=== PATIENT | male | born 1955 | race Caucasian/White ===

== ENCOUNTER 2024-07-30 14:47 | Inpatient (IN) | payer MEDICARE, SELFPAY ==
[2024-07-30] VITALS (31 sets, daily range): BP systolic 91–153; BP diastolic 58–120; BMI 38.3
[2024-07-30 12:38] LABS: % Basophils 0.2 % (0-2); % Eosinophils 0.4 % (0-6); % Immature Granulocytes 0.6 % (0-0.5); % Lymphocytes 10.9 % (20.5-51.1); % Neutrophils 81.9 % (42.2-75.2); Absolute Eosinophils 0.1 10^3/uL (0-0.7); Absolute Immature Granulocytes 0.1 10^3/uL (0-0.05); Absolute Lymphocytes 1.8 10^3/uL (1.2-3.4); Absolute Neutrophils 13.5 10^3/uL (1.4-6.5); Hematocrit 39.6 % (39.0-52.0); Hemoglobin 13.9 g/dL (13.0-18.0); Mean Corp Hgb Conc. 35.1 g/dL (33.0-37.0); Mean Corpuscular Hgb 33.8 pg (27.0-31.0); Mean Corpuscular Volume 96.4 fL (80.0-94.0); Mean Platelet Volume 11.4 fL (7.4-10.4); Nucleated Red Blood Cells % 0 % (-); Platelet Count 207 10^3/uL (130-400); Red Blood Cell Count 4.11 10^6/uL (4.70-6.10); Red Cell Dist. Width 14.5 % (11.5-14.5); White Blood Cell Count 16.5 10^3/uL (4.8-10.8)
--- NOTE | 2024-07-30 12:50 | EDRN ---
Per Dr. Clements request pt placed on crash cart pad and ECG monitoring.
[2024-07-30 12:57] LABS: ALT (SGPT) 14 U/L (0-50); AST (SGOT) 21 U/L (17-59); Albumin 3.3 g/dl (3.5-5.0); Alkaline Phosphatase 98 U/L (38-126); Blood Urea Nitrogen 9 mg/dl (9-20); Calcium 8.7 mg/dl (8.4-10.2); Carbon Dioxide 19 mmol/L (22-30); Chloride 106 mmol/L (98-107); Estimated Creatinine Clearance 107 ml/min; Glucose 157 mg/dl (70-99); Lipase 40 U/L (23-300); Potassium 3.9 mmol/L (3.5-5.1); Sodium 140 mmol/L (135-145); Total Bilirubin 2.1 mg/dl (0.2-1.3); Total Protein 6.8 g/dl (6.3-8.2); eGFR > 60.00
[2024-07-30] MEDS: NSS 500 IV (12:57)
--- NOTE | 2024-07-30 12:58 | EDRN ---
spoke with pharmacy, they will send down atropine as it is not able to be withdrawn from pyxis as ordered.
[2024-07-30 13:00] LABS: Alcohol None Detected
[2024-07-30] MEDS: ATROPINE 0.1 MG/ML SYRINGE 0.5 MG IV (13:06)
[2024-07-30 13:23] LABS: Magnesium 2.2 mg/dl (1.6-2.3)
--- NOTE | 2024-07-30 13:41 | ED.GENMED ---
History of Present Illness
General
Chief Complaint: Seizure
Source: patient, spouse and ambulance crew
Exam Limitations: none
Time Seen by Provider: 07/30/24 12:37
Nursing documentation reviewed up to this point in time: agreed with
History of Present Illness
History of Present Illness:
Patient with history of chronic alcoholism, who has not seen any physicians for over 3 years, presents to ED from home after witnessed seizure-like activity by his , while lying in bed, lasting approximately 15 to 20 minutes. However, spouse
does report that patient has had 1 week history of 'not feeling well' along with dizziness and 1 vomiting episode yesterday. Per patient, patient does feel dizziness with positional changes and he is wondering whether or not he may be vertigo
episodes. Patient has no recollection of events that happened this morning. Patient denies headache. Denies tongue biting. Denies urinary or bowel incontinence. Denies previous history of similar symptoms. Patient does drink alcohol daily,
including last night, namely beer. Patient currently does not take any prescribed medications. In brought to the hospital, secondary to nausea, patient was given droperidol, as well as Zofran, as well as IV fluids. Patient was noted to be
bradycardic in route, as well as upon arrival in ED.
Past History
Past History
ED Past Medical History: HTN
Social History
Tobacco: Non-smoker
Alcohol: Daily
Personal:
Review of Systems
Review of Systems
Allergies reviewed?: Yes
All Other Systems: ROS reviewed and negative except as documented in HPI and ROS
Constitutional: Reports no symptoms
EENT: Reports no symptoms
Respiratory: Reports no symptoms
Cardiac: Reports no symptoms
ABD/GI: Reports nausea; Denies abdominal pain
Musculoskeletal: Reports no symptoms
Skin: Reports no symptoms
Neurological: Reports dizzy and other (Seizure-like activity)
Phy Exam
Physical Exam
Physical Exam:
Physical Exam
General: no apparent distress, not acutely ill. afebrile. overweight
Head: nc/at. eomi
Neck: supple. no meningeal signs.
Heart: bradycardic, no murmur. equal radial pulses.
Lungs: no acute respiratory distress. clear bilaterally
Abdomen: normal bowel sounds. not tender.
Neuro: alert and oriented. no focal neurological deficits
Skin: venous stasis, chronic.
Psychiatric: well kept. interactive and cooperative
Extremities: LE b/l edema. no calf tenderness.
Course
Orders/Labs/Results
Orders:
Orders
07/30/24
Electrocardiogram (*1) Stat
Reason for Study: Chest Pain
Comment: DONE NO ORDER ENTERED
07/30/24 12:21
EKG [Electrocardiogram (*1)] Urgent
Reason for Study: Fatigue / Weakness
07/30/24 12:22
EKG- Treatment ONCE
07/30/24 12:26
Alcohol Urgent
CMP [Comprehensive Metabolic Panel] Urgent
Complete Blood Count/With Diff Urgent
Lipase Urgent
Magnesium Urgent
TSH Reflex To Free T4 Urgent
Comment: ADD ON
07/30/24 12:39
Add On- LAB Urgent
Tests Added?: magnesium, TSH to reflex free T4
07/30/24 12:50
CT Head W/o Iv Contrast Urgent
Comment:
Reason For Exam: new onset seizure
0.9% Sodium Chloride 500 ml [Nss] 500 ml IV BOLUS
07/30/24 12:56
Atropine Sulfate [Atropine 0.1 mg/ml Syringe] 0.5 mg IV NOW STA
07/30/24 13:24
COVID-19 Antigen Urgent
Source: Nasal Swab
07/30/24 13:50
Echo 2D MMode Color/Doppler Urgent
Reason for Study: heart block
Comment: LJ MODIFIED
07/30/24 13:58
Admit/Transfer Patient As Directed
Co-Sign Provider:
Level of Care: Inpatient admission
Assign to:: ICU
Physician / Group: rodger
Diagnosis: complete heart block
Reason for Hospitalization: complete heart block
Expected length of stay greater than two midnights?: Yes
ELOS- Estimated Length of Stay in days: 2
I certify the patient meets the requirements for IP care: Yes
Code Status As Directed
Resuscitation Status: Full Code
PRN Pain Medication Management As Directed
May give lesser potent ordered pain med per pt: Yes
preference::
Protocol:: Medication orders for pain may be administered in a
manner that supports deferring to patient preference
when the pt is:
- Requesting an ordered lesser potent pain medication.
Least to most potent pain medications are defined
as: acetaminophen < NSAID < tramadol < opioids
(morphine, oxycodone, hydromorphone).
- Requesting a lesser dose of the same medication IF
ORDERED.
- Requesting a less intrusive route of administration
if both routes are prescribed by the provider (PO <
IV).
07/30/24 14:10
CR Chest Portable - 1 View Urgent
Comment:
Reason For Exam: SOB
Reason Study Needs to be Portable: Unable to Transport
07/30/24 14:12
CARDIOLOGY CONSULT Routine
Consulting Provider: Eddi Kyle
Was physician already notified: Yes
07/30/24 14:22
CARDIOLOGY CONSULT Urgent
Consulting Provider: Eddi Kyle
Was physician already notified: Yes
Reason for consult: complete heart block
07/30/24 Dinner
Regular
At Your Request: Full Participation
07/30/24 15:48
0.9% Sodium Chloride 1000 ml [Nss] 1,000 ml IV 100 mls/hr
0.9% Sodium Chloride [Nss (Preservative Free)] See Protocol IV PRN PRN
FOLic ACID [Folvite] 1 mg 0.9% Sodium Chloride 50 ml [Nss] 50 ml IV DAILYPRN
Lorazepam [Ativan] 1 mg IV Q1HPRN PRN
Lorazepam [Ativan] 1 mg PO Q2HPRN PRN
Lorazepam [Ativan] 2 mg IV Q1HPRN PRN
07/30/24 15:48
Activity As Directed
Activity Level: As Tolerated
MSAS SCORE As Directed
MSAS Score 0-4: Repeat MSAS every 2 hours until 0-4 for three consecutive assessments, then every 4 hours x 48
hours.
MSAS Score 5-7: For MILD withdrawl symptoms. Repeat MSAS and RASS every 2 hours
MSAS Score 8-11: For MODERATE withdrawal symptoms. Repeat MSAS and RASS every 1 hour. Consider ICU or IMU
level of care.
MSAS Score > 11: For SEVERE withdrawal symptoms. Repeat MSAS and RASS every 1 hour. Notify provider, consider
ICU level of care.
MSAS Additional Instructions: If no improvement or no decrease in score from severe to moderate within 12
hours, consult psychiatry
MSAS Notify Provider: Notify provider if patient requires more than 10 mg of Lorazepam in eight hour period.
Pneumatic Compression Sleeves As Directed
Type: Knee high
Vital Signs As Directed
Frequency: Per unit guidelines
DX Deep Vein Thrombosis Video Routine
07/30/24 16:00
Thiamine Injection 200 mg IV Q8
07/30/24 19:18
Urinalysis Reflex To Culture Urgent
Date Specimen was Collected: 07/30/24
Time Specimen was Collected: 19:16
07/31/24 03:35
Complete Blood Count/With Diff IN AM
Comprehensive Metabolic Panel IN AM
07/31/24 08:00
FOLic ACID [Folvite] 1 mg PO DAILY
08/02/24 20:00
Thiamine HCl [Vitamin B1] 100 mg PO BID
Abnormal Lab Results
07/30/24
12:26
WBC 16.5 H 10^3/uL
(4.8-10.8)
RBC 4.11 L 10^6/uL
(4.70-6.10)
MCV 96.4 H fL
(80.0-94.0)
MCH 33.8 H pg
(27.0-31.0)
MPV 11.4 H fL
(7.4-10.4)
Abs Immat Gran (auto) 0.1 H 10^3/uL
(0-0.05)
Absolute Neuts (auto) 13.5 H 10^3/uL
(1.4-6.5)
Absolute Monos (auto) 1.0 H 10^3/uL
(0.1-0.6)
Immature Gran % 0.6 H %
(0-0.5)
Neutrophils % 81.9 H %
(42.2-75.2)
Lymphocytes % 10.9 L %
(20.5-51.1)
Carbon Dioxide 19 L mmol/L
(22-30)
Glucose 157 H mg/dl
(70-99)
Total Bilirubin 2.1 H mg/dl
(0.2-1.3)
Albumin 3.3 L g/dl
(3.5-5.0)
07/30/24 12:26
07/30/24 12:26
Vital Signs
Initial and Last Documented VS:
Initial Vital Signs
Temp Pulse Resp BP Pulse Ox
97.3 F 45 12 119/64 94
07/30/24 12:16 07/30/24 12:16 07/30/24 12:16 07/30/24 12:16 07/30/24 12:16
Last Documented Vital Signs
Temp Pulse Resp BP Pulse Ox
98 F 41 15 145/54 97
07/31/24 07:31 07/31/24 09:00 07/31/24 09:00 07/31/24 09:00 07/31/24 09:00
MDM/Problems Addressed
MDM/Problems Addressed:
Atropine 0.5 mg iv given without change in heart rate.
History, exam, and EKG concerning for complete heart block.
Zoll pads placed on the patient immediately. Patient remains alert and awake, with stable blood pressure.
Leukocytosis noted - no evidence of focal infection. COVID negative. Seizure, may be secondary to alcohol withdrawal vs convulsion from complete heart block/syncope.
Discussed with on-call cardiology, Dr. Kyle, who will come and evaluate the patient.
Critical care statement: A total of 60 minutes of critical care time was provided for this patient. This includes management of unstable vital signs, evaluation of the patient at bedside, reviewing the patient's pertinent medical records, discussion
with consultants, review of old EKGs and review of pertinent medical records. This time with separate from time utilized to perform the aforementioned documented procedures
*Critical Care Note
Total Time (30-74mins, 75-104mins- exclusive of procedures): 60 min
ED Attending Note
-
Portions of this chart may have been created with voice recognition software.� Occasional wrong word or��sound alike� substitutions may have occurred due to the inherent limitations of voice recognition software.
Discharge Plan
Departure
Patient Disposition: Admit
Date of Disposition: 07/30/24
Time of Disposition: 14:03
Admit to: IMU
Presentation/result/management discussed w/ accepting MD/DO: Hospitalist
Discharge Problem:
Complete heart block, Syncope, Alcoholism
Interventions
Interventions:
*Risk Screen - Suicide Last Done: 07/30/24 15:26
*General Assessment Last Done: 07/30/24 12:16
*Neglect/Abuse Screening Last Done: 07/30/24 12:16
ED- Fall Risk Assessment Last Done: 07/30/24 12:16
*ED COVID-19 Vaccine History Last Done: 07/30/24 16:21
*Nursing Disposition Last Done: 07/30/24 15:25
ED- Cardiac Assessment Last Done: 07/30/24 12:16
ED- Neurological Assessment Last Done: 07/30/24 12:16
ED- Pulmonary Assessment Last Done: 07/30/24 12:30
Discharge Date and Time
Discharge Date/Time: 07/30/24 15:48
[2024-07-30 13:51] LABS: COVID-19 Antigen Negative (Negative)
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
--- NOTE | 2024-07-30 14:31 | CON.CAR ---
Addendum entered and electronically signed by Eddi Kyle DO 07/30/24 21:32:
I saw and examined the patient.
The [employer] Adviser's note was reviewed and I agree with the note.
Comment:
Plan:
Complete heart block in setting of hx of LBBB and unresponsive episode with possible seizure activity
Tentative PPM Jul 31 2024 pending further eval and hemodynamic response
Echo with EF 40%, eventual ischemic eval
Monitor QTc
Leukocytosis, check BC, pt afebrile
Significant alcohol use, monitor for withdrawal
updated
Discussed with nursing.
Original Note:
Consultation
Consultation Request
Date/Time Consultation Requested: 07/30/24
Date/Time Consultation Performed: 07/30/24
Requesting Provider: Dr. Keen
Performing Provider: Dr. Kyle
Reason for Consultation: Complete heart block
Medical History
-
History of Present Illness:
Patient came to [facility] today after losing consciousness at home and cardiology is consulted for complete heart block. Patient lives at home with his . Patient saw cardiology in 2010 for preoperative evaluation for possible anal cancer and he had
resection at [facility] and it ended up being benign tissue. Patient never followed up with cardiology again and last saw his PCP in 2017. Patient reports he has been homebound since about 2019. Patient's reports that patient has had visibly increased
ALCALA for the last month. Patient told his that he passed out yesterday, but awoke on his own and went to bed and took a nap. Details of yesterday's syncope are not clear and patient has severe ETOH use disorder. Patient then had an episode today
where he was unresponsive and flailing his arms so his called 911. When EMS arrived the patient was able to ambulate downstairs and in the ambulance he was found to be in complete heart block and was given droperidol 1.25 mg IV x1 plus Zofran 4
mg IV x1. In [facility] patient was given Zofran atropine 0.5 mg IV x1. Patient noted to have leukocytosis with left shift, but no fever. He has malodorous LEs, but no obvious wounds.
PMH:
h/o cLBBB
Severe ETOH use disorder
Marijuana smoker
HTN
Past Medical History
Past Medical History: Other (in HPI)
Past Surgical History: Orthopedic and Other (benign anal mass resection at [facility] 2010)
Social History
Tobacco: Non-Smoker
Alcohol: Other (Drinks 10 beers a day, denies binge drinking, no recent attempts to decrease ETOH intake)
Drug: Marijuana (once a week)
Personal:
Living: With Family
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
Family History
Family History: Cancer
Allergies / Home Medications
Allergy/AdvReac Type Severity Reaction Status Date / Time
No Known Allergies Allergy Verified 07/30/24 12:15
�Medication �Instructions �Recorded �Confirmed �Type
loperamide 2 mg tablet 2 mg PO Q4HPRN PRN diarrhea 07/30/24 07/30/24 History
Review of Systems
-
History Source: Patient and Family ( sitting bedside helping with HPI)
All other systems: Negative unless noted
Physical Exam
Vital Signs
Temp Pulse Resp BP Pulse Ox
97.3 F 52 23 136/73 99
07/30/24 12:16 07/30/24 14:00 07/30/24 14:00 07/30/24 14:00 07/30/24 14:00
GEN: NAD. AAOx3
HEENT: EOMI, MMM
LUNGS: CTA B/L, no wheezes/rales
CV: CHB on tele. Reg and slow, no murmur
ABD: soft, BS+, NT, ND
EXT: +B/L LE lymphedema. B/L LEs with malodor upon lifting sheets, thickened skin without obvious wounds or drainage. +2 B/L LE edema
NEURO: Gross non-focal
SKIN: Warm, dry and pink. No rash
Lab Results
07/30/24 12:26
07/30/24 12:26
Impression / Plan
-
PCP: None
Cardiology: Dr. Bartlett, last seen 2010
Impression:
Loss of consciousness 07/30/24
Seizure activity
Complete heart block
h/o cLBBB
Syncope
Severe ETOH use disorder
Marijuana smoker
Leukocytosis
Abnormal CXR
Hyperglycemia without h/o DM
Echo 12/20/10: EF 50 to 55% without clear wall motion abnormality, mild MR, normal RV size and function, dilated aortic root measuring 4.1 cm
Echo 07/30/24: Report pending
Plan:
-Patient came to [facility] today after losing consciousness at home and cardiology is consulted for complete heart block. Patient lives at home with his . Patient saw cardiology in 2010 for preoperative evaluation for possible anal cancer and he had
resection at [facility] and it ended up being benign tissue. Patient never followed up with cardiology again and last saw his PCP in 2016. Patient reports he has been homebound since about 2019. Patient's reports that patient has had visibly increased
ALCALA for the last month. Patient told his that he passed out yesterday, but awoke on his own and went to bed and took a nap. Details of yesterday's syncope are not clear and patient has severe ETOH use disorder. Patient then had an episode today
where he was unresponsive and flailing his arms so his called 911. When EMS arrived the patient was able to ambulate downstairs and in the ambulance he was found to be in complete heart block and was given droperidol 1.25 mg IV x1 plus Zofran 4
mg IV x1. In [facility] patient was given Zofran atropine 0.5 mg IV x1. Patient noted to have leukocytosis with left shift, but no fever. He has malodorous LEs, but no obvious wounds.
-Complete heart block on tele of unclear chronicity. Talked with patient and and there are no obvious reversible causes. Currently with stable and narrow escape complexes and pads in place. Talked with patient and family about PPM once
leukocytosis is sorted out and outlined the possibility of TVP if needed, but that patient currently stable. Reviewed short-term activity limitations of PPM.
-Will make NPO and patient is tentatively added for a PPM 07/31/24.
-Check echo
-Follow ECG, repeat ordered by me for now.
-Follow QT on ECG, patient was given droperidol and Zofran in the ambulance in the setting of CHB. Potassium 3.9 and magnesium 2.2, watch for ventricular arrhythmias.
-Blood cultures x2 ordered by me. Patient is afebrile.
-Chronic LE lymphedema with malodor, but no obvious wounds.
-Patient and concerned about EOTH withdrawal. Explained MSAS protocol which has been ordered. Patient is not interested in changing ETOH use however.
-Patient with h/o HTN, but currently not taking any meds largely because he has not seen his PCP since 2017. Follow BP. Previously he took minoxidil 2.5 mg BID and Benicar/HCTZ 40/25 mg daily.
-Check HgbA1c
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
--- NOTE | 2024-07-30 15:02 | EDRN ---
attempted to call report to RETAIL INVENTORY CONTROL CLERK Willard. Will call back when available
[2024-07-30 15:03] LABS: TSH Reflex To Free T4 3.47 uIU/ml (0.47-4.68)
--- NOTE | 2024-07-30 16:00 | PTCARENOTE ---
Received pt from the ED with Zoll/pacer pads on, telemetry, oxygen 3 liters nasal cannula intact sitting upright on the stretcher. He appears unkept, and pale. Cool mottled extremities with doppler DP pulses, palpable radial pulses. He is mentating
and cooperative with care. He was informed of the plan of care and importance of notifying RN if he experiences and symptoms of withdrawal such as irritability, tremors, sweating and restlessness. He verbalized his understanding. Right AC
prehospital site intact. Lungs CTA posteriorly, orthopneic. Mild ALCALA with turning for assessment and removing old linen. His face was purple when he turned back. HOB elevated. Obese round abdomen. Old stool present around his anus. MASD noted,
between his scrotum and upper inner thighs he has MASD. Left FA with 1.6cm linear cut that is scabbed and CAR HIKER. Scattered bruises on his extremities. Bladder scanned for 49ml's upon arrival for outstanding urine. He is aware that we need a sputum
culture and urine sample. Right lower extremity with +3 edema, skin thick and wrinkled. Left L/E +1-2 edema. He reported that he cannot walk 15' without having to sit down. All of his fingers do not straighten out. He said it was Dupuytren's
Contracture, but it was not diagnosed by a physician, he said his sister was diagnosed with it. Safe environment maintained. Will continue to monitor. was informed of the plan of care.
[2024-07-30] MEDS: NSS 1000 IV (17:13)
[2024-07-30] MEDS: THIAMINE INJECTION 200 MG IV ×2 (18:03→23:12)
[2024-07-30 19:06] LABS: APTT 30.1 Sec (23.4-35.0); INR 1.38
[2024-07-30 19:30] LABS: Urine Albumin 2+ (Neg - Trace); Urine Bilirubin 1+ (Negative); Urine Character Clear (Clear); Urine Color Amber; Urine Glucose Negative (Negative); Urine Ketone 1+ (Negative); Urine Leukocyte Trace (Negative); Urine Nitrite Negative (Negative); Urine Occult Blood Negative (Negative); Urine Urobilinogen 2+ (Neg - 1+)
[2024-07-30 20:02] LABS: Hepatitis C Antibody Negative (Negative)
[2024-07-30 20:02] LABS: Urine Red Blood Cell 0-2 /HPF (0-2)
[2024-07-30] MEDS: DESENEX/MITRAZOL/ZEASORB 1 APPLIC TOPICAL (23:12)
[2024-07-31] VITALS (34 sets, daily range): BP systolic 94–180; BP diastolic 54–120; BMI 37.6
--- NOTE | 2024-07-31 00:37 | PTCARENOTE ---
systems reviewed, pt begins NPO diet, sinus watson with pacer pads on, pt upright in bed with NC 3L, MSAS per worklist, pt denies any pain, NS running @ 80ml, Desenex ordered for MAB in groin areas, makes needs known, call muse within reach,
otherwise refer to documentation.
[2024-07-31] MEDS: NSS 1000 IV (03:44)
[2024-07-31 03:59] LABS: % Basophils 0.2 % (0-2); % Eosinophils 0.2 % (0-6); % Immature Granulocytes 0.6 % (0-0.5); % Lymphocytes 17.5 % (20.5-51.1); % Monocytes 7.2 % (1.7-9.3); % Neutrophils 74.3 % (42.2-75.2); Absolute Immature Granulocytes 0.1 10^3/uL (0-0.05); Absolute Lymphocytes 1.9 10^3/uL (1.2-3.4); Absolute Monocytes 0.8 10^3/uL (0.1-0.6); Hematocrit 36.2 % (39.0-52.0); Hemoglobin 12.7 g/dL (13.0-18.0); Mean Corp Hgb Conc. 35.1 g/dL (33.0-37.0); Mean Corpuscular Hgb 33.6 pg (27.0-31.0); Mean Corpuscular Volume 95.8 fL (80.0-94.0); Mean Platelet Volume 11.6 fL (7.4-10.4); Nucleated Red Blood Cells % 0 % (-); Platelet Count 185 10^3/uL (130-400); Red Blood Cell Count 3.78 10^6/uL (4.70-6.10); Red Cell Dist. Width 14.4 % (11.5-14.5); White Blood Cell Count 10.8 10^3/uL (4.8-10.8)
[2024-07-31 04:17] LABS: ALT (SGPT) 12 U/L (0-50); AST (SGOT) 18 U/L (17-59); Albumin 2.9 g/dl (3.5-5.0); Alkaline Phosphatase 81 U/L (38-126); Blood Urea Nitrogen 10 mg/dl (9-20); Calcium 8.5 mg/dl (8.4-10.2); Carbon Dioxide 19 mmol/L (22-30); Chloride 110 mmol/L (98-107); Estimated Creatinine Clearance 121 ml/min; Glucose 100 mg/dl (70-99); Potassium 4.2 mmol/L (3.5-5.1); Sodium 138 mmol/L (135-145); Total Bilirubin 1.7 mg/dl (0.2-1.3); Total Protein 6.3 g/dl (6.3-8.2); eGFR > 60.00
[2024-07-31] MEDS: FOLVITE 1 MG PO (07:26)
[2024-07-31] MEDS: THIAMINE INJECTION 200 MG IV ×2 (07:26→16:33)
[2024-07-31] MEDS: DESENEX/MITRAZOL/ZEASORB 1 APPLIC TOPICAL ×2 (07:27→19:59)
--- NOTE | 2024-07-31 07:33 | PTCARENOTE ---
Received patient from senior contract specialist. Patient is AAOx4, pleasant, cooperative. He is on 3L nasal cannula, 97%. Patient is sinus watson on monitor, in 40s. Lower extremity edema, discoloration, hardening of the skin. Dr. Crook in during
assessment. referred patient to lymphedema clinic. Patient is NPO, urinal at bedside, NSS infusing through left forearm. Patient plan for pacer today. Awaiting time from cardiology. Orders reviewed.
--- NOTE | 2024-07-31 08:27 | W.PN.HOSP.TC ---
Today's Communication/Plan
-
Await pacemaker
Assessment / Plan
Assessment / Plan
Gen-AAOx3, NAD, obese
HEENT-NC, AT, anicteric, clear oral mm
Neck-supple
CV-reg, no M, +S1/S2
Lungs-clear B/L
Abd-soft, NT, ND
Ext-bilateral lower extremity lymphedema, right greater than left.
Musculoskeletal-no cyanosis, clubbing
Skin-warm and dry
Neuro-grossly non-focal
Psych-calm, cooperative
Complete heart block -presentation with syncope, seizure. Await permanent pacemaker today. Cardiology input noted. NPO. Sinus bradycardia noted. TSH 3.47.
New onset seizures -differential diagnosis includes complete heart block versus alcohol related seizure versus other causes. Denies history of seizures. CT head without acute disease. No indication for antiepileptics currently. If seizures recur
will consult neurology.
Transient leukocytosis -doubt infection. Suspect leukemoid reaction due to presentation with syncope, seizure, complete heart block. Looks nontoxic.
Bilateral pleural effusions -chest x-ray shows small to moderate right effusion, small left effusion. Patchy parenchymal opacity in the left lower lung most likely atelectasis. Right lower lung atelectasis. Denies significant pulmonary symptoms.
Chronic lower extremity lymphedema -has not been addressed as an outpatient. Does not have a physician. Recommend outpatient follow-up with lymphedema clinic in [place].
Severe alcohol use disorder -reportedly last drink was July 29. Monitor for alcohol withdrawal syndrome. Continue thiamine, folic acid. Denies history of alcohol withdrawal in the past. Patient interested in quitting.
Left bundle branch block
Aortic dilation
Essential hypertension -not on medications at home. Blood pressure stable here. Monitor for now.
Obesity due to excess calories
Full code
Anticipated Discharge: > 48 hours
Subjective/Interval History
-
Date of Service: July 31, 2024
Patient seen and examined. No complaints.
Objective Data
-
Labs:
Laboratory Results
07/31/24
03:35
WBC 10.8
Hgb 12.7 L
Hct 36.2 L
Plt Count 185
Sodium 138
Potassium 4.2
Chloride 110 H
Carbon Dioxide 19 L
BUN 10
Creatinine 0.8
Glucose 100 H
Calcium 8.5
Total Bilirubin 1.7 H
AST 18
ALT 12
Alkaline Phosphatase 81
Vital Signs:
Vital Signs
Temp Pulse Resp BP Pulse Ox
98 F 43 15 141/71 98
07/31/24 07:31 07/31/24 07:30 07/31/24 07:30 07/31/24 07:00 07/31/24 07:41
I&O
07/30/24 07/31/24 08/01/24
06:59 06:59 06:59
Intake Total 1860 / 1960 100 / 100
Output Total 220 / 220
Balance 1640 / 1740 100 / 100
Review of Systems
-
History Source: Patient
All other systems: Reviewed and negative
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
[2024-07-31 08:51] LABS: Troponin I 0.322 ng/ml
--- NOTE | 2024-07-31 10:00 | PTCARENOTE ---
Asked Dr. Bartlett if they wanted patient zoll on pacer mode at particular rate. Patient has been consistently in 40s. and has been asymptomatic. no further orders at this time. Awaiting laboratory animal caretaker time/plan.
[2024-07-31] MEDS: VIBRAMYCIN 260 MG IV (10:50)
[2024-07-31] MEDS: STERILE WATER FOR INJECTION 20 ML IV (10:50)
[2024-07-31] MEDS: ROCEPHIN 2000 MG IV (10:50)
[2024-07-31] MEDS: LOW STRENGTH ASPIRIN 324 MG PO (11:03)
--- NOTE | 2024-07-31 11:11 | W.PN.UPDATE ---
Update Note
Progress Note Update
Briefly, patient is a pleasant 68-year-old male with a past medical history significant for alcohol use disorder, hypertension who. Presented on 07/30/2024 due to syncope possible seizure at home. Patient found to be in complete heart block with
stable hemodynamics. Initial evaluation demonstrated a right bundle morphology escape with evidence of complete heart block and PVCs. Echocardiogram demonstrated LVEF of 40% with regional wall motion abnormality (base to mid inferolateral, basal
to mid inferoseptal, basal inferior munguia are hypokinetic). Patient additionally had an elevated troponin of 0.3. No prior ischemic evaluation or testing documented. With this in mind, patient undergo ischemic evaluation. If patient were to have
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 Due to patient's symptomatic complete heart block and possible syncope, if no evidence of obstructive coronary disease as etiology or
van driver for patient's presentation, patient to undergo implantation of dual-chamber pacemaker. With regards to pacemaker, we discussed pacemaker indications and device implant in detail. For implant there is an approximate 1:1000 risk of
OR/stroke/ and a 1% risk of pneumothorax/tamponade/infection/bleeding. We also discussed post procedure implant restrictions including positions to avoid with implant arm for first six weeks after implant as well as driving restrictions. I took
time to answer all questions. I spent time discussing this with patient, patient's , and patient's son. Consent signed.
--- NOTE | 2024-07-31 11:26 | PTCARENOTE ---
Report given to offset label rewinder RN. patient taken down to mechanical shop laborer, possible pacer placement after. Dr. Bartlett and Dr. Castelan both in to explain procedure/risks and signed consent obtained. Plan of care reviewed with patient and . Abx given as
charted in JAN.
--- NOTE | 2024-07-31 11:56 | CM ---
CM following re: discharge planning.
Reviewed pt's chart, met with pt. Pt's spouse and pt's son at bedside. Pt gave me his permission to interview with family present.
Pt is a 68 year old male, admitted with primary dx of syncope, seizure. Per Rounds meeting, pacemaker placement today.
Pt reports he lives with spouse 2SH, 2 steps to enter, has supportive son. 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 No DME, VN or SNF history.
Pt admitted to significant h/o alcohol abuse. Pt reports he drinks 8 to 10 beers 16 ounce per day which he last drank last night and he does smoke marijuana daily, not medical marijuana. Pt stated he feels he needs to stop drinking, emotional
support offered and provided. Pt expressed his agreement to meet with [facility] team. A referral to [facility] made, met with ADITYA Waller and he will meet with the pt tomorrow.
PCP: Destiny Parrish
Pharmacy: [facility]
D/C plan: home with [facility] to follow. Family to transport at discharge.
CM will follow with discharge plan updates as hospitalization progresses
--- NOTE | 2024-07-31 12:57 | ITS.CL.CATH ---
Senior Engineer - Catheterization
Cardiac Catheterization
Procedure Report:
LEFT HEART CATHETERIZATION
Date of Procedure: July 31, 2024
Referring: Dr. Julio Chahal
PROCEDURES:
1. Left heart catheterization with coronary angiography
INDICATION: This is a 68-year-old gentleman who consumes 10 or more alcoholic beverages daily and presented to [facility] following an episode of unresponsiveness. He was found to be in complete heart block and admitted to the ICU. His
troponin was mildly elevated at 0.322 ng/ml. He is now referred for coronary angiography.
ACCESS: Right radial artery with placement of a 6 Burmese arterial sheath and right common femoral vein, 6 Burmese sheath
HEMODYNAMICS : (mmHg)
AO (s/d) : 134/68
LV (s/d) : 146/29
LVEDP : 40
CORONARY FINDINGS
DOMINANCE: Right
LEFT MAIN: Normal
LEFT ANTERIOR DESCENDING: The LAD arises normally from the left main and runs in the anterior interventricular groove. The LAD has minor irregularities over its course but no focal obstructive stenosis
CIRCUMFLEX: The circumflex is a medium to large caliber nondominant vessel supplying a single large obtuse marginal branch with only minor irregularities
RIGHT CORONARY ARTERY: The right coronary artery is a medium caliber dominant vessel is widely patent over its course
VENTRICULOGRAPHY: Not done due to an elevated LVEDP
RADIATION SUMMARY: Fluoro Time (min): 3.4, Dose (mGy): 590.8, DAP (Gy.cm2) : 42.8
Closure Device: TR band
CONCLUSIONS
1. Nonobstructive coronary disease
2. Nonischemic cardiomyopathy with elevated LVEDP
RECOMMENDATIONS
1. Planned permanent pacemaker later today
Copy to: Dr. Julio Chahal
--- NOTE | 2024-07-31 13:40 | PTCARENOTE ---
Will complete MSAS upon patient's return. patient still in cath/EP lab.
--- NOTE | 2024-07-31 13:54 | W.PN.CARDCBS ---
Addendum entered and electronically signed by Julio Chahal MD 07/31/24 14:57:
I saw and examined the patient.
The PETROLEUM SUPPLY SPECIALIST or PA's note was reviewed and I agree with the note.
Comment: General: Well developed, well nourished in NAD.
Neck: Supple, no JVD, HJR, carotids +2 B/L, no bruits bilaterally.
Heart: Non displaced PMI, RRR, no murmurs, No S3, S4, no rubs.
Lungs: Scattered rhonchi
Abdomen: Normal bowel sounds, soft, non-tender, non-distended.
Extremities: No clubbing, cyanosis or edema bilaterally.
Neuro: Grossly nonfocal, awake, alert and oriented x3.
45 minutes of discussion with patient, family, EP, interventional cardiology. Plan was for cardiac catheterization later today to exclude CAD as the cause of heart block. Catheterization was unremarkable. Patient undergo permanent pacemaker later
today. Will need to continue to monitor for withdrawal. Presumably the seizure on admission was due to complete heart block with possible pauses although cannot exclude alcohol withdrawal seizure. Will treat cardiomyopathy with Coreg and eventual
ERNIE/ARB after pacer has been implanted. He needs to stop drinking as this is likely the cause of his cardiomyopathy
Original Note:
Today's Communication / Plan
-
Cath with nonobstructive CAD
Remains in complete heart block. Plan for pacemaker implant today
monitor for withdrawal
Impression / Plan
-
PCP: None
Cardiology: Dr. Bartlett, last seen 2010
Impression:
Loss of consciousness 07/30/24
Seizure activity
Complete heart block
Elevated troponin
Cardiomyopathy, unknown type, EF 40%
h/o cLBBB
Syncope
Severe ETOH use disorder
Marijuana smoker
Leukocytosis
Abnormal CXR
Hyperglycemia without h/o DM
Echo 12/20/10: EF 50 to 55% without clear wall motion abnormality, mild MR, normal RV size and function, dilated aortic root measuring 4.1 cm
Echo 07/30/24: EF 40%, base to mid inferolateral, basal to mid inferoseptal and basal inferior munguia hypokinetic, mild concentric LVH, mild MR, mild TR, PAP 45 to 50 mmHg
Plan:
-he presented with unresponsive episode and there was concern for seizure activity.
-afebrile but with leukocytosis and left shift. blood culture pending. Chronic LE lymphedema with malodor, but no obvious wounds.
-noted to have CHB by EKG. remains in CHB overnight with HR in 30s
-echo with EF 40% and WMA which are new compared to prior echo
-trop 0.32, trend trop to peak
-s/p cardiac catheterization with nonobstructive CAD
-plan for PPM today
-reports significant daily ETOH use. advised cessation. monitor for withdrawal
-Patient with h/o HTN, but currently not taking any meds largely because he has not seen his PCP since 2017. Follow BP. Previously he took minoxidil 2.5 mg BID and Benicar/HCTZ 40/25 mg daily.
-Check HgbA1c
PREADMIT DATA:
-Patient came to [facility] today after losing consciousness at home and cardiology is consulted for complete heart block. Patient lives at home with his . Patient saw cardiology in 2010 for preoperative evaluation for possible anal cancer and he had
resection at [facility] and it ended up being benign tissue. Patient never followed up with cardiology again and last saw his PCP in 2017. Patient reports he has been homebound since about 2019. Patient's reports that patient has had visibly increased
ALCALA for the last month. Patient told his that he passed out yesterday, but awoke on his own and went to bed and took a nap. Details of yesterday's syncope are not clear and patient has severe ETOH use disorder. Patient then had an episode today
where he was unresponsive and flailing his arms so his called 911. When EMS arrived the patient was able to ambulate downstairs and in the ambulance he was found to be in complete heart block and was given droperidol 1.25 mg IV x1 plus Zofran 4
mg IV x1. In D[facility] patient was given Zofran atropine 0.5 mg IV x1. Patient noted to have leukocytosis with left shift, but no fever. He has malodorous LEs, but no obvious wounds.
Progress Note - Sales Operations Coordinator
Subjective
Date of Service: July 31, 2024
Remains in complete heart block
Objective
Labs:
07/31/24 03:35
07/31/24 03:35
Labs
Hgb 12.7 g/dL (13.0-18.0) L 07/31/24 03:35
Hct 36.2 % (39.0-52.0) L 07/31/24 03:35
Plt Count 185 10^3/uL (130-400) 07/31/24 03:35
PT 17.0 Sec (11.4-14.6) H 07/30/24 18:34
INR 1.38 07/30/24 18:34
APTT 30.1 Sec (23.4-35.0) 07/30/24 18:34
Sodium 138 mmol/L (135-145) 07/31/24 03:35
Potassium 4.2 mmol/L (3.5-5.1) 07/31/24 03:35
BUN 10 mg/dl (9-20) 07/31/24 03:35
Creatinine 0.8 mg/dL (0.7-1.3) 07/31/24 03:35
Glucose 100 mg/dl (70-99) H 07/31/24 03:35
Troponins
07/31/24
08:12
Troponin I 0.322 H*
Vital Signs and I&O:
Vital Signs
Temp Pulse Resp BP Pulse Ox
98 F 41 15 145/54 97
07/31/24 07:31 07/31/24 09:00 07/31/24 09:00 07/31/24 09:00 07/31/24 09:00
Vital Signs
Temp Pulse Resp BP Pulse Ox
98 F 41 15 145/54 97
07/31/24 07:31 07/31/24 09:00 07/31/24 09:00 07/31/24 09:00 07/31/24 09:00
Intake & Output
07/29/24 07/30/24 07/31/24 08/01/24
07:59 07:59 07:59 07:59
Intake Total 1960 / 2060 400 / 400
Output Total 220 / 220
Balance 1740 / 1840 400 / 400
--- NOTE | 2024-07-31 15:58 | PTCARENOTE ---
Received patient back to [id number], [place] on simple mask at 6L, 98%. Has use of accesory muscles. Patient is now V paced in 60s. handoff completed with BICYCLE II ASSEMBLER and prosthetic lab technician RNs at bedside, Right groin dressing clean dry intact. right wrist TR band
intact. Have started removing air at 1530. Orders to remove 3cc q30min until empty. ECG obtained per order. Right DP pulse by dopper.
[2024-07-31] MEDS: NSS IV (16:02)
[2024-07-31] MEDS: LASIX 40 MG IV (16:33)
[2024-07-31 16:35] LABS: Troponin I 0.732 ng/ml
[2024-07-31 16:43] LABS: Procalcitonin < 0.05 ng/ml (0.0-0.25)
--- NOTE | 2024-07-31 17:07 | ITS.CL.PACE ---
Exterminator Termite - Pacemaker Implant
Pacemaker Implant
Procedure Report:
Primary Dubbing Machine Operator: Liam Bartlett MD
Procedure Date: 07/31/2024
Name of procedure:
1. Placement of a dual-chamber pacemaker with left bundle area pacing lead for conduction system pacing
2. Subclavian venography
History:
1. Patient is a 68-year-old male with a past medical history significant for alcohol use disorder, hyperglycemia without diabetes, who presented with complete heart block following seizure activity/syncope at home. Patient noted on
echocardiography LVEF of 40% with wall motion abnormality. Patient underwent left heart catheterization which demonstrated nonobstructive coronary artery disease. Due to symptomatic complete heart block, patient undergo implantation of
dual-chamber pacemaker.
2. Please refer to H&P for complete history.
Indication:
Symptomatic bradycardia
Complete heart block
Methods:
After informed consent was obtained, the patient was brought to the EP laboratory in a postabsorptive, nonsedated state. Peripheral IV access was established. Prophylactic antibiotics were administered prior to incision. Continuous ECG, blood
pressure, and pulse oximetry were initiated. Cardioversion patch electrodes were placed on the patient's chest and back. A grounding patch was applied to the skin. Sedation was administered by anesthesia services.
In order to define the extrathoracic portion of the subclavian vein and exclude significant venous obstruction or anomalous anatomy, subclavian venography was performed prior to the procedure. Using the patient's left peripheral IV, contrast was
injected and images were recorded. The left subclavian vein and SVC were found to be widely patent.
The left chest was prepared and draped in a sterile fashion. A time-out was performed. Local anesthesia was injected in the subcutaneous tissue in the infraclavicular area. An incision was made medial to the deltopectoral groove. The subcutaneous
tissue was dissected the level of the prepectoral fascia. A subcutaneous pocket was created. Under fluoroscopic guidance and with the assistance of the images from the venogram, 2 separate venipunctures were made using micropuncture and modified
Seldinger technique. These were performed in the extrathoracic portion of the subclavian vein. Guidewires were passed and two peel-away sheaths were placed, and used to advance leads into the circulation.
Fluoroscopy was used to determine likely anatomic site for left bundle branch pacing. The Medtronic C315 sheath was used to deliver the Medtronic 3830 Selectsecure pacing lead with the helix exposed just exposed from the sheath tip during continuous
monitoring when pacemapping the septum during gentle clockwise rotation to obtain a paced QRS morphology of a W pattern in lead V1. Once the suspected optimal site was identified, lead deployment was performed with several rapid rotations as paced
QRS morphology was intermittently monitored until a paced QRS complex in lead V1 demonstrated development of an R wave (qR or rSR). The unipolar pacing impedance drop by greater than 400 ohms suggesting perforation into the left ventricular cavity
and the lead was carefully withdrawn and repositioned. Unipolar pacing impedance dropped by approximately 100-200 ohms suggesting it had reached the left ventricular subendocardial. Stable VEgm injury current is present throughout lead position and
at end of case. Final unipolar pacing impedance is 912 Ohms. Unipolar pacing threshold is stable at 0.75 V @ 0.4 ms. The patient had pre-existing right bundle branch block morphology at baseline. Final conduction system paced QRS complex duration is
134 ms, LVAT is 76 ms, and peak V5 -> peak V1 timing is 58 ms. The C315 sheath was slit under fluoroscopy ensuring lead position and stability.
Next, the right atrial lead was positioned in the right atrial appendage. Adequate sensing and pacing parameters were found, and no diaphragmatic stimulation was seen with high-output pacing. Both sheaths were split, and the leads were secured to
the fascia with Ethibond ties.
The pocket was flushed with antibiotic solution and hemostasis was assured. The generator was connected to the leads and placed inside the pocket. The device was sutured to the fascia. Antibiotic envelope was used. Floseal was applied. The wound
was closed with 3 running layers of absorbable suture, and steri-strips were applied. Dressing applied over steri-strips in standard fashion.
Following the procedure, the patient was taken to the recovery area in stable condition. A chest x-ray to be obtained post procedure as routine.
Lead parameters and device programming:
- RA Lead (Medtronic, Model 5076, # [id number]): Sensing 0.8 mV, Pacing threshold 1.25 V at 0.4 ms, Imp 532 ohm
- RV Lead (Medtronic, Model 3830, # [id number]): Sensing 7.3 mV, Pacing threshold 0.5 V at 0.4 ms, Imp 475 ohm
- Device: Medtronic, Model W1DR01 pacemaker (# [id number]), programmed DDD, mode switch on, lower rate 60, upper tracking rate 130
Conclusions:
1. Successful placement of a dual-chamber pacemaker with conduction system pacing (LBBAP)
2. Subclavian venography
Recommendations:
1. Return to patient room
2. Chest x-ray.
3. IV antibiotics while the patient is admitted.
4. OK to resume home medications as indicated
5. Pressure dressing to be removed in AM, aquacell to remain until wound check
6. Follow-up will be arranged in the office in 7-10 days post-discharge
Lit Mckinney DO
Clinical Cardiac Assembler [employer]yl[employer]
cc: Liam Bartlett MD
--- NOTE | 2024-07-31 17:25 | W.PN.UPDATE ---
Update Note
Progress Note Update
Post pacemaker check
Patient is comfortable, denies shortness of breath, nausea. Left anterior chest discomfort from pacemaker site, well-dressed.
at bedside
Patient is committed to stopping drinking and starting to take care of himself
Follow-up with appropriate physicians was reinforced
Alcohol cessation was reinforced
Will hold Lovenox tonight for DVT prophylaxis, start 08/01
Reviewed with cardiology
[2024-07-31] MEDS: TYLENOL 650 MG PO (18:26)
[2024-07-31] MEDS: VIBRAMYCIN 100 MG PO (19:59)
[2024-07-31] MEDS: ATIVAN 1 MG PO (19:59)
[2024-07-31] MEDS: COREG 3.125 MG PO (19:59)
[2024-07-31] MEDS: ANCEF 5 IV (20:02)
[2024-07-31 21:02] LABS: Troponin I 0.579 ng/ml
--- NOTE | 2024-07-31 22:02 | PTCARENOTE ---
Assumed care of pt at 1900. Pt A/O x4, pleasant and cooperative with care. S/P pacemaker placement today, left chest dressing C/D/I, left arm in immobilizer currently, neurovascular checks ongoing to RLE and RUE (s/p TR band removal), see flowsheet
for details. Pt on 4LNC with SpO2 95-100%. Has been SR with BBB, rate in 60s-70s. See nursing shift assessment flowsheet for full physical assessment details. Pt concerned about going through alcohol withdrawal and reports a headache, pt also with
tremors, MSAS done just before 1999, scored a 5, medicated with Ativan per MSAS protocol (1mg po), see EMAR. Pt now asleep, snoring, arousable to tactile stimuli or loudly calling his name, will briefly awaken (<10 seconds) and then fall right back
to sleep. Unable to answer questions appropriately or carry on a conversation. ICU SURG NURSE Jarrett Irwin in room, ABG ordered/drawn/pending at this time in case pt needs CPAP HS.
[2024-07-31 22:04] LABS: HCO3 23.1 mmol/L (21-28); O2 Saturation % 99.5 % (94-98); PCO2 40 mmHg (35-48); PO2 126 mmHg (83-108); pH 7.37 (7.35-7.45)
[2024-08-01] VITALS (24 sets, daily range): BP systolic 103–163; BP diastolic 63–102; PULSE 60; O2SAT 97–98; BMI 37.3
[2024-08-01] MEDS: THIAMINE INJECTION 200 MG IV ×4 (01:18→23:15)
--- NOTE | 2024-08-01 01:28 | PTCARENOTE ---
Midnight assessment unchanged. Neurovascular assessment unchanged. HR in 60s, SpO2 95-100% on 2LNC. At around 0100 went into pt's room to do CHG cloth bath/change linens. Pt woke up for this, was conversive with staff but was confused. Attempting to
get OOB 'to watch the football game', when asked if he knew where he was pt insisted he did, but when asked to name the place he said 'I'm on my neighbor's lawn'. Pt becoming somewhat argumentative. Pt redirected/reoriented, pt did cooperate and lay
down in bed but still has confused speech but stated 'you guys are great'. Pt now resting with eyes closed. Bed alarm activated.
[2024-08-01] MEDS: ANCEF 5 IV (04:56)
[2024-08-01 05:34] LABS: Hematocrit 36.7 % (39.0-52.0); Hemoglobin 12.8 g/dL (13.0-18.0); Mean Corp Hgb Conc. 34.9 g/dL (33.0-37.0); Mean Corpuscular Hgb 34.5 pg (27.0-31.0); Mean Corpuscular Volume 98.9 fL (80.0-94.0); Mean Platelet Volume 11.4 fL (7.4-10.4); Platelet Count 137 10^3/uL (130-400); Red Blood Cell Count 3.71 10^6/uL (4.70-6.10); Red Cell Dist. Width 14.5 % (11.5-14.5); White Blood Cell Count 11.8 10^3/uL (4.8-10.8)
--- NOTE | 2024-08-01 05:51 | PTCARENOTE ---
Pt more awake and appropriate when doing lab work, asking appropriate questions. 100% AV paced with rate of 60 on monitor.
[2024-08-01 05:52] LABS: Blood Urea Nitrogen 10 mg/dl (9-20); Calcium 8.3 mg/dl (8.4-10.2); Carbon Dioxide 20 mmol/L (22-30); Chloride 110 mmol/L (98-107); Estimated Creatinine Clearance 119 ml/min; Glucose 88 mg/dl (70-99); Magnesium 1.9 mg/dl (1.6-2.3); Potassium 3.9 mmol/L (3.5-5.1); Sodium 142 mmol/L (135-145); eGFR > 60.00
[2024-08-01 06:03] LABS: Troponin I 0.265 ng/ml
--- NOTE | 2024-08-01 07:41 | W.PN.HOSP.TC ---
Today's Communication/Plan
-
BNP
Hemoglobin A1c
Stop antibiotics
PT/OT
Transfer to telemetry if okay with cardiology
Assessment / Plan
Assessment / Plan
Gen-AAOx3, NAD, obese
HEENT-NC, AT, anicteric, clear oral mm
Neck-supple
CV-reg, no M, +S1/S2
Lungs-clear B/L
Abd-soft, NT, ND
Ext-bilateral lower extremity lymphedema, right greater than left.
Musculoskeletal-no cyanosis, clubbing
Skin-warm and dry
Neuro-grossly non-focal
Psych-calm, cooperative
Acute hypoxic respiratory insufficiency -currently requiring 2 L of nasal cannula oxygen. Did require 4 L last night. Chest x-ray 07/31 with what appears to be asymmetric pulmonary edema pattern, mostly on the right side. Moderate right pleural
effusion and small to moderate left pleural effusion possibly increased compared to previous x-ray from 07/30. Differential diagnosis includes pulmonary edema versus less likely community-acquired pneumonia and aspiration pneumonia. Patient did have
vomiting prior to admission. Wean oxygen as able.
Normal procalcitonin noted. Check BNP. Hold further antibiotics and observe closely.
Acute heart failure with reduced EF exacerbation/nonischemic cardiomyopathy -new diagnosis. Presumed alcohol induced cardiomyopathy given heavy alcohol abuse history. Echocardiogram shows LVEF 40% with hypokinesis noted. Cardiac catheterization
with nonobstructive coronary disease. Continue IV Lasix per cardiology. Check BNP.
Complete heart block -presentation with syncope, seizure. TSH 3.47. Dual-chamber permanent pacemaker placed 07/31.
New onset seizures -differential diagnosis includes complete heart block versus alcohol related seizure versus other causes. Denies history of seizures. CT head without acute disease. No indication for antiepileptics currently. If seizures recur
will consult neurology.
Transient leukocytosis -doubt infection. Suspect leukemoid reaction due to presentation with syncope, seizure, complete heart block. Looks nontoxic. Afebrile.
Bilateral pleural effusions -chest x-ray shows small to moderate right effusion, small left effusion. Patchy parenchymal opacity in the left lower lung most likely atelectasis. Right lower lung atelectasis. Denies significant pulmonary symptoms.
Etiology of pleural effusions presumed to be due to heart failure. Albumin noted to be 2.9.
Troponin elevation -suspect acute nonischemic myocardial injury related to multiple factors including complete heart block, CHF, etc. Troponin trending down.
Chronic lower extremity lymphedema -has not been addressed as an outpatient. Does not have a physician. Recommend outpatient follow-up with lymphedema clinic in [place].
Severe alcohol use disorder -reportedly last drink was July 29. Monitor for alcohol withdrawal syndrome. Continue thiamine, folic acid. Denies history of alcohol withdrawal in the past. Patient interested in quitting.
Left bundle branch block
Aortic dilation
Essential hypertension -not on medications at home. Blood pressure stable here. Monitor for now.
Obesity due to excess calories
Full code
PT/OT
Anticipated Discharge: > 48 hours
Subjective/Interval History
-
Date of Service: August 01, 2024
Patient seen and examined. Sleeping when I walked in. Arouses but no complaints.
Objective Data
-
Labs:
Laboratory Results
07/31/24 08/01/24
21:57 05:08
WBC 11.8 H
Hgb 12.8 L
Hct 36.7 L
Plt Count 137 D
HCO3 23.1
Sodium 142
Potassium 3.9
Chloride 110 H
Carbon Dioxide 20 L
BUN 10
Creatinine 0.8
Glucose 88
Calcium 8.3 L
Vital Signs:
Vital Signs
Temp Pulse Resp BP Pulse Ox
97.7 F 60 18 135/93 98
08/01/24 04:03 08/01/24 06:00 08/01/24 06:00 08/01/24 06:00 08/01/24 06:00
I&O
07/31/24 08/01/24 08/02/24
06:59 06:59 06:59
Intake Total 1860 / 1960 500 / 500
Output Total 220 / 220 3900 / 3900
Balance 1640 / 1740 -3400 / -3400
Review of Systems
-
History Source: Patient
All other systems: Reviewed and negative
--- NOTE | 2024-08-01 08:06 | W.PN.ANS.POP ---
Anesthesia Post Operative
- Anesthesia Post Op Note
Vital Signs Stable-See Nursing Note: Yes
Airway Patent: Yes
Adequate Pain Control: Yes
Change in Mental Status: No
Current Postoperative Nausea & Vomiting: No
Anesthesia Complications: No
General Anesthetic Recall: No
Unplanned Admission: No
Post Op Hydration Adequate: Yes
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
[2024-08-01] MEDS: COREG 3.125 MG PO ×2 (08:46→19:26)
[2024-08-01] MEDS: LASIX 40 MG IV ×2 (08:46→16:04)
[2024-08-01] MEDS: DESENEX/MITRAZOL/ZEASORB 1 APPLIC TOPICAL (08:46)
[2024-08-01] MEDS: FOLVITE 1 MG PO (08:46)
[2024-08-01 08:48] LABS: Glycohemoglobin (HgbA1c) 4.8 % (4.0-5.6)
--- NOTE | 2024-08-01 09:36 | W.PN.CARDCBS ---
Addendum entered and electronically signed by Julio Chahal MD 08/01/24 09:44:
Case management consult to assess cost of Jardiance
Original Note:
Today's Communication / Plan
-
Continue IV Lasix
Add lisinopril
Continue to watch for DTs
Impression / Plan
-
PCP: None
Cardiology: Dr. Bartlett, last seen 2010
Impression:
Loss of consciousness 07/30/24
Seizure activity
Complete heart block status post permanent pacemaker 07/31/2024
Nonischemic myocardial injury
Cardiomyopathy, nonischemic, EF 40%
h/o cLBBB
Syncope
Severe ETOH use disorder
Marijuana smoker
Leukocytosis
Abnormal CXR
Hyperglycemia without h/o DM
Echo 12/20/10: EF 50 to 55% without clear wall motion abnormality, mild MR, normal RV size and function, dilated aortic root measuring 4.1 cm
Echo 07/30/24: EF 40%, base to mid inferolateral, basal to mid inferoseptal and basal inferior munguia hypokinetic, mild concentric LVH, mild MR, mild TR, PAP 45 to 50 mmHg
Catheterization 07/31/2024: Nonobstructive CAD, LVEDP 40
Plan:
Catheterization 07/31/2024 with nonocclusive disease
Cardiomyopathy felt to be due to alcohol use
Will continue carvedilol and add lisinopril
Consider eventual Entresto and/or Aldactone depending on blood pressure and renal function
LVEDP on 07/31/2024 was significant elevated consistent with CHF and will continue IV Lasix
He is 100% paced at present
Continue to follow for DT's
Discussed with nursing
PREADMIT DATA:
-Patient came to [facility] today after losing consciousness at home and cardiology is consulted for complete heart block. Patient lives at home with his . Patient saw cardiology in 2010 for preoperative evaluation for possible anal cancer and he had
resection at [facility] and it ended up being benign tissue. Patient never followed up with cardiology again and last saw his PCP in 2017. Patient reports he has been homebound since about 2019. Patient's reports that patient has had visibly increased
ALCALA for the last month. Patient told his that he passed out yesterday, but awoke on his own and went to bed and took a nap. Details of yesterday's syncope are not clear and patient has severe ETOH use disorder. Patient then had an episode today
where he was unresponsive and flailing his arms so his called 911. When EMS arrived the patient was able to ambulate downstairs and in the ambulance he was found to be in complete heart block and was given droperidol 1.25 mg IV x1 plus Zofran 4
mg IV x1. In [facility] patient was given Zofran atropine 0.5 mg IV x1. Patient noted to have leukocytosis with left shift, but no fever. He has malodorous LEs, but no obvious wounds.
Progress Note - Biological Science Technician
Subjective
Date of Service: August 01, 2024
Patient sedated at present after getting Ativan
Objective
Labs:
08/01/24 05:08
08/01/24 05:08
Labs
Hgb 12.8 g/dL (13.0-18.0) L 08/01/24 05:08
Hct 36.7 % (39.0-52.0) L 08/01/24 05:08
Plt Count 137 10^3/uL (130-400) D 08/01/24 05:08
PT 17.0 Sec (11.4-14.6) H 07/30/24 18:34
INR 1.38 07/30/24 18:34
APTT 30.1 Sec (23.4-35.0) 07/30/24 18:34
Sodium 142 mmol/L (135-145) 08/01/24 05:08
Potassium 3.9 mmol/L (3.5-5.1) 09/07/24 05:08
BUN 10 mg/dl (9-20) 08/01/24 05:08
Creatinine 0.8 mg/dL (0.7-1.3) 08/01/24 05:08
Glucose 88 mg/dl (70-99) 08/01/24 05:08
Troponins
07/31/24 07/31/24 07/31/24
08:12 16:03 20:24
Troponin I 0.322 H* 0.732 H* D 0.579 H*
08/01/24
05:08
Troponin I 0.265 H*
Vital Signs and I&O:
Vital Signs
Temp Pulse Resp BP Pulse Ox
97.7 F 60 17 136/84 96
08/01/24 04:03 08/01/24 08:00 08/01/24 08:00 08/01/24 08:00 08/01/24 08:00
Vital Signs
Temp Pulse Resp BP Pulse Ox
97.7 F 60 17 136/84 96
08/01/24 04:03 08/01/24 08:00 08/01/24 08:00 08/01/24 08:00 08/01/24 08:00
Intake & Output
07/30/24 07/31/24 08/01/24 08/02/24
06:59 06:59 06:59 06:59
Intake Total 1860 / 1960 500 / 500
Output Total 220 / 220 3900 / 3900
Balance 1640 / 1740 -3400 / -3400
Physical Exam
Physical Exam
General: Sedate
Neck: Supple, no JVD, HJR, carotids +2 B/L, no bruits bilaterally.
Heart: Non displaced PMI, RRR, no murmurs, No S3, S4, no rubs.
Lungs: Poor effort
Abdomen: Normal bowel sounds, soft, non-tender, non-distended.
Extremities: No clubbing, cyanosis or edema bilaterally.
Neuro: Sedate
[2024-08-01 09:42] LABS: NT-proBNP 6060 pg/ml
--- NOTE | 2024-08-01 10:30 | PTCARENOTE ---
Left arm immobilizer removed, pt OOB to recliner chair with PT/OT. Breakfast ordered.
[2024-08-01] MEDS: ZESTRIL 5 MG PO (10:38)
--- NOTE | 2024-08-01 11:06 | CHAP ---
Magnus was sleeping soundly, with , Marine, present in room. She was processing the events of last night, when she received phone calls from staff. She was grateful to be able to share that, and to pray together. Emotional and spiritual
support provided.
--- NOTE | 2024-08-01 12:30 | PTCARENOTE ---
Pt remains OOB in recliner chair with at bedside, no changes in assessment.
--- NOTE | 2024-08-01 15:36 | TRANSFER ---
Pt transferred to [id number] via wheelchair, accompanying pt.
[2024-08-01] MEDS: LOVENOX 40 MG SC (19:08)
[2024-08-01] MEDS: DESENEX/MITRAZOL/ZEASORB TOPICAL (19:26)
[2024-08-02] VITALS (11 sets, daily range): BP systolic 127–154; BP diastolic 63–105; PULSE 60; O2SAT 99; BMI 35.5
--- NOTE | 2024-08-02 03:03 | PTCARENOTE ---
Assumed care of patient at change of shift. Pt AAOx3, MSAS zero, and denies any pain. Tele monitor shows Vpaced and occasionally AVpaced. HR in the 60's at rest. Left anterior dressing C/D/I. Pt aware of activity restrictions, and verbalized
understanding. Right radial site MASOOD. Patient requires RW and minimal assist when ambulating from the chair to bed. Pt reports feeling generalized weakness. Denies any dizziness. Spouse at bedside. POC ongoing, call muse within reach.
[2024-08-02 05:10] LABS: Hematocrit 37.2 % (39.0-52.0); Hemoglobin 12.8 g/dL (13.0-18.0); Mean Corp Hgb Conc. 34.4 g/dL (33.0-37.0); Mean Corpuscular Hgb 33.3 pg (27.0-31.0); Mean Corpuscular Volume 96.9 fL (80.0-94.0); Platelet Count 150 10^3/uL (130-400); Red Blood Cell Count 3.84 10^6/uL (4.70-6.10); Red Cell Dist. Width 14.6 % (11.5-14.5); White Blood Cell Count 9.7 10^3/uL (4.8-10.8)
[2024-08-02 05:57] LABS: Albumin 2.9 g/dl (3.5-5.0); Blood Urea Nitrogen 12 mg/dl (9-20); Calcium 8.6 mg/dl (8.4-10.2); Carbon Dioxide 28 mmol/L (22-30); Chloride 103 mmol/L (98-107); Estimated Creatinine Clearance > 125 ml/min; Glucose 91 mg/dl (70-99); Magnesium 1.9 mg/dl (1.6-2.3); Potassium 3.3 mmol/L (3.5-5.1); Sodium 141 mmol/L (135-145); eGFR > 60.00
[2024-08-02] MEDS: LASIX 40 MG IV ×2 (08:19→16:35)
[2024-08-02] MEDS: ZESTRIL 5 MG PO (08:19)
[2024-08-02] MEDS: COREG 3.125 MG PO ×2 (08:20→20:15)
[2024-08-02] MEDS: FOLVITE 1 MG PO (08:20)
[2024-08-02] MEDS: THIAMINE INJECTION 200 MG IV (08:55)
[2024-08-02] MEDS: KCL 40 MEQ PO (09:11)
--- NOTE | 2024-08-02 09:14 | W.PN.HOSP.TC ---
Today's Communication/Plan
-
Oral KCl
Continue diuresis
PT/OT
Assessment / Plan
Assessment / Plan
Gen-AAOx3, NAD, obese
HEENT-NC, AT, anicteric, clear oral mm
Neck-supple
CV-reg, no M, +S1/S2
Lungs-clear B/L
Abd-soft, NT, ND
Ext-bilateral lower extremity lymphedema, right greater than left.
Musculoskeletal-no cyanosis, clubbing
Skin-warm and dry
Neuro-grossly non-focal
Psych-calm, cooperative
Acute hypoxic respiratory insufficiency -currently requiring 2 L of nasal cannula oxygen. Wean oxygen down as able. Etiology of respiratory insufficiency most likely due to pulmonary edema due to acute heart failure. Doubt pneumonia clinically.
Acute heart failure with reduced EF exacerbation/nonischemic cardiomyopathy -new diagnosis. Presumed alcohol induced cardiomyopathy given heavy alcohol abuse history. Echocardiogram shows LVEF 40% with hypokinesis noted. Cardiac catheterization
with nonobstructive coronary disease. Continue IV Lasix per cardiology. BNP 6060.
Lower extremity edema improving, I's and O's are negative.
I spoke with cardiology, Dr. Chahal, plan to continue diuretics.
Hypokalemia -magnesium normal. Replete orally.
Complete heart block -presentation with syncope, seizure. TSH 3.47. Dual-chamber permanent pacemaker placed 07/31.
New onset seizures -differential diagnosis includes complete heart block versus alcohol related seizure versus other causes. Denies history of seizures. CT head without acute disease. No indication for antiepileptics currently. If seizures recur
will consult neurology.
Transient leukocytosis -doubt infection. Suspect leukemoid reaction due to presentation with syncope, seizure, complete heart block. Looks nontoxic. Afebrile.
Bilateral pleural effusions -chest x-ray shows small to moderate right effusion, small left effusion. Patchy parenchymal opacity in the left lower lung most likely atelectasis. Right lower lung atelectasis. Denies significant pulmonary symptoms.
Etiology of pleural effusions presumed to be due to heart failure. Albumin noted to be 2.9.
Troponin elevation -suspect acute nonischemic myocardial injury related to multiple factors including complete heart block, CHF, etc. Troponin trending down.
Chronic lower extremity lymphedema -has not been addressed as an outpatient. Does not have a physician. Recommend outpatient follow-up with lymphedema clinic in [place].
Severe alcohol use disorder -reportedly last drink was July 29. Monitor for alcohol withdrawal syndrome. Continue thiamine, folic acid. Denies history of alcohol withdrawal in the past. Patient interested in quitting. Has not required any
lorazepam over the past 48 hours.
Left bundle branch block
Aortic dilation
Essential hypertension -not on medications at home. Blood pressure stable here. Monitor for now.
Obesity due to excess calories
Full code
PT/OT
updated at the bedside.
Anticipated Discharge: 24 - 48 hours
Subjective/Interval History
-
Date of Service: August 02, 2024
Patient seen and examined. No complaints.
Objective Data
-
Labs:
Laboratory Results
08/02/24
04:44
WBC 9.7
Hgb 12.8 L
Hct 37.2 L
Plt Count 150
Sodium 141
Potassium 3.3 L
Chloride 103
Carbon Dioxide 28
BUN 12
Creatinine 0.7
Glucose 91
Calcium 8.6
Vital Signs:
Vital Signs
Temp Pulse Resp BP Pulse Ox
97.8 F 63 20 148/97 95
08/02/24 07:57 08/02/24 07:57 08/02/24 07:57 08/02/24 07:57 08/02/24 07:57
I&O
08/01/24 08/02/24 08/03/24
06:59 06:59 06:59
Intake Total 500 / 500 720 / 720
Output Total 3900 / 3900 4275 / 4275
Balance -3400 / -3400 -3555 / -3555
Review of Systems
-
History Source: Patient
All other systems: Reviewed and negative
--- NOTE | 2024-08-02 09:35 | W.PN.CARDCBS ---
Today's Communication / Plan
-
Continue IV Lasix
Add Aldactone
Consider change to oral Lasix in next 24 hours if able to wean off of oxygen
Impression / Plan
-
PCP: None
Cardiology: Dr. Bartlett, last seen 2010
Impression:
Loss of consciousness 07/30/24
Seizure activity
Complete heart block status post permanent pacemaker 07/31/2024
Nonischemic myocardial injury
Cardiomyopathy, nonischemic, EF 40%
h/o cLBBB
Syncope
Severe ETOH use disorder
Marijuana smoker
Leukocytosis
Abnormal CXR
Hyperglycemia without h/o DM
Echo 12/20/10: EF 50 to 55% without clear wall motion abnormality, mild MR, normal RV size and function, dilated aortic root measuring 4.1 cm
Echo 07/30/24: EF 40%, base to mid inferolateral, basal to mid inferoseptal and basal inferior munguia hypokinetic, mild concentric LVH, mild MR, mild TR, PAP 45 to 50 mmHg
Catheterization 07/31/2024: Nonobstructive CAD, LVEDP 40
Plan:
He continues to do very well.
Weight today is 261 pounds on standing scale which is 21 pounds less than admission but prior weights were on bed scale
Will continue IV Lasix given markedly elevated EDP on 07/31
Continue to try and wean oxygen
Continue Coreg, Farxiga and lisinopril and will add Aldactone
He is urged to stop drinking alcohol as the likely cause of his cardiomyopathy
Continue to watch for DTs
Discussed with nursing and at bedside as well as primary service
PREADMIT DATA:
-Patient came to [facility] today after losing consciousness at home and cardiology is consulted for complete heart block. Patient lives at home with his . Patient saw cardiology in 2010 for preoperative evaluation for possible anal cancer and he had
resection at [facility] and it ended up being benign tissue. Patient never followed up with cardiology again and last saw his PCP in 2016. Patient reports he has been homebound since about 2019. Patient's reports that patient has had visibly increased
ALCALA for the last month. Patient told his that he passed out yesterday, but awoke on his own and went to bed and took a nap. Details of yesterday's syncope are not clear and patient has severe ETOH use disorder. Patient then had an episode today
where he was unresponsive and flailing his arms so his called 911. When EMS arrived the patient was able to ambulate downstairs and in the ambulance he was found to be in complete heart block and was given droperidol 1.25 mg IV x1 plus Zofran 4
mg IV x1. In [facility] patient was given Zofran atropine 0.5 mg IV x1. Patient noted to have leukocytosis with left shift, but no fever. He has malodorous LEs, but no obvious wounds.
Progress Note - Web Software Engineer
Subjective
Date of Service: August 02, 2024
No complaints
Objective
Labs:
08/02/24 04:44
08/02/24 04:44
Labs
Hgb 12.8 g/dL (13.0-18.0) L 08/02/24 04:44
Hct 37.2 % (39.0-52.0) L 08/02/24 04:44
Plt Count 150 10^3/uL (130-400) 08/02/24 04:44
PT 17.0 Sec (11.4-14.6) H 07/30/24 18:34
INR 1.38 07/30/24 18:34
APTT 30.1 Sec (23.4-35.0) 07/30/24 18:34
Sodium 141 mmol/L (135-145) 08/02/24 04:44
Potassium 3.3 mmol/L (3.5-5.1) L 08/02/24 04:44
BUN 12 mg/dl (9-20) 08/02/24 04:44
Creatinine 0.7 mg/dL (0.7-1.3) 08/02/24 04:44
Glucose 91 mg/dl (70-99) 08/02/24 04:44
Troponins
07/31/24 07/31/24 07/31/24
08:12 16:03 20:24
Troponin I 0.322 H* 0.732 H* D 0.579 H*
08/01/24
05:08
Troponin I 0.265 H*
Vital Signs and I&O:
Vital Signs
Temp Pulse Resp BP Pulse Ox
97.8 F 63 20 148/97 95
08/02/24 07:57 08/02/24 07:57 08/02/24 07:57 08/02/24 07:57 08/02/24 07:57
Vital Signs
Temp Pulse Resp BP Pulse Ox
97.8 F 63 20 148/97 95
08/02/24 07:57 08/02/24 07:57 08/02/24 07:57 08/02/24 07:57 08/02/24 07:57
Intake & Output
07/31/24 08/01/24 08/02/24 08/03/24
06:59 06:59 06:59 06:59
Intake Total 1860 / 1960 500 / 500 720 / 720
Output Total 220 / 220 3900 / 3900 4275 / 4275
Balance 1640 / 1740 -3400 / -3400 -3555 / -3555
Physical Exam
Physical Exam
General: Well developed, well nourished in NAD.
Neck: Supple, no JVD, HJR, carotids +2 B/L, no bruits bilaterally.
Heart: Non displaced PMI, RRR, no murmurs, No S3, S4, no rubs.
Lungs: Scattered rhonchi
Left pacer dressings noted
Extremities: No clubbing, cyanosis or edema bilaterally.
Neuro: Grossly nonfocal, awake, alert and oriented x3.
[2024-08-02] MEDS: MIRALAX 17 GRAMS PO (11:15)
[2024-08-02] MEDS: ALDACTONE 12.5 MG PO (11:15)
--- NOTE | 2024-08-02 15:58 | W.PN.UPDATE ---
Update Note
Progress Note Update
Called by nurses for intermittent non-capture.
Pacer interrogated. RV threshold about 3.5 V which was programmed output. Output increase to 8 V.
CXR and EKG ordered.
Dr. Chahal and Dr. Mckinney updated.
Pt made NPO after MN for likely lead revision tomorrow.
30 min spent caring for patient outside of time performing pacer interrogation/reprogramming.
Lead is acutely dislodged by CXR. It is currently capturing. Will have pacing pads placed.
MD Deep
--- NOTE | 2024-08-02 16:23 | CHAP ---
Visited Magnus at 11:55. He was awake and said he's grateful for the good care he is receiving. Emotional and spiritual support provided.
[2024-08-02] MEDS: DESENEX/MITRAZOL/ZEASORB 1 APPLIC TOPICAL ×2 (16:34→20:15)
--- NOTE | 2024-08-02 16:54 | PTCARENOTE ---
08/02/24 9905 Pt's equipment monitor phototypesetting was alarming HR 30-40's, Pt with a DDD pacemaker in place. Dr. Adame on unit, he reviewed the strips. Dr Chahal was notified via tiger text. Dr Adame used the [employer] device to evaluate the pacemaker (quick
look). An EKG and Portable CXR was done. In reviewing films it seems the Ventricle lead has dislodged. Cardiology/EPS all aware. Pt asymptomatic. Pt resting comfortably in bed, VSS. Pt on 1L NC @99%. Pacer pads at bedside. Pt NPO after midnight for
a lead revision in AM.
[2024-08-02] MEDS: LOVENOX SC (17:46)
[2024-08-02] MEDS: VITAMIN B1 100 MG PO (20:15)
[2024-08-03] VITALS (11 sets, daily range): BP systolic 108–146; BP diastolic 62–102; BMI 34.8
--- NOTE | 2024-08-03 04:58 | PTCARENOTE ---
Pt VSS, Vpaced with occasional AV paced on monitor. Denies pain or discomfort. NPO after midnight. Pt resting comfortable in the bed. safety measures in place
[2024-08-03 05:27] LABS: Albumin 2.8 g/dl (3.5-5.0); Blood Urea Nitrogen 11 mg/dl (9-20); Calcium 8.5 mg/dl (8.4-10.2); Carbon Dioxide 29 mmol/L (22-30); Chloride 101 mmol/L (98-107); Estimated Creatinine Clearance > 125 ml/min; Glucose 109 mg/dl (70-99); Phosphorus 2.9 mg/dl (2.5-4.5); Potassium 3.2 mmol/L (3.5-5.1); Sodium 140 mmol/L (135-145); eGFR > 60.00
[2024-08-03] MEDS: KCL 40 MEQ PO ×2 (06:24→20:57)
[2024-08-03] MEDS: KCL 20 MEQ PO (08:17)
[2024-08-03] MEDS: ZESTRIL 5 MG PO (08:19)
[2024-08-03] MEDS: COREG 3.125 MG PO ×2 (08:19→19:25)
[2024-08-03] MEDS: DESENEX/MITRAZOL/ZEASORB 1 APPLIC TOPICAL ×2 (08:20→19:26)
[2024-08-03] MEDS: LASIX 40 MG IV ×2 (08:20→16:56)
[2024-08-03] MEDS: ALDACTONE 12.5 MG PO (08:20)
--- NOTE | 2024-08-03 08:49 | W.PN.HOSP.TC ---
Today's Communication/Plan
-
Continue IV Lasix
Lead revision took place today
Assessment / Plan
Assessment / Plan
Gen-AAOx3, NAD, obese
HEENT-NC, AT, anicteric, clear oral mm
Neck-supple
CV-reg, no M, +S1/S2
Lungs-clear B/L
Abd-soft, NT, ND
Ext-bilateral lower extremity lymphedema, right greater than left.
Musculoskeletal-no cyanosis, clubbing
Skin-warm and dry
Neuro-grossly non-focal
Psych-calm, cooperative
68-year-old male presented with syncope/seizure, felt to be due to complete heart block. Cardiac cath with nonobstructive disease. Pacemaker placed. Also with alcohol use disorder. Has not seen a physician in many years.
Acute hypoxic respiratory insufficiency -currently requiring 2 L of nasal cannula oxygen. Wean oxygen down as able. Etiology of respiratory insufficiency most likely due to pulmonary edema due to acute heart failure. Doubt pneumonia clinically.
Acute heart failure with reduced EF exacerbation/nonischemic cardiomyopathy -new diagnosis. Presumed alcohol induced cardiomyopathy given heavy alcohol abuse history. Echocardiogram shows LVEF 40% with hypokinesis noted. Cardiac catheterization
with nonobstructive coronary disease. Continue IV Lasix per cardiology. BNP 6060.
Lower extremity edema improving, I's and O's are negative.
Hypokalemia -magnesium normal. Replete orally.
Complete heart block -presentation with syncope, seizure. TSH 3.47. Dual-chamber permanent pacemaker placed 07/31/24, followed by extraction of failed/dislodged right ventricular pacing lead and implantation of new RV pacing lead utilizing Left
Bundle Branch conduction system capture for pacing performed on 08/03/24
New onset seizures -differential diagnosis includes complete heart block versus alcohol related seizure versus other causes. Denies history of seizures. CT head without acute disease. No indication for antiepileptics currently. If seizures recur
will consult neurology.
Transient leukocytosis -doubt infection. Suspect leukemoid reaction due to presentation with syncope, seizure, complete heart block. Looks nontoxic. Afebrile.
Bilateral pleural effusions -chest x-ray shows small to moderate right effusion, small left effusion. Patchy parenchymal opacity in the left lower lung most likely atelectasis. Right lower lung atelectasis. Denies significant pulmonary symptoms.
Etiology of pleural effusions presumed to be due to heart failure. Albumin noted to be 2.9.
Troponin elevation -suspect acute nonischemic myocardial injury related to multiple factors including complete heart block, CHF, etc. Troponin trending down.
Chronic lower extremity lymphedema -has not been addressed as an outpatient. Does not have a physician. Recommend outpatient follow-up with lymphedema clinic in [place].
Severe alcohol use disorder -reportedly last drink was July 29. Monitor for alcohol withdrawal syndrome. Continue thiamine, folic acid. Denies history of alcohol withdrawal in the past. Patient interested in quitting. Has not required any
lorazepam over the past 48 hours.
Left bundle branch block
Aortic dilation
Essential hypertension -not on medications at home. Blood pressure stable here. Monitor for now.
Obesity due to excess calories
Full code
PT/OT
updated at the bedside.
Anticipated Discharge: 24 - 48 hours
Subjective/Interval History
-
Date of Service: August 03, 2024
Patient was seen and examined. He denied any chest pain or any other complaints.
Objective Data
-
Labs:
Laboratory Results
08/03/24
04:15
Sodium 140
Potassium 3.2 L
Chloride 101
Carbon Dioxide 29
BUN 11
Creatinine 0.6 L
Glucose 109 H
Calcium 8.5
Vital Signs:
Vital Signs
Temp Pulse Resp BP Pulse Ox
98.1 F 61 20 140/71 95
08/03/24 07:02 08/03/24 07:04 08/03/24 07:02 08/03/24 07:04 08/03/24 07:04
I&O
08/02/24 08/03/24 08/04/24
06:59 06:59 06:59
Intake Total 720 / 720 200 / 200
Output Total 4275 / 4275 3950 / 3950
Balance -3555 / -3555 -3750 / -3750
--- NOTE | 2024-08-03 09:59 | W.PN.CARDCBS ---
Today's Communication / Plan
-
He remains on oxygen.
Check right heart cath at time of lead revision later today
Continue IV Lasix for now
Impression / Plan
-
PCP: None
Cardiology: Dr. Bartlett, last seen 2010
Impression:
Loss of consciousness 07/30/24
Seizure activity
Complete heart block status post permanent pacemaker 07/31/2024
Loss of ventricular capture with lead dislodgment 08/02/2024
Nonischemic myocardial injury
Cardiomyopathy, nonischemic, EF 40%
h/o cLBBB
Syncope
Severe ETOH use disorder
Marijuana smoker
Hyperglycemia without h/o DM
Echo 12/20/10: EF 50 to 55% without clear wall motion abnormality, mild MR, normal RV size and function, dilated aortic root measuring 4.1 cm
Echo 07/30/24: EF 40%, base to mid inferolateral, basal to mid inferoseptal and basal inferior munguia hypokinetic, mild concentric LVH, mild MR, mild TR, PAP 45 to 50 mmHg
Catheterization 07/31/2024: Nonobstructive CAD, LVEDP 40
Plan:
Noted to have lead dislodgment on 08/02/2024
Now capturing on much higher threshold
For lead revision later today
He continues to diurese and weight is down 5 pounds in the past 24 hours and possibly as much as 21 pounds since admission.
He remains on oxygen.
Will check right heart catheterization at the time of pacemaker revision later today
Will continue IV Lasix given markedly elevated EDP on 07/31
Continue to try and wean oxygen
Continue Coreg, Farxiga, lisinopril and Aldactone
He is urged to stop drinking alcohol as the likely cause of his cardiomyopathy
Continue to watch for DTs
Discussed with nursing and at bedside as well as primary service
PREADMIT DATA:
-[facility] today after losing consciousness at home and cardiology is consulted for complete heart block. Patient lives at home with his . Patient saw cardiology in 2010 for preoperative evaluation for possible anal cancer and he had
resection at [facility] and it ended up being benign tissue. Patient never followed up with cardiology again and last saw his PCP in 2016. Patient reports he has been homebound since about 2019. Patient's reports that patient has had visibly increased
ALCALA for the last month. Patient told his that he passed out yesterday, but awoke on his own and went to bed and took a nap. Details of yesterday's syncope are not clear and patient has severe ETOH use disorder. Patient then had an episode today
where he was unresponsive and flailing his arms so his called 911. When EMS arrived the patient was able to ambulate downstairs and in the ambulance he was found to be in complete heart block and was given droperidol 1.25 mg IV x1 plus Zofran 4
mg IV x1. In [facility] patient was given Zofran atropine 0.5 mg IV x1. Patient noted to have leukocytosis with left shift, but no fever. He has malodorous LEs, but no obvious wounds.
Progress Note - Returned Case Inspector
Subjective
Date of Service: August 03, 2024
No complaints
Objective
Labs:
08/02/24 04:44
08/03/24 04:15
Labs
Hgb 12.8 g/dL (13.0-18.0) L 08/02/24 04:44
Hct 37.2 % (39.0-52.0) L 08/02/24 04:44
Plt Count 150 10^3/uL (130-400) 08/02/24 04:44
PT 17.0 Sec (11.4-14.6) H 07/30/24 18:34
INR 1.38 07/30/24 18:34
APTT 30.1 Sec (23.4-35.0) 07/30/24 18:34
Sodium 140 mmol/L (135-145) 08/03/24 04:15
Potassium 3.2 mmol/L (3.5-5.1) L 08/03/24 04:15
BUN 11 mg/dl (9-20) 08/03/24 04:15
Creatinine 0.6 mg/dL (0.7-1.3) L 08/03/24 04:15
Glucose 109 mg/dl (70-99) H 08/03/24 04:15
Troponins
07/31/24 07/31/24 08/01/24
16:03 20:24 05:08
Troponin I 0.732 H* D 0.579 H* 0.265 H*
Vital Signs and I&O:
Vital Signs
Temp Pulse Resp BP Pulse Ox
98.1 F 61 20 140/71 96
08/03/24 07:02 08/03/24 07:04 08/03/24 07:02 08/03/24 07:04 08/03/24 09:29
Vital Signs
Temp Pulse Resp BP Pulse Ox
98.1 F 61 20 140/71 96
08/03/24 07:02 08/03/24 07:04 08/03/24 07:02 08/03/24 07:04 08/03/24 09:29
Intake & Output
08/01/24 08/02/24 08/03/24 08/04/24
06:59 06:59 06:59 06:59
Intake Total 500 / 500 720 / 720 200 / 200
Output Total 3900 / 3900 4275 / 4275 3950 / 3950
Balance -3400 / -3400 -3555 / -3555 -3750 / -3750
Physical Exam
Physical Exam
General: Well developed, well nourished in NAD.
Neck: Supple, no JVD, HJR, carotids +2 B/L, no bruits bilaterally.
Heart: Non displaced PMI, RRR, no murmurs, No S3, S4, no rubs.
Lungs: Scattered rhonchi
Extremities: No clubbing, cyanosis or edema bilaterally.
Neuro: Grossly nonfocal, awake, alert and oriented x3.
[2024-08-03] MEDS: VITAMIN B1 PO (11:00)
--- NOTE | 2024-08-03 13:25 | PTCARENOTE ---
Assumed care of the patient at 1100, patient resting in bed, at the bedside. Patient NPO for pacemaker lead revision. Complete bed bath given to the patient, aquacel in place left upper chest with scant old drainage. CHG wipes done, report
given to the EP lab. Patient taken for procedure.
--- NOTE | 2024-08-03 14:22 | ITS.CL.PACE ---
Electrical Logger - Pacemaker Implant
Pacemaker Implant
Procedure Report:
PACEMAKER IMPLANT REPORT
Primary vegetable farm manager: Dr Eddi Kyle
Date of Procedure: 08/03/24
Procedure:
Extraction of dislodged/failed right ventricular pacing lead
Implantation of new right ventricular pacing lead utilizing the left bundle branch for conduction system pacing
Indication/Diagnosis:
Non-reversible symptomatic bradycardia due to third degree atrioventricular block
HISTORY:
Patient is a 68-year-old male with a past medical history significant for alcohol use disorder, hyperglycemia without diabetes, who presented with complete heart block following seizure activity/syncope at home. Patient noted on echocardiography
LVEF of 40% with wall motion abnormality. Patient underwent left heart catheterization which demonstrated nonobstructive coronary artery disease. Due to symptomatic complete heart block, patient undergo implantation of dual-chamber pacemaker on
07/31/24 with use of Medtronic 3830 ventricular pacing lead for left bundle branch conduction system pacing. The right ventricular pacing lead has since dislodged and he presents today for evaluation for repositioning or replacement of the dislodged
RV pacing lead.
After informed consent was obtained, 'time out' was called and confirmed, the patient was prepped and draped in a sterile fashion. Lidocaine with epi was used for local anesthesia. An incision was made along the left chest and a pre-pectoral
pocket was formed. The generator and leads were carefully dissected from the pocket. Today he has no escape rhythm in the dislodged ventricular lead is capturing RV even though it is dislodged from its original implantation site. New central
venous access was obtained via subclavian venipuncture. Using a Seldinger technique and peel-away sheath, the new pacing lead was placed under fluoroscopic guidance.
Fluoroscopy was used to determine likely anatomic site for left bundle branch pacing. The Uepaatronic C315 sheath was used to deliver the Medtronic 3830 Selectsecure pacing lead with the helix exposed just exposed from the sheath tip during continuous
monitoring when pacemapping the septum during gentle clockwise rotation to obtain a paced QRS morphology of a W pattern in lead V1. Once the suspected optimal site was identified, lead deployment was performed with several rapid rotations as paced
QRS morphology was intermittently monitored until a paced QRS complex in lead V1 demonstrated development of an R wave (qR).
Unipolar pacing impedance dropped by approximately 100 ohms suggesting it had reached the left ventricular subendocardial.
Stable VEgm injury current is present throughout lead positioning and at end of case. suggesting there was no perforation through the septum into the LV cavity.
Final unipolar pacing impedance is 1000 Ohms
Unipolar pacing threshold is stable at 1.5 V @ 0.4 ms.
Once this lead was secured using the suture sleeves, the dislodged/failed RV pacing lead was from the device header and in its place was positioned in the new RV pacing lead which was connected to the generator using the device wrench.
Next the suture sleeve for the failed lead was severed using a scalpel. With gentle tension, the lead was removed from its attachment to the myocardium and removed from the vasculature. Pressure was applied to its entry site for hemostasis.
The pocket was liberally irrigated with antibiotic solution. The leads were connected to the generator header and the leads and generator were placed within the pocket. Antibiotic pouch was used. Fluoroscopy confirmed stable lead position. The
pocket was closed in the typical fashion.
Fluoroscopy was used to guide lead placement.
EXTRACTED:
Medtronic 3830 serial # [id number]
IMPLANT:
Medtronic 3830 serial # [id number], Interventricular septum at LBB
RETAINED:
Medtronic [id number], SN: [id number], Left Pectoral
RA: Medtronic 5076-45, SN: [id number], RAA
DEVICE TESTING:
Sensing: RA 1 mV, RV 8 mV
Capture: RA 1.25 V@0.4ms, RV 1.25 V@0.4ms
Ohms: RA 540 , RV 912 (bipolar)
FINAL PROGRAMMING
Yoseph Pacing: DDDR 60-130 ppm
COMPLICATIONS:
None
CONCLUSIONS:
Extraction of failed/dislodged right ventricular pacing lead
Implantation of new RV pacing lead utilizing Left Bundle Branch conduction system capture for pacing.
RECOMMENDATIONS:
1. Post-op care (tele, CXR, IV abx)
2. In-Office wound check in 5-7 days
Copy to:
Dr Eddi Kyle
Dr Waldemar Mckinney
--- NOTE | 2024-08-03 15:52 | PTCARENOTE ---
Received patient from EP lab after pacemaker V lead revision. Patient is very sleepy but arouses to name, pulse ox on RA 90%, placed on 2L NC with pulse ox of 94%. Pressure dressing in place left upper chest which is dry and intact. Sling LUE in
place. Monitoring post op VS as ordered, at the bedside, call muse in reach.
[2024-08-03] MEDS: FOLVITE 1 MG PO (16:56)
[2024-08-03] MEDS: FLUSH (NSS) 3 FLUSH IV (16:57)
[2024-08-03] MEDS: MIRALAX PO (16:58)
--- NOTE | 2024-08-03 17:27 | CM ---
priced jardiance and entresto with pts perscript plan- both are $47/month
[2024-08-03] MEDS: ANCEF 5 IV (19:25)
[2024-08-03] MEDS: VITAMIN B1 100 MG PO (19:25)
[2024-08-03 20:24] LABS: Blood Urea Nitrogen 12 mg/dl (9-20); Calcium 8.7 mg/dl (8.4-10.2); Carbon Dioxide 33 mmol/L (22-30); Chloride 97 mmol/L (98-107); Estimated Creatinine Clearance > 125 ml/min; Glucose 110 mg/dl (70-99); Potassium 3.3 mmol/L (3.5-5.1); Sodium 141 mmol/L (135-145); eGFR > 60.00
--- NOTE | 2024-08-03 23:18 | PTCARENOTE ---
Pt 88% on RA while he's asleep. Placed on 2L and PlOx improved to 93-94%
[2024-08-04] VITALS (10 sets, daily range): BP systolic 129–153; BP diastolic 64–84; PULSE 65–67; O2SAT 94; BMI 34.2
[2024-08-04] MEDS: ANCEF 5 IV (04:01)
[2024-08-04 04:44] LABS: Hematocrit 34.6 % (39.0-52.0); Hemoglobin 12.1 g/dL (13.0-18.0); Mean Corpuscular Volume 94.3 fL (80.0-94.0); Mean Platelet Volume 11.5 fL (7.4-10.4); Platelet Count 154 10^3/uL (130-400); Red Blood Cell Count 3.67 10^6/uL (4.70-6.10); Red Cell Dist. Width 14.5 % (11.5-14.5); White Blood Cell Count 9.2 10^3/uL (4.8-10.8)
[2024-08-04 04:48] LABS: Albumin 2.9 g/dl (3.5-5.0); Blood Urea Nitrogen 14 mg/dl (9-20); Calcium 8.5 mg/dl (8.4-10.2); Carbon Dioxide 34 mmol/L (22-30); Chloride 101 mmol/L (98-107); Estimated Creatinine Clearance > 125 ml/min; Glucose 103 mg/dl (70-99); Phosphorus 2.9 mg/dl (2.5-4.5); Potassium 3.8 mmol/L (3.5-5.1); Sodium 140 mmol/L (135-145); eGFR > 60.00
[2024-08-04] MEDS: ALDACTONE 12.5 MG PO (08:41)
[2024-08-04] MEDS: COREG 3.125 MG PO (08:42)
[2024-08-04] MEDS: LASIX 40 MG IV ×2 (08:43→15:41)
[2024-08-04] MEDS: VITAMIN B1 100 MG PO ×2 (08:43→19:42)
[2024-08-04] MEDS: FOLVITE 1 MG PO (08:43)
[2024-08-04] MEDS: ZESTRIL 5 MG PO (08:43)
[2024-08-04] MEDS: KCL 20 MEQ PO (08:43)
--- NOTE | 2024-08-04 08:58 | W.PN.CARDCBS ---
Addendum entered and electronically signed by Julio Chahal MD 08/04/24 10:08:
I saw and examined the patient.
The COMMUNITY HEALTH NAVIGATOR or PA's note was reviewed and I agree with the note.
Comment: General: Well developed, well nourished in NAD.
Neck: Supple, no JVD, HJR, carotids +2 B/L, no bruits bilaterally.
Heart: Non displaced PMI, RRR, no murmurs, No S3, S4, no rubs.
Lungs: Scattered rhonchi at the bases
Extremities: No clubbing, cyanosis or edema bilaterally.
Neuro: Grossly nonfocal, awake, alert and oriented x3.
He continues to do well. Will continue IV Lasix and try to wean oxygen today. Will increase activity. Will add Farxiga. Discussed with patient and at bedside.
Original Note:
Today's Communication / Plan
-
continue IV lasix
add farxiga. increase coreg
wean supp O2
ambulate
continue LUE restrictions
Impression / Plan
-
PCP: None
Cardiology: Dr. Bartlett, last seen 2010
Impression:
Loss of consciousness 07/30/24
Seizure activity
Complete heart block status post permanent pacemaker 07/31/2024
Loss of ventricular capture with lead dislodgment 08/02/2024 s/p RV lead revision 08/03/24
Nonischemic myocardial injury
Cardiomyopathy, nonischemic, EF 40%
h/o cLBBB
Syncope
Severe ETOH use disorder
Marijuana smoker
Hyperglycemia without h/o DM
Echo 12/20/10: EF 50 to 55% without clear wall motion abnormality, mild MR, normal RV size and function, dilated aortic root measuring 4.1 cm
Echo 07/30/24: EF 40%, base to mid inferolateral, basal to mid inferoseptal and basal inferior munguia hypokinetic, mild concentric LVH, mild MR, mild TR, PAP 45 to 50 mmHg
Catheterization 07/31/2024: Nonobstructive CAD, LVEDP 40
Plan:
-He presented with unresponsive episode with concern for seizure activity. Noted to have complete heart block by EKG
-Echocardiogram with EF 40% and wall motion abnormalities with peak troponin of 0.7
-Underwent cardiac catheterization 08/18 with nonobstructive CAD and elevated LVEDP
-Underwent pacemaker placement 07/31/2024. Then noted to have lead dislodgment on 08/02/2024. status post RV lead revision 08/03/2024
-av paced rhythm on review of EKG this AM
-Reviewed activity restrictions. Continue sling for now. Leave pressure dressing until this afternoon
-Continues to diurese. With negative 3L I&O overnight. Continue IV Lasix. Creatinine remains stable
-Wean supplemental oxygen
-CHF education
-Continue guideline directed medical therapy for NICM with Coreg, lisinopril, Aldactone. add farxiga and increase coreg dose to 6.25mg BID
-ETOH cessation
-ambulate as able
-d/w nursing
PREADMIT DATA:
-Patient came to [facility] today after losing consciousness at home and cardiology is consulted for complete heart block. Patient lives at home with his . Patient saw cardiology in 2010 for preoperative evaluation for possible anal cancer and he had
resection at [facility] and it ended up being benign tissue. Patient never followed up with cardiology again and last saw his PCP in 2016. Patient reports he has been homebound since about 2019. Patient's reports that patient has had visibly increased
ALCALA for the last month. Patient told his that he passed out yesterday, but awoke on his own and went to bed and took a nap. Details of yesterday's syncope are not clear and patient has severe ETOH use disorder. Patient then had an episode today
where he was unresponsive and flailing his arms so his called 911. When EMS arrived the patient was able to ambulate downstairs and in the ambulance he was found to be in complete heart block and was given droperidol 1.25 mg IV x1 plus Zofran 4
mg IV x1. In [facility] patient was given Zofran atropine 0.5 mg IV x1. Patient noted to have leukocytosis with left shift, but no fever. He has malodorous LEs, but no obvious wounds.
Progress Note - Cartoon Designer
Subjective
Date of Service: August 04, 2024
patient reports diuresing well, with some terrence-incisional pain.
Objective
Labs:
08/04/24 04:14
08/04/24 04:14
Labs
Hgb 12.1 g/dL (13.0-18.0) L 08/04/24 04:14
Hct 34.6 % (39.0-52.0) L 08/04/24 04:14
Plt Count 154 10^3/uL (130-400) 08/04/24 04:14
PT 17.0 Sec (11.4-14.6) H 07/30/24 18:34
INR 1.38 07/30/24 18:34
APTT 30.1 Sec (23.4-35.0) 07/30/24 18:34
Sodium 140 mmol/L (135-145) 08/04/24 04:14
Potassium 3.8 mmol/L (3.5-5.1) 08/04/24 04:14
BUN 14 mg/dl (9-20) 08/04/24 04:14
Creatinine 0.7 mg/dL (0.7-1.3) 08/04/24 04:14
Glucose 103 mg/dl (70-99) H 08/04/24 04:14
Vital Signs and I&O:
Vital Signs
Temp Pulse Resp BP Pulse Ox
99 F 65 18 158/78 99
08/04/24 08:31 08/04/24 08:41 08/04/24 08:31 08/04/24 08:41 08/04/24 08:31
Vital Signs
Temp Pulse Resp BP Pulse Ox
99 F 65 18 158/78 99
08/04/24 08:31 08/04/24 08:41 08/04/24 08:31 08/04/24 08:41 08/04/24 08:31
Intake & Output
08/02/24 08/03/24 08/04/24 08/05/24
07:59 07:59 07:59 07:59
Intake Total 720 / 720 200 / 200 360 / 360
Output Total 4275 / 4275 3950 / 3950 3450 / 3450
Balance -3555 / -3555 -3750 / -3750 -3090 / -3090
Physical Exam
Physical Exam
GEN: No distress, awake, alert, oriented x3. on supp O2
HEENT: supple, anicteric, mmm, eomi
LUNGS: Crackles B/L bases, no wheezes
CV: Reg, S1/S2, no murmur
ABD: soft, BS+, NT/ND
EXT: No cyanosis, clubbing. 1+ edema of B/L LE
NEURO: Gross non-focal
SKIN: Warm, pink, dry. No rash. pressure dressing in place L chest.
[2024-08-04] MEDS: MIRALAX PO (09:04)
--- NOTE | 2024-08-04 09:11 | PTCARENOTE ---
Received patient at shift change. AV paced on the monitor, HR in the 60s. L chest dressing CDI, some ecchymosis on surrounding skin. L sling in place. 97% on room air. No complaints from pt at this time. Call muse within reach.
--- NOTE | 2024-08-04 09:20 | PTCARENOTE ---
Received patient at shift change. AV paced on the monitor, HR in the 60s. L chest dressing CDI, some ecchymosis on surrounding skin. L sling in place. 97% on 2L nasal cannula. No complaints from pt at this time. Call muse within reach.
[2024-08-04] MEDS: FARXIGA 10 MG PO (09:41)
[2024-08-04] MEDS: DESENEX/MITRAZOL/ZEASORB 1 APPLIC TOPICAL ×2 (09:41→19:44)
--- NOTE | 2024-08-04 15:15 | CM ---
spoke to pt and , they are aware that they need to make an appt with the PCP (so they can sign the VN Order) first in order for [facility] Visiting nurse to see him. they said they would follow up.
--- NOTE | 2024-08-04 18:02 | PTCARENOTE ---
Patient complaining of his back itching. Red raised pimple like rash noted throughout his back, no other areas seen. Patient sitting oob in the chair, diaphoretic, patient washed and linens changed, back massage given with some relief. Tt to
[place] (cross coverage) and ointment ordered as per JAN.
--- NOTE | 2024-08-04 18:25 | W.PN.HOSP.TC ---
Today's Communication/Plan
-
Continue IV Lasix
Assessment / Plan
Assessment / Plan
Gen-AAOx3, NAD, obese
HEENT-NC, AT, anicteric, clear oral mm
Neck-supple
CV-reg, no M, +S1/S2
Lungs-clear B/L
Abd-soft, NT, ND
Ext-bilateral lower extremity lymphedema, right greater than left.
Musculoskeletal-no cyanosis, clubbing
Skin-warm and dry
Neuro-grossly non-focal
Psych-calm, cooperative
68-year-old male presented with syncope/seizure, felt to be due to complete heart block. Cardiac cath with nonobstructive disease. Pacemaker placed. Also with alcohol use disorder. Has not seen a physician in many years.
Acute hypoxic respiratory insufficiency -now on room air. but previously required 2 L of nasal cannula oxygen. Wean oxygen down as able. Etiology of respiratory insufficiency most likely due to pulmonary edema due to acute heart failure. Doubt
pneumonia clinically.
Nocturnal Hypoxia -- will consider pulmonary consultation
Acute heart failure with reduced EF exacerbation/nonischemic cardiomyopathy -new diagnosis. Presumed alcohol induced cardiomyopathy given heavy alcohol abuse history. Echocardiogram shows LVEF 40% with hypokinesis noted. Cardiac catheterization
with nonobstructive coronary disease. Continue IV Lasix per cardiology. BNP 6060.
Lower extremity edema improving, I's and O's are negative.
Hypokalemia -magnesium normal. Replete orally.
Complete heart block -presentation with syncope, seizure. TSH 3.47. Dual-chamber permanent pacemaker placed 07/31/24, followed by extraction of failed/dislodged right ventricular pacing lead and implantation of new RV pacing lead utilizing Left
Bundle Branch conduction system capture for pacing performed on 08/03/24
New onset seizures -differential diagnosis includes complete heart block versus alcohol related seizure versus other causes. Denies history of seizures. CT head without acute disease. No indication for antiepileptics currently. Will consider
neurology consult.
Transient leukocytosis -doubt infection. Suspect leukemoid reaction due to presentation with syncope, seizure, complete heart block. Looks nontoxic. Afebrile.
Bilateral pleural effusions -chest x-ray shows small to moderate right effusion, small left effusion. Patchy parenchymal opacity in the left lower lung most likely atelectasis. Right lower lung atelectasis. Denies significant pulmonary symptoms.
Etiology of pleural effusions presumed to be due to heart failure. Albumin noted to be 2.9.
Troponin elevation -suspect acute nonischemic myocardial injury related to multiple factors including complete heart block, CHF, etc. Troponin trending down.
Chronic lower extremity lymphedema -has not been addressed as an outpatient. Does not have a physician. Recommend outpatient follow-up with lymphedema clinic in [place].
Severe alcohol use disorder -reportedly last drink was July 29. Monitor for alcohol withdrawal syndrome. Continue thiamine, folic acid. Denies history of alcohol withdrawal in the past. Patient interested in quitting. Has not required any
lorazepam over the past 48 hours.
Left bundle branch block
Aortic dilation
Essential hypertension -not on medications at home. Blood pressure stable here. Monitor for now.
Obesity due to excess calories
Full code
PT/OT
updated at the bedside.
Anticipated Discharge: 24 - 48 hours
Subjective/Interval History
-
Date of Service: August 04, 2024
Patient was seen and examined. He reported no new symptoms or complaints.
Objective Data
-
Vital Signs:
Vital Signs
Temp Pulse Resp BP Pulse Ox
98.2 F 60 16 138/71 96
08/04/24 15:24 08/04/24 16:00 08/04/24 15:24 08/04/24 15:41 08/04/24 15:24
I&O
08/03/24 08/04/24 08/05/24
06:59 06:59 06:59
Intake Total 200 / 200 360 / 360
Output Total 3950 / 3950 3450 / 3450 1999
Balance -3750 / -3750 -3090 / -3090 -1999 /
--- NOTE | 2024-08-04 19:24 | PTCARENOTE ---
Pt. received at change of shift. Pt. seen and assessed in room with at bedside. Pt. AOx3, VS WNL. No complaints at this time. Continuing to monitor the patient.
[2024-08-04] MEDS: COREG 6.25 MG PO (19:42)
[2024-08-04] MEDS: TRIAMCINOLONE 0.1% OINTMENT 1 APPLIC TOPICAL (22:18)
[2024-08-05 04:13] VITALS: BP 160/82
[2024-08-05 04:21] VITALS: BMI 34.1
[2024-08-05 04:55] LABS: Blood Urea Nitrogen 15 mg/dl (9-20); Calcium 8.4 mg/dl (8.4-10.2); Carbon Dioxide 32 mmol/L (22-30); Chloride 100 mmol/L (98-107); Estimated Creatinine Clearance > 125 ml/min; Glucose 107 mg/dl (70-99); Magnesium 1.7 mg/dl (1.6-2.3); Potassium 3.5 mmol/L (3.5-5.1); Sodium 139 mmol/L (135-145); eGFR > 60.00
[2024-08-05 07:53] VITALS: BP 156/82
[2024-08-05] MEDS: COREG 6.25 MG PO ×2 (08:46→20:00)
[2024-08-05] MEDS: FOLVITE 1 MG PO (08:47)
[2024-08-05] MEDS: ALDACTONE 12.5 MG PO (08:47)
[2024-08-05] MEDS: FARXIGA 10 MG PO (08:47)
[2024-08-05] MEDS: LASIX 40 MG IV ×2 (08:48→15:39)
[2024-08-05] MEDS: FLUSH (NSS) 2 FLUSH IV (08:48)
[2024-08-05] MEDS: DESENEX/MITRAZOL/ZEASORB 1 APPLIC TOPICAL ×2 (08:48→20:01)
[2024-08-05] MEDS: KCL 20 MEQ PO (08:48)
[2024-08-05] MEDS: MIRALAX 17 GRAMS PO (08:49)
[2024-08-05] MEDS: TRIAMCINOLONE 0.1% OINTMENT 1 APPLIC TOPICAL ×3 (08:49→22:49)
[2024-08-05] MEDS: VITAMIN B1 100 MG PO ×2 (08:50→20:01)
[2024-08-05] MEDS: ZESTRIL 5 MG PO ×2 (08:50→11:07)
--- NOTE | 2024-08-05 09:20 | PTCARENOTE ---
Received patient this morning resting in bed, dressing left upper chest is dry and intact, offers no complaints. at the bedside, call muse in reach.
--- NOTE | 2024-08-05 09:28 | CON.NEURO4 ---
Addendum entered and electronically signed by Judith Saenz DO 08/05/24 17:10:
Studies reviewed.
I have personally examined the patient. I agree with the CITY COUNCILMAN's Note.
My addenda:
68 year-old male with an episode of LOC with shaking. Immediately back to his baseline mental status.
Exam is unremarkable.
Agree that this was likely convulsive syncope in the setting of complete heart block/bradycardia.
Does have a history of multiple episodes of head trauma with LOC as well as chronic ETOH use (with recent reduction of use by ~4 beers per day) which are seizure risk factors.
Agree that no further testing is needed at this time.
If he has another event despite pacer placement, would check an EEG and MRI brain w/wo contrast.
Neurology will sign off. Please call with further questions.
Original Note:
Consultation - Neurology 4
-
CONSULTING PHYSICIAN: Judith Saenz DO
REFERRING PHYSICIAN: Hospitalists/Dr. Kate
DICTATED BY: ARPIT Daly
DATE/TIME OF REQUEST: 08/05/24
DATE/TIME OF CONSULTATION: 08/05/24
Reason for Consultation: Seizure
History of Present Illness:
This is a 68-year-old right-handed male who has presented to the hospital on 07/30/24 with report of loss of consciousness and body shaking. Patient was noted to be bradycardiac en route to the ER and then found to be in complete heart block and
underwent cardiac cath which was unremarkable, and pacemaker insertion on 07/31/24. Patient and his at bedside report that for the past several months he has felt short of breath. He reports chronic daily alcohol of 10 beers/day and 2-3 weeks
prior to arrival he decreased this to 6 beers/day. The evening prior to arrival here (07/29/24), he reports that he went to reach for a light switch in his kitchen when he suddenly felt dizzy, then lost consciousness and fell to the ground. He reports
waking up moments later back at his baseline but feeling nauseous, and he went upstairs and did vomit once. He proceeded to go to sleep for the night. In the morning (07/30/24) his reports that he was awake in bed but complained of a headache and
fatigue. He fell back asleep and then shortly after while working in another room, she started to hear strange sounds. She found him in bed making guttural noises, mouth open, eyes open but with a blank midline stare, face turning red, and his upper
extremities were shaking. There was no tongue biting, or bowel/bladder incontinence. She called 911 and reports he continued to be in this state for about 15-20 minutes before coming out of it. It does not appear that EMS gave him any Ativan, he
spontaneously came out of this state. He was able to ambulate down a spiral staircase in his house and into the ambulance. He reports loss of consciousness and not remembering this event, however he can remember waking up with EMS in his house and
he was back to his baseline within seconds. Since arrival at the hospital they deny any further seizure-like events. He denies any personal or family history of seizure. He does endorse 5-6 events of head trauma associated with loss of
consciousness/concussion in the past. He also reports having dizziness and syncope years ago associated with taking several blood pressure medications.
Past Medical History: HTN, HLD, chronic daily ETOH, syncope
Surgical History: Pacemaker, cardiac cath, rectal resection for benign mass
Family History: Reviewed and noncontributory.
Social History: Reports drinking 10 beers per day, 2-3 weeks ago he cut down to 6 beers/day. Occasional marijuana. Denies tobacco.
Allergies: No known allergies.
Home Medications: See below.
Review of Symptoms:
Patient denies any fever, headache, chest pain, shortness of breath, GI or symptoms.
�Per the HPI.�All systems are reviewed negative except above.
Physical Exam:
The patient is afebrile, abdomen is nondistended, breathing is unlabored, skin is warm and dry, +3 pedal edema.
Neurologic Examination:
The patient is awake, alert and oriented x 3. He is able to follow commands and answer questions appropriately. There is no aphasia or dysarthria. On cranial nerve assessment, pupils are 3 mm bilateral, round and reactive to light and
accommodation. Visual hua are full. Extraocular movements are intact. Facial sensations are intact and bilaterally symmetrical, there is no facial asymmetry. Hearing is intact bilaterally to normal conversation volume. Tongue palate and uvula are
midline, there is no tongue laceration. Sternocleidomastoid strengths are full bilaterally. Motor strengths are 5/5 bilateral upper and lower extremities on medical research Max scale. There is no drift or involuntary movement noted. Deep tendon
reflexes are 1+ bilateral upper and lower extremities and Babinski is absent bilaterally. There was no extinction noted on double simultaneous stimulation. Coordination is intact by finger to nose bilaterally.
Lab Results: See below.
Neuro Imaging:
1. CT Head 07/30/24: No evidence of acute intracranial abnormality. Paranasal sinus disease as described.
Differentials for the patient's presentation include:
1. Episodes of loss of consciousness and body shaking likely convulsive syncope in the setting of complete heart block/bradycardia.
2. Very low concern for seizure given immediate return to baseline cognition/ability to walk down spiral staircase to ambulance, and lack of tongue bite or incontinence.
3. Does have risk factors for seizure including head trauma with loss of consciousness and chronic daily alcohol usage, but there no drastic reduction in alcohol prior to these events.
Patient has the following risk factors for their symptoms: Chronic daily alcohol use, history of multiple concussions with loss of consciousness.
Recommendations:
-Do not see a role for further neurological imaging at this point.
-Do not see a role for antiseizure medication at this point.
-[facility] protocol. Alcohol cessation counseling.
-DVT prophylaxis.
-Neurology will sign-off, please contact our service with any questions/concerns.
Discussed patient care with: Dr. Saenz, the patient, patient's
Vital Signs and Labs
-
Vital Signs and Labs:
Vital Signs
Temp Pulse Resp BP Pulse Ox
98.1 F 64 16 156/82 90
08/05/24 04:21 08/05/24 08:00 08/05/24 07:50 08/05/24 07:53 08/05/24 07:50
Lab Results
08/04/24 04:14
08/05/24 04:17
PT 17.0 Sec (11.4-14.6) H 07/30/24 18:34
INR 1.38 07/30/24 18:34
APTT 30.1 Sec (23.4-35.0) 07/30/24 18:34
Sodium 139 mmol/L (135-145) 08/05/24 04:17
Potassium 3.5 mmol/L (3.5-5.1) 08/05/24 04:17
BUN 15 mg/dl (9-20) 08/05/24 04:17
Glucose 107 mg/dl (70-99) H 08/05/24 04:17
Calcium 8.4 mg/dl (8.4-10.2) 08/05/24 04:17
Phosphorus 2.9 mg/dl (2.5-4.5) 08/04/24 04:14
Kup-J-Nrnlskwqhrt Pept 6060 pg/ml 08/01/24 05:08
Medications
-
Active Medications
Generic Name Dose Route Start Last Admin
Trade Name Freq PRN Reason Stop Dose Admin
Acetaminophen 650 mg 07/31/24 12:22 07/31/24 18:26
Acetaminophen 325 Mg Tablet PO 08/28/24 12:21 650 mg
Q4HPRN PRN Administration
mild pain
Carvedilol 6.25 mg 08/04/24 09:17 08/05/24 08:46
Carvedilol 3.125 Mg Tablet PO 08/28/24 19:59 6.25 mg
BID SARKIS Administration
Dapagliflozin 10 mg 08/04/24 09:15 08/05/24 08:47
Dapagliflozin (Farxiga) 10 Mg Tablet PO 09/01/24 09:14 10 mg
DAILY SARKIS Administration
Enoxaparin Sodium 40 mg 08/01/24 18:00 08/02/24 17:46
Enoxaparin Sodium 40 Mg/0.4 Ml Syringe SC 08/29/24 17:59 Not Given
QPM SARKIS
Folic Acid 1 mg 07/31/24 08:00 08/05/24 08:47
Folic Acid 1 Mg Tablet PO 08/28/24 07:59 1 mg
DAILY SARKIS Administration
Furosemide 40 mg 07/31/24 16:00 08/05/24 08:48
Furosemide 40 Mg (10 Mg/Ml) 4 Ml Vial IV 08/06/24 01:00 40 mg
BID AT 0800,1600 SARKIS Administration
Furosemide 40 mg 08/06/24 08:00
Furosemide 40 Mg Tablet PO 09/03/24 07:59
BID AT 0800,1600 SARKIS
Folic Acid 1 mg/ Sodium 50.2 mls @ 200.8 mls/hr 07/30/24 15:48
Chloride IV 08/27/24 15:47
DAILYPRN PRN
if NPO
Lisinopril 10 mg 08/06/24 08:00
Lisinopril 10 Mg Tablet PO 09/03/24 07:59
DAILY SARKIS
Lorazepam 1 mg 07/30/24 15:48 07/31/24 19:59
Lorazepam 1 Mg Tablet PO 08/27/24 15:47 1 mg
Q2HPRN PRN Administration
MSAS 5-7
Lorazepam 1 mg 07/30/24 15:48
Lorazepam 2 Mg/Ml Vial IV 08/27/24 15:47
Q1HPRN PRN
MSAS 8-11
Lorazepam 2 mg 07/30/24 15:48
Lorazepam 2 Mg/Ml Vial IV 08/27/24 15:47
Q1HPRN PRN
MSAS > 11
Miconazole Nitrate 0 applic 07/30/24 23:00 08/05/24 08:48
Miconazole Powder Bottle TOPICAL 08/27/24 22:59 1 applic
BID SARKIS Administration
Polyethylene Glycol 17 grams 08/02/24 11:00 08/05/24 08:49
Polyethylene Glycol Powder 17 Grams Packet PO 08/30/24 10:59 17 grams
DAILY SARKIS Administration
Potassium Chloride 20 meq 08/03/24 08:00 08/05/24 08:48
Potassium Chloride 20 Meq Extended Release Tablet PO 08/31/24 07:59 20 meq
DAILY SARKIS Administration
Sodium Chloride 0 ml 07/30/24 15:48
Sodium Chloride 0.9% (Preservative Free) 10 Ml Vial IV 08/27/24 15:47
PRN PRN
To dilute IV Ativan
Protocol
Sodium Chloride 0 flush 07/30/24 16:00 08/05/24 08:48
Sodium Chloride 0.9% (Flush) Syringe IV 08/27/24 15:59 2 flush
PER PROTOCOL SARKIS Administration
Spironolactone 12.5 mg 08/02/24 10:00 08/05/24 08:47
Spironolactone 12.5 Mg Dose (1/2 Of 25 Mg Tablet) PO 08/30/24 09:59 12.5 mg
DAILY SARKIS Administration
Thiamine HCl 100 mg 08/02/24 20:00 08/05/24 08:50
Thiamine 100 Mg Tablet PO 08/30/24 19:59 100 mg
BID SARKIS Administration
Triamcinolone Acetonide 0 applic 08/04/24 22:00 08/05/24 08:49
Triamcinolone Acetonide 0.1% (Ointment) 15 Gram Tube TOPICAL 09/01/24 21:59 1 applic
TID SARKIS Administration
Home Medications
�Medication �Instructions �Recorded
loperamide 2 mg tablet 2 mg PO Q4HPRN PRN diarrhea 07/30/24
--- NOTE | 2024-08-05 10:26 | W.PN.CARDCBS ---
Addendum entered and electronically signed by Anton Corrales MD 08/05/24 12:51:
I saw and examined the patient.
The Interdisciplinary Professor's note was reviewed and I agree with the note.
Comment:
GEN: No distress, awake, Ox3
HEENT: supple, anicteric, mmm
LUNGS: CTA, no wheezes/rales
CV: Irreg, S1/S2, 11/30 syst LSB, no gallop
ABD: soft, BS+, NT/ND
EXT: No edema
NEURO: Gross non-focal
SKIN: No rash
Plan:
Cont diuresis with IV Lasix. Will switch to po in AM
Replete K/Mg
Cont Coreg, aldactone. Increase Lisinopril to 10mg daily
Repeat ECG, follow QTc.
possible D/C in AM
Original Note:
Today's Communication / Plan
-
continue IV lasix today. transition to 40mg po BID in AM
replete K/mag
BMP/mag in 1 week upon DC
increase lisinopril. continue GDMT of NICM/CHF
EKG today, follow QTc
ambulate patient today
likely for DC in AM
Impression / Plan
-
PCP: None
Cardiology: Dr. Bartlett, last seen 2010
Impression:
Loss of consciousness 07/30/24
Seizure activity
Complete heart block status post permanent pacemaker 07/31/2024
Loss of ventricular capture with lead dislodgment 08/02/2024 s/p RV lead revision 08/03/24
Nonischemic myocardial injury
Cardiomyopathy, nonischemic, EF 40%
h/o cLBBB
Syncope
Severe ETOH use disorder
Marijuana smoker
Hyperglycemia without h/o DM
Echo 12/20/10: EF 50 to 55% without clear wall motion abnormality, mild MR, normal RV size and function, dilated aortic root measuring 4.1 cm
Echo 07/30/24: EF 40%, base to mid inferolateral, basal to mid inferoseptal and basal inferior munguia hypokinetic, mild concentric LVH, mild MR, mild TR, PAP 45 to 50 mmHg
Catheterization 07/31/2024: Nonobstructive CAD, LVEDP 40
Plan:
-He presented with unresponsive episode with concern for seizure activity. Noted to have complete heart block by EKG
-Echocardiogram with EF 40% and wall motion abnormalities with peak troponin of 0.7
-Underwent cardiac catheterization 07/31/24 with nonobstructive CAD and elevated LVEDP
-Underwent pacemaker placement 07/31/2024. Then noted to have lead dislodgment on 08/02/2024. status post RV lead revision 08/03/2024
-av paced rhythm on review of EKG 08/04 with prolonged QTc. will repeat EKG today. avoid QT prolonging meds
-replete K and mag
-PPM site with mild terrence-incisional ecchymoses
-Continues to diurese. Continue IV Lasix today with plan to transition to 40mg po BID in AM. Creatinine remains stable
-Wean supplemental oxygen
-CHF education
-Continue guideline directed medical therapy for NICM with Coreg, lisinopril, Aldactone, farxiga. increase lisinopril dose today for ongoing HTN.
-ETOH cessation
-ambulate patient today
-will need BMP/mag in 1 week upon DC
-OP cardiac follow up arranged
-for possible DC in AM
-d/w nursing
PREADMIT DATA:
-Patient came to [facility] today after losing consciousness at home and cardiology is consulted for complete heart block. Patient lives at home with his . Patient saw cardiology in 2010 for preoperative evaluation for possible anal cancer and he had
resection at [facility] and it ended up being benign tissue. Patient never followed up with cardiology again and last saw his PCP in 2016. Patient reports he has been homebound since about 2019. Patient's reports that patient has had visibly increased
ALCALA for the last month. Patient told his that he passed out yesterday, but awoke on his own and went to bed and took a nap. Details of yesterday's syncope are not clear and patient has severe ETOH use disorder. Patient then had an episode today
where he was unresponsive and flailing his arms so his called 911. When EMS arrived the patient was able to ambulate downstairs and in the ambulance he was found to be in complete heart block and was given droperidol 1.25 mg IV x1 plus Zofran 4
mg IV x1. In [facility] patient was given Zofran atropine 0.5 mg IV x1. Patient noted to have leukocytosis with left shift, but no fever. He has malodorous LEs, but no obvious wounds.
Progress Note - Health Outcomes Liaison
Subjective
Date of Service: August 05, 2024
feeling well. continues to report good response to IV lasix
Objective
Labs:
08/04/24 04:14
08/05/24 04:17
Labs
Hgb 12.1 g/dL (13.0-18.0) L 08/04/24 04:14
Hct 34.6 % (39.0-52.0) L 08/04/24 04:14
Plt Count 154 10^3/uL (130-400) 08/04/24 04:14
PT 17.0 Sec (11.4-14.6) H 07/30/24 18:34
INR 1.38 07/30/24 18:34
APTT 30.1 Sec (23.4-35.0) 07/30/24 18:34
Sodium 139 mmol/L (135-145) 08/05/24 04:17
Potassium 3.5 mmol/L (3.5-5.1) 08/05/24 04:17
BUN 15 mg/dl (9-20) 08/05/24 04:17
Creatinine 0.7 mg/dL (0.7-1.3) 08/05/24 04:17
Glucose 107 mg/dl (70-99) H 08/05/24 04:17
Vital Signs and I&O:
Vital Signs
Temp Pulse Resp BP Pulse Ox
98.1 F 64 16 156/82 90
08/05/24 04:21 08/05/24 08:00 08/05/24 07:50 08/05/24 07:53 08/05/24 07:50
Vital Signs
Temp Pulse Resp BP Pulse Ox
98.1 F 64 16 156/82 90
08/05/24 04:21 08/05/24 08:00 08/05/24 07:50 08/05/24 07:53 08/05/24 07:50
Intake & Output
08/03/24 08/04/24 08/05/24 08/06/24
07:59 07:59 07:59 07:59
Intake Total 200 / 200 360 / 360 240 / 240
Output Total 3950 / 3950 3450 / 3450 2150 / 2150
Balance -3750 / -3750 -3090 / -3090 -2150 / -2150 240 / 240
Physical Exam
Physical Exam
GEN: No distress, awake, alert, oriented x3.
HEENT: supple, anicteric, mmm, eomi
LUNGS: CTA B/L, no wheezes
CV: Reg, S1/S2, no murmur
ABD: soft, BS+, NT/ND
EXT: No cyanosis, clubbing. 1+ edema of RLE, trace of LLE. pneumatic compression devices in place
NEURO: Gross non-focal
SKIN: Warm, pink, dry. No rash. lipoma of mid back. L chest dressing c/d/i, mild terrence-incisional ecchymoses
[2024-08-05 11:00] VITALS: BP 126/70
[2024-08-05] MEDS: MAGNESIUM OXIDE 500 MG PO (11:08)
[2024-08-05] MEDS: KCL 40 MEQ PO (11:08)
[2024-08-05] MEDS: TYLENOL 650 MG PO ×2 (12:50→17:07)
--- NOTE | 2024-08-05 14:02 | CM ---
CM following for DC planning needs.
Met w/ patient at bedside. Spouse also present.
Reviewed DC plan for home once medically stable.
Pt. would like VN, however, patient does not have current PCP. Spouse knows to contact PCP for appt. as soon as possible and then will contact [facility] to schedule services. Discussed this w/ patient.
Will cont. to follow.
[2024-08-05 15:38] VITALS: BP 140/69
--- NOTE | 2024-08-05 16:25 | W.PN.HOSP.TC ---
Today's Communication/Plan
-
Continue IV Lasix
Assessment / Plan
Assessment / Plan
Gen-AAOx3, NAD, obese
HEENT-NC, AT, anicteric, clear oral mm
Neck-supple
CV-reg, no M, +S1/S2
Lungs-clear B/L
Abd-soft, NT, ND
Ext-bilateral lower extremity lymphedema, right greater than left.
Musculoskeletal-no cyanosis, clubbing
Skin-warm and dry
Neuro-grossly non-focal
Psych-calm, cooperative
68-year-old male presented with syncope/seizure, felt to be due to complete heart block. Cardiac cath with nonobstructive disease. Pacemaker placed. Also with alcohol use disorder. Has not seen a physician in many years.
Acute hypoxic respiratory insufficiency -now on room air. but previously required 2 L of nasal cannula oxygen. Wean oxygen down as able. Etiology of respiratory insufficiency most likely due to pulmonary edema due to acute heart failure. Doubt
pneumonia clinically.
Nocturnal Hypoxia 08/04/24 to 08/05/24 -- consulted pulmonary
Acute heart failure with reduced EF exacerbation/nonischemic cardiomyopathy -new diagnosis. Presumed alcohol induced cardiomyopathy given heavy alcohol abuse history. Echocardiogram shows LVEF 40% with hypokinesis noted. Cardiac catheterization
with nonobstructive coronary disease. Continue IV Lasix per cardiology. BNP 6060.
Lower extremity edema improving, I's and O's are negative.
Hypokalemia -magnesium normal. Replete orally.
Complete heart block -presentation with syncope, seizure. TSH 3.47. Dual-chamber permanent pacemaker placed 07/31/24, followed by extraction of failed/dislodged right ventricular pacing lead and implantation of new RV pacing lead utilizing Left
Bundle Branch conduction system capture for pacing performed on 08/03/24
New onset seizures -differential diagnosis includes complete heart block versus alcohol related seizure versus other causes. Denies history of seizures. CT head without acute disease. No indication for antiepileptics currently. Neurology
consulted, no further workup or treatment needed.
Transient leukocytosis -doubt infection. Suspect leukemoid reaction due to presentation with syncope, seizure, complete heart block. Looks nontoxic. Afebrile.
Bilateral pleural effusions -chest x-ray shows small to moderate right effusion, small left effusion. Patchy parenchymal opacity in the left lower lung most likely atelectasis. Right lower lung atelectasis. Denies significant pulmonary symptoms.
Etiology of pleural effusions presumed to be due to heart failure. Albumin noted to be 2.9.
Troponin elevation -suspect acute nonischemic myocardial injury related to multiple factors including complete heart block, CHF, etc. Troponin trending down.
Chronic lower extremity lymphedema -has not been addressed as an outpatient. Does not have a physician. Recommend outpatient follow-up with lymphedema clinic in [place].
Severe alcohol use disorder -reportedly last drink was July 29. Monitor for alcohol withdrawal syndrome. Continue thiamine, folic acid. Denies history of alcohol withdrawal in the past. Patient interested in quitting. Has not required any
lorazepam over the past 48 hours.
Left bundle branch block
Aortic dilation
Essential hypertension -not on medications at home. Blood pressure stable here. Monitor for now.
Obesity due to excess calories
Full code
PT/OT
Anticipated Discharge: Within 24 hours
Subjective/Interval History
-
Date of Service: August 05, 2024
Patient was seen and examined. He denied any new symptoms or complaints.
Objective Data
-
Labs:
Laboratory Results
08/05/24
04:17
Sodium 139
Potassium 3.5
Chloride 100
Carbon Dioxide 32 H
BUN 15
Creatinine 0.7
Glucose 107 H
Calcium 8.4
Vital Signs:
Vital Signs
Temp Pulse Resp BP Pulse Ox
98.3 F 60 16 140/69 96
08/05/24 15:38 08/05/24 16:00 08/05/24 15:38 08/05/24 15:39 08/05/24 15:38
I&O
08/04/24 08/05/24 08/06/24
06:59 06:59 06:59
Intake Total 360 / 360 480 / 480
Output Total 3450 / 3450 2150 / 2150 2400 / 2400
Balance -3090 / -3090 -2150 / -2150 -1920 / -1920
[2024-08-05 19:59] VITALS: BP 150/88
[2024-08-05 22:47] VITALS: BP 121/65
[2024-08-06] VITALS (11 sets, daily range): BP systolic 104–150; BP diastolic 70–108; O2SAT 94–97; BMI 33.3
--- NOTE | 2024-08-06 02:42 | PTCARENOTE ---
Pt. has no complaints pain/discomfort this shift, VSS, OOB to chair & BR, gait steady with RW. AV paced on the monitor, left chest wall Aquacel intact. Condom catheter # 30 draining shelly urine. Pt. complaining of constipation not relieved by
Miralax, requesting another oral option. [facility] notified, awaiting orders.
[2024-08-06] MEDS: SENOKOT-S 1 TABLET PO (04:58)
[2024-08-06 05:31] LABS: Blood Urea Nitrogen 18 mg/dl (9-20); Calcium 8.7 mg/dl (8.4-10.2); Carbon Dioxide 30 mmol/L (22-30); Chloride 99 mmol/L (98-107); Estimated Creatinine Clearance > 125 ml/min; Glucose 112 mg/dl (70-99); Magnesium 1.8 mg/dl (1.6-2.3); Potassium 3.7 mmol/L (3.5-5.1); Sodium 138 mmol/L (135-145); eGFR > 60.00
--- NOTE | 2024-08-06 08:36 | W.PN.CARDCBS ---
Addendum entered and electronically signed by Eddi Kyle DO 08/06/24 11:59:
I saw and examined the patient.
The [facility] Adviser's note was reviewed and I agree with the note.
Comment:
Plan:
Compensated from cardiac standpoint
Transition to PO lasix
Increased Aldactone for better bp control and with hypokalemia
Reviewed cath and PPM procedures.
PT/OT eval to help with disposition as per primary service.
Outpt follow up arranged .
Discussed with primary service.
Please recall if needed.
Original Note:
Today's Communication / Plan
-
ambulate. PT/OT evals
increase spironolactone. replete mag
transition to po lasix 40mg BID
DC planning
Impression / Plan
-
PCP: None
Cardiology: Dr. Bartlett, last seen 2010
Impression:
Loss of consciousness 07/30/24
Seizure activity
Complete heart block status post permanent pacemaker 07/31/2024
Loss of ventricular capture with lead dislodgment 08/02/2024 s/p RV lead revision 08/03/24
Nonischemic myocardial injury
Cardiomyopathy, nonischemic, EF 40%
h/o cLBBB
Syncope
Severe ETOH use disorder
Marijuana smoker
Hyperglycemia without h/o DM
Echo 12/20/10: EF 50 to 55% without clear wall motion abnormality, mild MR, normal RV size and function, dilated aortic root measuring 4.1 cm
Echo 07/30/24: EF 40%, base to mid inferolateral, basal to mid inferoseptal and basal inferior munguia hypokinetic, mild concentric LVH, mild MR, mild TR, PAP 45 to 50 mmHg
Catheterization 07/31/2024: Nonobstructive CAD, LVEDP 40
Plan:
-He presented with unresponsive episode with concern for seizure activity. Noted to have complete heart block by EKG. Echocardiogram with EF 40% and wall motion abnormalities with peak troponin of 0.7. Underwent cardiac catheterization 07/31/24 with
nonobstructive CAD and elevated LVEDP. Underwent pacemaker placement 07/31/2024. Then noted to have lead dislodgment on 08/02/2024. status post RV lead revision 08/03/2024
-He remains AV paced on review of telemetry overnight. QTc improving from yesterday status post K and mag repletion. will replete again today
-continues to diurese well with grossly negative I&O overnight. transition to po lasix 40mg BID for PM dose. Cr stable
-home O2 eval
-ambulate today. PT/OT evals. patient has L arm restriction and reports having a lot of steps at home. discussed SNF as option upon DC pending evaluation
-CHF education provided today.
-Continue guideline directed medical therapy for NICM with Coreg, lisinopril, Aldactone, farxiga. increase aldactone today for hypokalemia and ongoing hypertension.
-ETOH cessation
-will need BMP/mag in 1 week upon DC
-OP cardiac follow up arranged
-for possible DC later today vs in AM
-d/w nursing
PREADMIT DATA:
-Patient came to [facility] today after losing consciousness at home and cardiology is consulted for complete heart block. Patient lives at home with his . Patient saw cardiology in 2010 for preoperative evaluation for possible anal cancer and he had
resection at [facility] and it ended up being benign tissue. Patient never followed up with cardiology again and last saw his PCP in 2017. Patient reports he has been homebound since about 2019. Patient's reports that patient has had visibly increased
ALCALA for the last month. Patient told his that he passed out yesterday, but awoke on his own and went to bed and took a nap. Details of yesterday's syncope are not clear and patient has severe ETOH use disorder. Patient then had an episode today
where he was unresponsive and flailing his arms so his called 911. When EMS arrived the patient was able to ambulate downstairs and in the ambulance he was found to be in complete heart block and was given droperidol 1.25 mg IV x1 plus Zofran 4
mg IV x1. In [facility] patient was given Zofran atropine 0.5 mg IV x1. Patient noted to have leukocytosis with left shift, but no fever. He has malodorous LEs, but no obvious wounds.
Progress Note - Superintendent Maintenance
Subjective
Date of Service: August 06, 2024
feeling well. no complaints. reports concerned about LUE restriction at home.
Objective
Labs:
08/04/24 04:14
08/06/24 04:54
Labs
Hgb 12.1 g/dL (13.0-18.0) L 08/04/24 04:14
Hct 34.6 % (39.0-52.0) L 08/04/24 04:14
Plt Count 154 10^3/uL (130-400) 08/04/24 04:14
PT 17.0 Sec (11.4-14.6) H 07/30/24 18:34
INR 1.38 07/30/24 18:34
APTT 30.1 Sec (23.4-35.0) 07/30/24 18:34
Sodium 138 mmol/L (135-145) 08/06/24 04:54
Potassium 3.7 mmol/L (3.5-5.1) 08/06/24 04:54
BUN 18 mg/dl (9-20) 08/06/24 04:54
Creatinine 0.7 mg/dL (0.7-1.3) 08/06/24 04:54
Glucose 112 mg/dl (70-99) H 08/06/24 04:54
Vital Signs and I&O:
Vital Signs
Temp Pulse Resp BP Pulse Ox
98.5 F 62 18 150/73 94
08/06/24 07:00 08/06/24 05:00 08/06/24 07:00 08/06/24 04:47 08/06/24 07:00
Vital Signs
Temp Pulse Resp BP Pulse Ox
98.5 F 62 18 150/73 94
08/06/24 07:00 08/06/24 05:00 08/06/24 07:00 08/06/24 04:47 08/06/24 07:00
Intake & Output
08/04/24 08/05/24 08/06/24 08/07/24
07:59 07:59 07:59 07:59
Intake Total 360 / 360 720 / 720
Output Total 3450 / 3450 2150 / 2150 4400 / 4400
Balance -3090 / -3090 -2150 / -2150 -3680 / -3680
Physical Exam
Physical Exam
GEN: No distress, awake, alert, oriented x3.
HEENT: supple, anicteric, mmm, eomi
LUNGS: CTA B/L, no wheezes
CV: Reg, S1/S2, no murmur
ABD: soft, BS+, NT/ND
EXT: No cyanosis, clubbing. 1+ edema of RLE, trace of LLE.
NEURO: Gross non-focal
SKIN: Warm, pink, dry. No rash. L chest dressing c/d/i
[2024-08-06] MEDS: VITAMIN B1 100 MG PO ×2 (08:59→20:38)
[2024-08-06] MEDS: MIRALAX 17 GRAMS PO (08:59)
[2024-08-06] MEDS: FARXIGA 10 MG PO (08:59)
[2024-08-06] MEDS: KCL 20 MEQ PO (08:59)
[2024-08-06] MEDS: FOLVITE 1 MG PO (09:00)
[2024-08-06] MEDS: COREG 6.25 MG PO ×2 (09:03→20:38)
[2024-08-06] MEDS: ZESTRIL 10 MG PO (09:03)
[2024-08-06] MEDS: LASIX 40 MG IV (09:04)
[2024-08-06] MEDS: TRIAMCINOLONE 0.1% OINTMENT 1 APPLIC TOPICAL ×3 (09:04→20:39)
[2024-08-06] MEDS: ALDACTONE 25 MG PO (09:23)
[2024-08-06] MEDS: MAGNESIUM OXIDE 500 MG PO (09:23)
[2024-08-06] MEDS: DESENEX/MITRAZOL/ZEASORB 1 APPLIC TOPICAL ×2 (09:24→20:38)
[2024-08-06] MEDS: ALDACTONE PO (09:35)
--- NOTE | 2024-08-06 10:10 | PTCARENOTE ---
Pt denies current or history of MRSA.
--- NOTE | 2024-08-06 11:00 | W.PN.HOSP.TC ---
Today's Communication/Plan
-
Discharge today after oxygen assessment
Assessment / Plan
Assessment / Plan
Physical Exam
Gen-AAOx3, NAD, obese
HEENT-NC, AT, anicteric, clear oral mm
Neck-supple
CV-reg, no M, +S1/S2
Lungs-clear B/L
Abd-soft, NT, ND
Ext-bilateral lower extremity lymphedema, right greater than left.
Musculoskeletal-no cyanosis, clubbing
Skin-warm and dry
Neuro-grossly non-focal
Psych-calm, cooperative
Assessment/Plan
68-year-old male presented with syncope/seizure, felt to be due to complete heart block. Cardiac cath with nonobstructive disease. Pacemaker placed. Also with alcohol use disorder. Has not seen a physician in many years.
Complete heart block status post permanent pacemaker 07/31/2024
Loss of ventricular capture with lead dislodgment 08/02/2024 s/p RV lead revision 08/03/24
Acute hypoxic respiratory insufficiency -now on room air. but previously required 2 L of nasal cannula oxygen. Wean oxygen down as able. Etiology of respiratory insufficiency most likely due to pulmonary edema due to acute heart failure. Doubt
pneumonia clinically. Check home oxygen assessment prior to discharge.
Nocturnal Hypoxia 08/04/24 to 08/05/24 -- RESOLVED
Acute heart failure with reduced EF exacerbation/nonischemic cardiomyopathy/nonischemic myocardial injury/cardiomyopathy, nonischemic, EF 40% - new diagnosis. Presumed alcohol induced cardiomyopathy given heavy alcohol abuse history.
Echocardiogram shows LVEF 40% with hypokinesis noted. Cardiac catheterization with nonobstructive coronary disease. Completed IV Lasix, now on PO Lasix 40 mg BID per cardiology. BNP 6060.
Lower extremity edema improving, I's and O's are negative. will need BMP/mag in 1 week upon DC
Nonobstructive coronary artery disease
Hypokalemia - magnesium normal. Replete orally. Aldactone increased for better bp control and with hypokalemia.
Complete heart block -presentation with syncope, seizure. TSH 3.47. Dual-chamber permanent pacemaker placed 07/31/24, followed by extraction of failed/dislodged right ventricular pacing lead and implantation of new RV pacing lead utilizing Left
Bundle Branch conduction system capture for pacing performed on 08/03/24
New onset seizures -differential diagnosis includes complete heart block versus alcohol related seizure versus other causes. Denies history of seizures. CT head without acute disease. No indication for antiepileptics currently. Neurology
consulted, no further workup or treatment needed.
Transient leukocytosis -doubt infection. Suspect leukemoid reaction due to presentation with syncope, seizure, complete heart block. Looks nontoxic. Afebrile.
Bilateral pleural effusions -chest x-ray shows small to moderate right effusion, small left effusion. Patchy parenchymal opacity in the left lower lung most likely atelectasis. Right lower lung atelectasis. Denies significant pulmonary symptoms.
Etiology of pleural effusions presumed to be due to heart failure. Albumin noted to be 2.9.
Troponin elevation -suspect acute nonischemic myocardial injury related to multiple factors including complete heart block, CHF, etc. Troponin trending down.
Chronic lower extremity lymphedema -has not been addressed as an outpatient. Does not have a physician. Recommend outpatient follow-up with lymphedema clinic in [place].
Severe alcohol use disorder -reportedly last drink was July 29. Monitor for alcohol withdrawal syndrome. Continue thiamine, folic acid. Denies history of alcohol withdrawal in the past. Patient interested in quitting. Has not required any
lorazepam over the past 48 hours. Alcohol cessation.
Left bundle branch block
Aortic dilation
Essential hypertension -not on medications at home. Blood pressure stable here. Monitor for now.
History of cLBBB
Marijuana smoker
Hyperglycemia without history of Diabetes Mellitus
Obesity due to excess calories
Full code
PT/OT
More than 30 minutes spent in discharge including
Final examination of the patient
Summarizing hospital stay
Instructions for continuing care to all relevant caregivers
Preparation of discharge records, prescriptions, and referral forms
Total time spent (in minutes): 43
Anticipated Discharge: Today
Subjective/Interval History
-
Date of Service: August 06, 2024
Patient was seen and examined. He reported doing fine, denied any new symptoms or complaints.
Objective Data
-
Labs:
Laboratory Results
08/06/24
04:54
Sodium 138
Potassium 3.7
Chloride 99
Carbon Dioxide 30
BUN 18
Creatinine 0.7
Glucose 112 H
Calcium 8.7
Vital Signs:
Vital Signs
Temp Pulse Resp BP Pulse Ox
98.5 F 61 18 107/72 94
08/06/24 07:00 08/06/24 10:00 08/06/24 07:00 08/06/24 09:23 08/06/24 08:50
I&O
08/05/24 08/06/24 08/07/24
06:59 06:59 06:59
Intake Total 720 / 720
Output Total 2150 / 2150 4400 / 4400
Balance -2150 / -2150 -3680 / -3680
--- NOTE | 2024-08-06 12:21 | CM ---
CM following for DC planning needs.
Met w/ patient at bedside. Pt. is hopeful for DC soon but would like to stay here today as he received 'a double dose of Lasix'.
We reviewed DC plans for home-care once PCP is established. He was uncertain if spouse successfully arranged appointment.
Pt. will need commode and RW upon DC per PT. TT to Attending to notify. PT will provide upon DC.
Plan is for home w/ DME + VN once PCP appointment is completed.
[2024-08-06] MEDS: DULCOLAX 10 MG RECTAL (14:17)
[2024-08-06] MEDS: TYLENOL 650 MG PO (16:45)
[2024-08-06] MEDS: LASIX 40 MG PO (17:34)
--- NOTE | 2024-08-06 17:51 | PTCARENOTE ---
Milk of molasses enema given for constipation. Will monitor. Plan of care ongoing.
[2024-08-07] VITALS (10 sets, daily range): BP systolic 89–130; BP diastolic 47–67; PULSE 60; O2SAT 98; BMI 32.8
--- NOTE | 2024-08-07 00:22 | PTCARENOTE ---
Pt with some relief x2 following enema. BS still hyperactive with complaints of bloating. Pt ambulating the room with stand by assistance and RW. LEAN FACILITATOR on the monitor. POC discussed- pt and verbalized understanding.
[2024-08-07 05:09] LABS: Blood Urea Nitrogen 19 mg/dl (9-20); Calcium 9.1 mg/dl (8.4-10.2); Carbon Dioxide 26 mmol/L (22-30); Chloride 99 mmol/L (98-107); Estimated Creatinine Clearance 110 ml/min; Glucose 103 mg/dl (70-99); Phosphorus 3.5 mg/dl (2.5-4.5); Potassium 3.7 mmol/L (3.5-5.1); Sodium 138 mmol/L (135-145); eGFR > 60.00
[2024-08-07] MEDS: ALDACTONE 25 MG PO (09:20)
[2024-08-07] MEDS: COREG 6.25 MG PO ×2 (09:21→20:12)
[2024-08-07] MEDS: FOLVITE 1 MG PO (09:21)
[2024-08-07] MEDS: LASIX 40 MG PO ×2 (09:22→15:24)
[2024-08-07] MEDS: VITAMIN B1 100 MG PO ×2 (09:22→20:13)
[2024-08-07] MEDS: KCL 20 MEQ PO (09:22)
[2024-08-07] MEDS: ZESTRIL 10 MG PO (09:22)
[2024-08-07] MEDS: MIRALAX 17 GRAMS PO (09:22)
[2024-08-07] MEDS: TRIAMCINOLONE 0.1% OINTMENT 1 APPLIC TOPICAL ×3 (09:23→20:13)
[2024-08-07] MEDS: FLUSH (NSS) 1 FLUSH IV (09:24)
--- NOTE | 2024-08-07 10:41 | PTCARENOTE ---
Received patient this morning resting in bed, at the bedside. Denies any complaints other than inability to still have a bowel movement. TT to Dr. Kate for further orders.
--- NOTE | 2024-08-07 11:00 | CM ---
CM following for DC planning needs.
Met w/ patient at bedside. He is hopeful for DC soon but still complaining of constipation.
DC plan is for home w/ [facility] once PCP visit has been completed. This has been discussed w/ patient and spouse mult. times.
Spouse informs me that she has not yet made PCP appt. but it is 'on her list'.
Will remain avail.
[2024-08-07] MEDS: FARXIGA 10 MG PO (11:30)
[2024-08-07] MEDS: DESENEX/MITRAZOL/ZEASORB 1 APPLIC TOPICAL ×2 (11:30→20:13)
[2024-08-07] MEDS: SENOKOT-S 1 TABLET PO (11:38)
--- NOTE | 2024-08-07 12:12 | CON.GI ---
Consultation
-
Date/Time Consultation Requested: 08/07/2024, 11am
Date/Time Consultation Performed: 08/07/2024, 1pm
Requesting Provider: Dr. Kate
Performing Provider: Dr. Wilkinson
Reason for Consultation: constipation
Medical History
Chief Complaint / HPI
Chief Complaint: syncope
History of Present Illness:
68-year-old male past medical history of left bundle branch block, aortic dilation, hypertension, alcohol use disorder, traumatic injury as a child status post back surgery, bowel resection, presenting with seizure-like activity and syncopal episode
found to be in complete heart block. Underwent echo, cath, pacemaker. Cleared by cardiology for discharge.
GI is being consulted for constipation. He underwent an X-ray yesterday showed mild stool burden. He had a soft liquid BM 08/06.
For bowel regimen he has gotten docusate with senna daily since 08/05, miralax 17 g daily since 08/05, one dose of molasses enema.
Normally doesn't have issues with bowels just since being in hospital.
Past Medical History
Past Medical History: HTN and Other (left bundle branch block, aortic dilation, traumatic injury as a child status post back surgery)
Past Surgical History: Other (Back surgeries, splenectomy, colon resection)
Social History
Tobacco: Non-Smoker
Alcohol: Daily (8-10)
Drug: Marijuana
Allergies / Home Medications
Allergy/AdvReac Type Severity Reaction Status Date / Time
No Known Allergies Allergy Verified 07/30/24 12:15
�Medication �Instructions �Recorded
loperamide 2 mg tablet 2 mg PO Q4HPRN PRN diarrhea 07/30/24
Review of Systems
-
All other systems: A 12 pt ROS was Negative except as stated above in HPI
Vital Signs
Temp Pulse Resp BP Pulse Ox
98.3 F 60 20 111/65 95
08/07/24 11:40 08/07/24 09:00 08/07/24 11:40 08/07/24 07:02 08/07/24 11:40
Physical Exam
Exam
General: Well Developed
HEENT: Normocephalic
Respiratory: Clear
Cardiac: S1/S2
GI: Non Tender and Non Distended
Musculoskeletal: No Clubbing
Skin: Warm
Neuro: AO x 3
Psych: Calm
Results
WBC 9.2 10^3/uL (4.8-10.8) 08/04/24 04:14
Hgb 12.1 g/dL (13.0-18.0) L 08/04/24 04:14
Hct 34.6 % (39.0-52.0) L 08/04/24 04:14
MCV 94.3 fL (80.0-94.0) H 08/04/24 04:14
Plt Count 154 10^3/uL (130-400) 08/04/24 04:14
Absolute Neuts (auto) 8.0 10^3/uL (1.4-6.5) H 07/31/24 03:35
PT 17.0 Sec (11.4-14.6) H 07/30/24 18:34
INR 1.38 07/30/24 18:34
APTT 30.1 Sec (23.4-35.0) 07/30/24 18:34
Sodium 138 mmol/L (135-145) 08/07/24 03:58
Potassium 3.7 mmol/L (3.5-5.1) 08/07/24 03:58
Chloride 99 mmol/L (98-107) 08/07/24 03:58
Carbon Dioxide 26 mmol/L (22-30) 08/07/24 03:58
BUN 19 mg/dl (9-20) 08/07/24 03:58
Creatinine 0.8 mg/dL (0.7-1.3) 08/07/24 03:58
Calcium 9.1 mg/dl (8.4-10.2) 08/07/24 03:58
Total Bilirubin 1.7 mg/dl (0.2-1.3) H 07/31/24 03:35
AST 18 U/L (17-59) 07/31/24 03:35
ALT 12 U/L (0-50) 07/31/24 03:35
Alkaline Phosphatase 81 U/L (38-126) 07/31/24 03:35
Lipase 40 U/L (23-300) 07/30/24 12:26
Hepatitis C Antibody Negative (Negative) 07/30/24 18:34
Diagnostic Image Results:
Prior GI Procedures:
EGD:
Colonoscopy:
Assessment / Plan
-
69 yo M a/w syncope/seizure like activity found to be in complete heart block, GI being consulted for constipation with last BM 48 hours ago with bowel regimen (miralax daily and senna/docusate) with X-ray yesterday with mild stool burden. Could be
med related vs hospitalization.
Mag citrate x1.
If has BM OK GI POV for discharge.
Encouraged pt to have high fiber diet.
-
-
Thank you for consultation and allowing me to participate in the patient's care. Please call the test inspection engineer GI physician during the after hours with any questions or concerns.
[2024-08-07] MEDS: CITROMA 300 ML PO (15:23)
--- NOTE | 2024-08-07 18:29 | W.PN.HOSP.TC ---
Today's Communication/Plan
-
Abdominal Pain, no bowel movement yet, consulted GI, enema yesterday, mag citrate today
Hopefully patient will have a bowel movement and will be agreeable to discharge tomorrow
Assessment / Plan
Assessment / Plan
Physical Exam
Gen-AAOx3, NAD, obese
HEENT-NC, AT, anicteric, clear oral mm
Neck-supple
CV-reg, no M, +S1/S2
Lungs-clear B/L
Abd-soft, NT, ND
Ext-bilateral lower extremity lymphedema, right greater than left.
Musculoskeletal-no cyanosis, clubbing
Skin-warm and dry
Neuro-grossly non-focal
Psych-calm, cooperative
Assessment/Plan
68-year-old male presented with syncope/seizure, felt to be due to complete heart block. Cardiac cath with nonobstructive disease. Pacemaker placed. Also with alcohol use disorder. Has not seen a physician in many years.
Complete heart block status post permanent pacemaker 07/31/2024
Loss of ventricular capture with lead dislodgment 08/02/2024 s/p RV lead revision 08/03/24
Acute hypoxic respiratory insufficiency -now on room air. but previously required 2 L of nasal cannula oxygen. Wean oxygen down as able. Etiology of respiratory insufficiency most likely due to pulmonary edema due to acute heart failure. Doubt
pneumonia clinically. Check home oxygen assessment prior to discharge.
Nocturnal Hypoxia 08/04/24 to 08/05/24 -- RESOLVED
Constipation and Abdominal Pain -- Enema on 08/06/24 did not work; consulted GI and magnesium citrate ordered
Acute heart failure with reduced EF exacerbation/nonischemic cardiomyopathy/nonischemic myocardial injury/cardiomyopathy, nonischemic, EF 40% - new diagnosis. Presumed alcohol induced cardiomyopathy given heavy alcohol abuse history.
Echocardiogram shows LVEF 40% with hypokinesis noted. Cardiac catheterization with nonobstructive coronary disease. Completed IV Lasix, now on PO Lasix 40 mg BID per cardiology. BNP 6060.
Lower extremity edema improving, I's and O's are negative. will need BMP/mag in 1 week upon DC
Nonobstructive coronary artery disease
Hypokalemia - magnesium normal. Replete orally. Aldactone increased for better bp control and with hypokalemia.
Complete heart block -presentation with syncope, seizure. TSH 3.47. Dual-chamber permanent pacemaker placed 07/31/24, followed by extraction of failed/dislodged right ventricular pacing lead and implantation of new RV pacing lead utilizing Left
Bundle Branch conduction system capture for pacing performed on 08/03/24
New onset seizures -differential diagnosis includes complete heart block versus alcohol related seizure versus other causes. Denies history of seizures. CT head without acute disease. No indication for antiepileptics currently. Neurology
consulted, no further workup or treatment needed.
Transient leukocytosis -doubt infection. Suspect leukemoid reaction due to presentation with syncope, seizure, complete heart block. Looks nontoxic. Afebrile.
Bilateral pleural effusions -chest x-ray shows small to moderate right effusion, small left effusion. Patchy parenchymal opacity in the left lower lung most likely atelectasis. Right lower lung atelectasis. Denies significant pulmonary symptoms.
Etiology of pleural effusions presumed to be due to heart failure. Albumin noted to be 2.9.
Troponin elevation -suspect acute nonischemic myocardial injury related to multiple factors including complete heart block, CHF, etc. Troponin trending down.
Chronic lower extremity lymphedema -has not been addressed as an outpatient. Does not have a physician. Recommend outpatient follow-up with lymphedema clinic in [place].
Severe alcohol use disorder -reportedly last drink was July 29. Monitor for alcohol withdrawal syndrome. Continue thiamine, folic acid. Denies history of alcohol withdrawal in the past. Patient interested in quitting. Has not required any
lorazepam over the past 48 hours. Alcohol cessation.
Left bundle branch block
Aortic dilation
Essential hypertension -not on medications at home. Blood pressure stable here. Monitor for now.
History of cLBBB
Marijuana smoker
Hyperglycemia without history of Diabetes Mellitus
Obesity due to excess calories
Full code
PT/OT
Anticipated Discharge: Within 24 hours
Subjective/Interval History
-
Date of Service: August 07, 2024
Patient was seen and examined. He reported no bowel movement yet despite enema.
Objective Data
-
Vital Signs:
Vital Signs
Temp Pulse Resp BP Pulse Ox
97.4 F 62 16 104/58 100
08/07/24 15:54 08/07/24 16:00 08/07/24 15:54 08/07/24 15:53 08/07/24 15:54
I&O
08/06/24 08/07/24 08/08/24
06:59 06:59 06:59
Intake Total 720 / 720 600 / 600 240 / 240
Output Total 4400 / 4400 800 / 800
Balance -3680 / -3680 -200 / -200 240 / 240
--- NOTE | 2024-08-07 18:38 | PTCARENOTE ---
Patient seen by GI, given mag citrate as ordered but still has not had a bowel movement, passing gas and bowel sounds present. In and out of the bathroom frequently, oob in the chair now, dinner at the bedside but not much of an appetite.
[2024-08-08] VITALS (13 sets, daily range): BP systolic 92–132; BP diastolic 50–70; PULSE 60; BMI 32.5
--- NOTE | 2024-08-08 00:32 | PTCARENOTE ---
Pt.'s BP 88/46 & 89/47 at 2250 while sitting OOB in chair. Stated he had felt dizzy earlier when ambulating but it passed. Pt. assisted back to bed (did not get dizzy when he stood) and BP rechecked with results of 114/53. Rechecked again at
0009 results 110/56 (pt. in bed sleeping). AV paced on the monitor. Attempted to have BM a couple of times at the beginning of shift, said he had one small liquid stool.
[2024-08-08 04:58] LABS: Blood Urea Nitrogen 29 mg/dl (9-20); Calcium 8.9 mg/dl (8.4-10.2); Carbon Dioxide 29 mmol/L (22-30); Chloride 100 mmol/L (98-107); Estimated Creatinine Clearance 68 ml/min; Glucose 112 mg/dl (70-99); Magnesium 2.4 mg/dl (1.6-2.3); Potassium 3.5 mmol/L (3.5-5.1); Sodium 137 mmol/L (135-145)
--- NOTE | 2024-08-08 08:24 | W.PN.GI.CBS2 ---
Today's Communication / Plan
-
gi signing off
Assessment / Plan
-
69 yo M a/w syncope/seizure like activity found to be in complete heart block, GI being consulted for constipation with last BM 48 hours ago with bowel regimen (miralax daily and senna/docusate) with X-ray yesterday with mild stool burden. Could be
med related vs hospitalization. Now having BM with mag citrate (diarrhea expected).
OK GI POV for d/c.
GI will sign off please call with ?s.
Can take miralax 1-2 times a day at home for constipation.
If ongoing constipation, patient given GI card for phone number for appt.
Subjective
Subjective
Date of Service: August 08, 2024
diarrhea after mag citrate
Objective
Data Reviewed
Laboratory Data:
Laboratory Results
08/04/24 04:14
08/08/24 04:01
Laboratory Results
PT 17.0 Sec (11.4-14.6) H 07/30/24 18:34
INR 1.38 07/30/24 18:34
APTT 30.1 Sec (23.4-35.0) 07/30/24 18:34
Phosphorus 3.5 mg/dl (2.5-4.5) 08/07/24 03:58
Magnesium 2.4 mg/dl (1.6-2.3) H 08/08/24 04:01
Total Bilirubin 1.7 mg/dl (0.2-1.3) H 07/31/24 03:35
AST 18 U/L (17-59) 07/31/24 03:35
ALT 12 U/L (0-50) 07/31/24 03:35
Alkaline Phosphatase 81 U/L (38-126) 07/31/24 03:35
Lipase 40 U/L (23-300) 07/30/24 12:26
Vital Signs and I&O:
Vital Signs
Temp Pulse Resp BP Pulse Ox
98.0 F 60 18 113/58 97
08/08/24 07:07 08/08/24 04:00 08/08/24 07:07 08/08/24 03:53 08/08/24 07:07
I&O
08/07/24 08/08/24 08/09/24
06:59 06:59 06:59
Intake Total 600 / 600 480 / 480
Output Total 800 / 800 175 / 175
Balance -200 / -200 305 / 305
Physical Exam
Physical Exam
GI: Non Distended and Non Tender
[2024-08-08] MEDS: FARXIGA 10 MG PO (08:43)
[2024-08-08] MEDS: ALDACTONE 25 MG PO (08:43)
[2024-08-08] MEDS: ZESTRIL 10 MG PO (08:44)
[2024-08-08] MEDS: KCL 20 MEQ PO ×2 (08:44→10:20)
[2024-08-08] MEDS: VITAMIN B1 100 MG PO ×2 (08:44→19:50)
[2024-08-08] MEDS: COREG 6.25 MG PO ×2 (08:46→19:49)
[2024-08-08] MEDS: FOLVITE 1 MG PO (08:47)
[2024-08-08] MEDS: TRIAMCINOLONE 0.1% OINTMENT 1 APPLIC TOPICAL ×3 (08:47→22:33)
[2024-08-08] MEDS: MIRALAX PO (08:48)
[2024-08-08] MEDS: LASIX PO (09:49)
[2024-08-08] MEDS: DESENEX/MITRAZOL/ZEASORB 1 APPLIC TOPICAL ×2 (10:21→19:50)
--- NOTE | 2024-08-08 10:40 | PTCARENOTE ---
Pt having several loose-liquid brown stools this morning. He is tolerating walking to BR with walker, denies SOB. No c/o lightheadedness.
--- NOTE | 2024-08-08 10:51 | W.PN.CARDCBS ---
Today's Communication / Plan
-
Hold Lasix
Likely resume lasix tomorrow if cr improved
Outpt follow up.
BMP one week
Impression / Plan
-
.
PCP: None
Cardiology: Dr. Bartlett, last seen 2010
Impression:
Loss of consciousness 07/30/24, possible Seizure activity
Complete heart block status post permanent pacemaker 07/31/2024
Loss of ventricular capture with lead dislodgment 08/02/2024 s/p RV lead revision 08/03/24
Nonischemic myocardial injury
Cardiomyopathy, nonischemic, EF 40%
Hx cLBBB
Syncope
Severe ETOH use disorder
Marijuana smoker
Hyperglycemia without h/o DM
Deconditioning
Echo 12/20/10: EF 50 to 55% without clear wall motion abnormality, mild MR, normal RV size and function, dilated aortic root measuring 4.1 cm
Echo 07/30/24: EF 40%, base to mid inferolateral, basal to mid inferoseptal and basal inferior munguia hypokinetic, mild concentric LVH, mild MR, mild TR, PAP 45 to 50 mmHg
Catheterization 07/31/2024: Nonobstructive CAD, LVEDP 40
Plan:
-He presented with unresponsive episode with concern for seizure activity. Noted to have complete heart block by EKG. Echocardiogram with EF 40% and wall motion abnormalities with peak troponin of 0.7. Underwent cardiac catheterization 07/31/24 with
nonobstructive CAD and elevated LVEDP. Underwent pacemaker placement 07/31/2024. Then noted to have lead dislodgment on 08/02/2024. status post RV lead revision 08/03/2024
Mild dizziness with getting up with overall stable bps
Consider Tubigrips
Hold lasix today with rising cr with now loose stools.
Check orthostatic vitals
Likely resume lasix at 40 mg daily next 24 hrs if cr improves.
Cont PT eval
Cont HF educatoin
Cont GDMT for NICM with Coreg, lisinopril, Aldactone, farxiga.
Alcohol cessation has been discussed
Please recall if needed.
Discussed with nursing
PREADMIT DATA:
-Patient [facility] today after losing consciousness at home and cardiology is consulted for complete heart block. Patient lives at home with his . Patient saw cardiology in 2010 for preoperative evaluation for possible anal cancer and he had
resection at [facility] and it ended up being benign tissue. Patient never followed up with cardiology again and last saw his PCP in 2016. Patient reports he has been homebound since about 2019. Patient's reports that patient has had visibly increased
ALCALA for the last month. Patient told his that he passed out yesterday, but awoke on his own and went to bed and took a nap. Details of yesterday's syncope are not clear and patient has severe ETOH use disorder. Patient then had an episode today
where he was unresponsive and flailing his arms so his called 911. When EMS arrived the patient was able to ambulate downstairs and in the ambulance he was found to be in complete heart block and was given droperidol 1.25 mg IV x1 plus Zofran 4
mg IV x1. In DHER patient was given Zofran atropine 0.5 mg IV x1. Patient noted to have leukocytosis with left shift, but no fever. He has malodorous LEs, but no obvious wounds.
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
Subjective
Date of Service: August 08, 2024
Pt seen and examined. Some loose stools. No chest pain or shortness of breath.
Objective
Labs:
08/04/24 04:14
08/08/24 04:01
Labs
Hgb 12.1 g/dL (13.0-18.0) L 08/04/24 04:14
Hct 34.6 % (39.0-52.0) L 08/04/24 04:14
Plt Count 154 10^3/uL (130-400) 08/04/24 04:14
PT 17.0 Sec (11.4-14.6) H 07/30/24 18:34
INR 1.38 07/30/24 18:34
APTT 30.1 Sec (23.4-35.0) 07/30/24 18:34
Sodium 137 mmol/L (135-145) 08/08/24 04:01
Potassium 3.5 mmol/L (3.5-5.1) 08/08/24 04:01
BUN 29 mg/dl (9-20) H 08/08/24 04:01
Creatinine 1.3 mg/dL (0.7-1.3) 08/08/24 04:01
Glucose 112 mg/dl (70-99) H 08/08/24 04:01
Vital Signs and I&O:
Vital Signs
Temp Pulse Resp BP Pulse Ox
98.0 F 62 18 105/56 97
08/08/24 07:07 08/08/24 09:00 08/08/24 07:07 08/08/24 07:02 08/08/24 07:07
Vital Signs
Temp Pulse Resp BP Pulse Ox
98.0 F 62 18 105/56 97
08/08/24 07:07 08/08/24 09:00 08/08/24 07:07 08/08/24 07:02 08/08/24 07:07
Intake & Output
08/06/24 08/07/24 08/08/24 08/09/24
06:59 06:59 06:59 06:59
Intake Total 720 / 720 600 / 600 480 / 480
Output Total 4400 / 4400 800 / 800 175 / 175
Balance -3680 / -3680 -200 / -200 305 / 305
Physical Exam
Physical Exam
General: No acute distress, AAOX3
Neck: Negative JVD
Heart: Regular, Negative S3 positive S1/S2, Negative S4, No murmur
Lungs: CTA b/l, negative wheezes/rales/rhonchi
Abd: Positive BS, NT/ND, neg rebound/rigidity/guarding
Ext: Negative cyanosis/clubbing. + lymphedema
Neuro: nonfocal
[2024-08-08] MEDS: KCL 40 MEQ PO (14:07)
--- NOTE | 2024-08-08 15:42 | PTCARENOTE ---
When asked how he felt this afternoon, Pt said he feels occasionally lightheaded when walking. Dr Puente aware. Pt was for possible D/C but now will wait to see how he does overnight.
--- NOTE | 2024-08-08 16:56 | W.PN.HOSP.TC ---
Today's Communication/Plan
-
Hypotension (suspected from both diarrhea from mag Citrate and diuresis) overnight 08/07/24 to 08/08/24 - Hold Lasix and can likely resume lasix tomorrow if cr improved
Diarrhea expected with mag citrate, appreciate GI
Assessment / Plan
Assessment / Plan
Physical Exam
Gen-AAOx3, NAD, obese
HEENT-NC, AT, anicteric, clear oral mm
Neck-supple
CV-reg, no M, +S1/S2
Lungs-clear B/L
Abd-soft, NT, ND
Ext-bilateral lower extremity lymphedema, right greater than left.
Musculoskeletal-no cyanosis, clubbing
Skin-warm and dry
Neuro-grossly non-focal
Psych-calm, cooperative
Assessment/Plan
68-year-old male presented with syncope/seizure, felt to be due to complete heart block. Cardiac cath with nonobstructive disease. Pacemaker placed. Also with alcohol use disorder. Has not seen a physician in many years.
Complete heart block status post permanent pacemaker 07/31/2024
Loss of ventricular capture with lead dislodgment 08/02/2024 s/p RV lead revision 08/03/24
Acute hypoxic respiratory insufficiency -now on room air. but previously required 2 L of nasal cannula oxygen. Wean oxygen down as able. Etiology of respiratory insufficiency most likely due to pulmonary edema due to acute heart failure. Doubt
pneumonia clinically. Check home oxygen assessment prior to discharge.
Hypotension overnight 08/07/24 to 08/08/24 - Hold Lasix. Likely resume lasix tomorrow if cr improved.
Nocturnal Hypoxia 08/04/24 to 08/05/24 -- RESOLVED
Constipation and Abdominal Pain -- Enema on 08/06/24 did not work; consulted GI and magnesium citrate ordered
Acute heart failure with reduced EF exacerbation/nonischemic cardiomyopathy/nonischemic myocardial injury/cardiomyopathy, nonischemic, EF 40% - new diagnosis. Presumed alcohol induced cardiomyopathy given heavy alcohol abuse history.
Echocardiogram shows LVEF 40% with hypokinesis noted. Cardiac catheterization with nonobstructive coronary disease. Completed IV Lasix, now on PO Lasix 40 mg BID per cardiology. BNP 6060.
Lower extremity edema improving, I's and O's are negative. will need BMP/mag in 1 week upon DC
Nonobstructive coronary artery disease
Hypokalemia - magnesium normal. Replete orally. Aldactone increased for better bp control and with hypokalemia.
Complete heart block -presentation with syncope, seizure. TSH 3.47. Dual-chamber permanent pacemaker placed 07/31/24, followed by extraction of failed/dislodged right ventricular pacing lead and implantation of new RV pacing lead utilizing Left
Bundle Branch conduction system capture for pacing performed on 08/03/24
New onset seizures -differential diagnosis includes complete heart block versus alcohol related seizure versus other causes. Denies history of seizures. CT head without acute disease. No indication for antiepileptics currently. Neurology
consulted, no further workup or treatment needed.
Transient leukocytosis -doubt infection. Suspect leukemoid reaction due to presentation with syncope, seizure, complete heart block. Looks nontoxic. Afebrile.
Bilateral pleural effusions -chest x-ray shows small to moderate right effusion, small left effusion. Patchy parenchymal opacity in the left lower lung most likely atelectasis. Right lower lung atelectasis. Denies significant pulmonary symptoms.
Etiology of pleural effusions presumed to be due to heart failure. Albumin noted to be 2.9.
Troponin elevation -suspect acute nonischemic myocardial injury related to multiple factors including complete heart block, CHF, etc. Troponin trending down.
Chronic lower extremity lymphedema -has not been addressed as an outpatient. Does not have a physician. Recommend outpatient follow-up with lymphedema clinic in [place].
Severe alcohol use disorder -reportedly last drink was July 29. Monitor for alcohol withdrawal syndrome. Continue thiamine, folic acid. Denies history of alcohol withdrawal in the past. Patient interested in quitting. Has not required any
lorazepam over the past 48 hours. Alcohol cessation.
Left bundle branch block
Aortic dilation
Essential hypertension -not on medications at home. Blood pressure stable here. Monitor for now.
History of cLBBB
Marijuana smoker
Hyperglycemia without history of Diabetes Mellitus
Obesity due to excess calories
Full code
PT/OT
Anticipated Discharge: Within 24 hours
Subjective/Interval History
-
Date of Service: August 08, 2024
Patient was seen and examined. He still had some loose stools/diarrhea. He also said his head didn't feel fully right yet, as per patient.
Objective Data
-
Labs:
Laboratory Results
08/08/24
04:01
Sodium 137
Potassium 3.5
Chloride 100
Carbon Dioxide 29
BUN 29 H
Creatinine 1.3
Glucose 112 H
Calcium 8.9
Vital Signs:
Vital Signs
Temp Pulse Resp BP Pulse Ox
97.4 F 60 18 105/66 96
08/08/24 12:26 08/08/24 13:00 08/08/24 12:26 08/08/24 12:20 08/08/24 12:26
I&O
08/07/24 08/08/24 08/09/24
06:59 06:59 06:59
Intake Total 600 / 600 480 / 480 400 / 400
Output Total 800 / 800 175 / 175 150 / 150
Balance -200 / -200 305 / 305 250 / 250
[2024-08-09] VITALS (7 sets, daily range): BP systolic 96–116; BP diastolic 51–81; BMI 32.7
--- NOTE | 2024-08-09 05:19 | PTCARENOTE ---
Pt. very tired tonight, barely able to stay awake at beginning of shift. Tucked into bed last night and slept solidly for a couple of hours. BP's stable ranging 106/52-132/65 through the course of the night. Voided 600 ml dark shelly urine without
difficulty. This morning states he feels much better/refreshed. Hoping for discharge today.
[2024-08-09 05:43] LABS: Blood Urea Nitrogen 29 mg/dl (9-20); Calcium 8.6 mg/dl (8.4-10.2); Carbon Dioxide 26 mmol/L (22-30); Chloride 103 mmol/L (98-107); Estimated Creatinine Clearance 80 ml/min; Glucose 114 mg/dl (70-99); Magnesium 2.3 mg/dl (1.6-2.3); Potassium 4.1 mmol/L (3.5-5.1); Sodium 139 mmol/L (135-145); eGFR > 60.00
[2024-08-09] MEDS: COREG 6.25 MG PO (08:18)
[2024-08-09] MEDS: FARXIGA 10 MG PO (08:18)
[2024-08-09] MEDS: KCL 20 MEQ PO (08:18)
[2024-08-09] MEDS: VITAMIN B1 100 MG PO (08:20)
[2024-08-09] MEDS: ALDACTONE 25 MG PO (08:20)
[2024-08-09] MEDS: FOLVITE 1 MG PO (08:21)
[2024-08-09] MEDS: ZESTRIL 10 MG PO (08:21)
[2024-08-09] MEDS: MIRALAX 17 GRAMS PO (08:22)
[2024-08-09] MEDS: FLUSH (NSS) 1 FLUSH IV (08:24)
[2024-08-09] MEDS: TRIAMCINOLONE 0.1% OINTMENT 1 APPLIC TOPICAL (08:28)
[2024-08-09] MEDS: DESENEX/MITRAZOL/ZEASORB 1 APPLIC TOPICAL (08:28)
--- NOTE | 2024-08-09 09:30 | PTCARENOTE ---
Received patient at change of shift. Patient awake, alert, and oriented. Stated 'slept great with no stomach pain' last night. BP 111/58, 60s A-V paced, 97% on room air. Discussed plan of care. Patient verbalized understanding. Call muse within
reach.
--- NOTE | 2024-08-09 11:23 | W.PN.HOSP.TC ---
Today's Communication/Plan
-
Discharge today
Assessment / Plan
Assessment / Plan
Physical Exam
Gen-AAOx3, NAD, obese
HEENT-NC, AT, anicteric, clear oral mm
Neck-supple
CV-reg, no M, +S1/S2
Lungs-clear B/L
Abd-soft, NT, ND
Ext-bilateral lower extremity lymphedema, right greater than left.
Musculoskeletal-no cyanosis, clubbing
Skin-warm and dry
Neuro-grossly non-focal
Psych-calm, cooperative
Assessment/Plan
68-year-old male presented with syncope/seizure, felt to be due to complete heart block. Cardiac cath with nonobstructive disease. Pacemaker placed. Also with alcohol use disorder. Has not seen a physician in many years.
Complete heart block status post permanent pacemaker 07/31/2024
Loss of ventricular capture with lead dislodgment 08/02/2024 s/p RV lead revision 08/03/24
Acute hypoxic respiratory insufficiency - RESOLVED - now on room air. but previously required 2 L of nasal cannula oxygen. Wean oxygen down as able. Etiology of respiratory insufficiency most likely due to pulmonary edema due to acute heart
failure. Doubt pneumonia clinically.
Hypotension overnight 08/07/24 to 08/08/24 - Hold Lasix. Likely resume lasix tomorrow if cr improved.
Nocturnal Hypoxia 08/04/24 to 08/05/24 -- RESOLVED
Constipation and Abdominal Pain -- Enema on 08/06/24 did not work; consulted GI and magnesium citrate ordered. Can take Miralax 1-2 times a day at home for constipation -- follow-up with GI outpatient.
Acute heart failure with reduced EF exacerbation/nonischemic cardiomyopathy/nonischemic myocardial injury/cardiomyopathy, nonischemic, EF 40% - new diagnosis. Presumed alcohol induced cardiomyopathy given heavy alcohol abuse history.
Echocardiogram shows LVEF 40% with hypokinesis noted. Cardiac catheterization with nonobstructive coronary disease. Completed IV Lasix, was on PO Lasix 40 mg BID per cardiology-->then lasix held on 08/08/24 due to hypotension and diarrhea-->on
discharge resume with Lasix 40 mg PO daily. Continue Coreg, lisinopril, Aldactone, farxiga. BNP 6060.
Lower extremity edema improving, I's and O's are negative. Will need BMP/mag within 1 week upon discharge.
Nonobstructive coronary artery disease
Hypokalemia - magnesium normal. Replete orally. Aldactone increased for better bp control and with hypokalemia.
Complete heart block - presentation with syncope, seizure. TSH 3.47. Dual-chamber permanent pacemaker placed 07/31/24, followed by extraction of failed/dislodged right ventricular pacing lead and implantation of new RV pacing lead utilizing Left
Bundle Branch conduction system capture for pacing performed on 08/03/24
New onset seizures -differential diagnosis includes complete heart block versus alcohol related seizure versus other causes. Denies history of seizures. CT head without acute disease. No indication for antiepileptics currently. Neurology
consulted, no further workup or treatment needed.
Transient leukocytosis -doubt infection. Suspect leukemoid reaction due to presentation with syncope, seizure, complete heart block. Looks nontoxic. Afebrile.
Bilateral pleural effusions -chest x-ray shows small to moderate right effusion, small left effusion. Patchy parenchymal opacity in the left lower lung most likely atelectasis. Right lower lung atelectasis. Denies significant pulmonary symptoms.
Etiology of pleural effusions presumed to be due to heart failure. Albumin noted to be 2.9. Pulmonary follow-up.
Troponin elevation -suspect acute nonischemic myocardial injury related to multiple factors including complete heart block, CHF, etc. Troponin trending down.
Chronic lower extremity lymphedema -has not been addressed as an outpatient. Does not have a physician. Recommend outpatient follow-up with lymphedema clinic in [place].
Severe alcohol use disorder -reportedly last drink was July 29. Monitor for alcohol withdrawal syndrome. Continue thiamine, folic acid. Denies history of alcohol withdrawal in the past. Patient interested in quitting. Has not required any
lorazepam over the past 48 hours. Alcohol cessation.
Left bundle branch block
Aortic dilation
Essential hypertension -not on medications at home. Blood pressure stable here. Monitor for now.
History of cLBBB
Marijuana smoker
Hyperglycemia without history of Diabetes Mellitus
Obesity due to excess calories
Full code
PT/OT
More than 30 minutes spent in discharge including
Final examination of the patient
Summarizing hospital stay
Instructions for continuing care to all relevant caregivers
Preparation of discharge records, prescriptions, and referral forms
Total time spent (in minutes): 40
Anticipated Discharge: Today
Subjective/Interval History
-
Date of Service: August 09, 2024
Patient was seen and examined. He had a bowel movement this morning. He denied any dizziness, chest pain or any other new complaints. He said his abdominal pain is better now.
Objective Data
-
Labs:
Laboratory Results
08/09/24
04:31
Sodium 139
Potassium 4.1
Chloride 103
Carbon Dioxide 26
BUN 29 H
Creatinine 1.1
Glucose 114 H
Calcium 8.6
Vital Signs:
Vital Signs
Temp Pulse Resp BP Pulse Ox
98.9 F 60 20 111/58 97
08/09/24 06:56 08/09/24 09:00 08/09/24 06:56 08/09/24 08:18 08/09/24 06:58
I&O
08/08/24 08/09/24 08/10/24
06:59 06:59 06:59
Intake Total 480 / 480 640 / 640
Output Total 175 / 175 750 / 750 225 / 225
Balance 305 / 305 -110 / -110 -225 / -225
[2024-08-09] MEDS: PREVNAR 20 0.5 ML IM (15:26)
--- NOTE | 2024-08-09 16:37 | PTCARENOTE ---
Patient was discharged with instructions, Pacer card, medication list, walker, and bedside commode. Instructions gone over with and patient. Follow-up apt scheduled for tomorrow. IV and tele pack removed. Belongings taken with patient. Patient
taken outside by staff member.
== END 2024-08-09 16:40 | disposition home health service (06) | DRG 242 ==
LOC: IVU 14:47
PROVIDERS: Hospitalist; Internal Medicine Cardiovascular Disease; Internal Medicine Critical Care Medicine; Internal Medicine Interventional Cardiology; Nurse Practitioner; Nurse Practitioner Adult Health; Nurse Practitioner Family; Physician Assistant; ADMITTING PHYSICIAN Hospitalist; ATTENDING PHYSICIAN Hospitalist; CONSULT PHYSICIAN Internal Medicine Critical Care Medicine; CONSULT PHYSICIAN Nuclear Medicine Nuclear Cardiology; CONSULT PHYSICIAN Psychiatry & Neurology Neurology; EMERGENCY PHYSICIAN Emergency Medicine; FAMILY PHYSICIAN Internal Medicine; OTHER PHYSICIAN Internal Medicine Gastroenterology
PROC: 4A023N7 Measurement of Cardiac Sampling and Pressure, Left Heart, Percutaneous Approach (ICD-10-PCS; 2024-07-31)
PROC: B211YZZ Fluoroscopy of Multiple Coronary Arteries using Other Contrast (ICD-10-PCS; 2024-07-31)
PROC: 0JH606Z Insertion of Pacemaker, Dual Chamber into Chest Subcutaneous Tissue and Fascia, Open Approach (ICD-10-PCS; 2024-07-31)
PROC: 02HK3JZ Insertion of Pacemaker Lead into Right Ventricle, Percutaneous Approach (ICD-10-PCS; 2024-07-31)
PROC: 02H63JZ Insertion of Pacemaker Lead into Right Atrium, Percutaneous Approach (ICD-10-PCS; 2024-07-31)
PROC: 02PA3MZ Removal of Cardiac Lead from Heart, Percutaneous Approach (ICD-10-PCS; 2024-08-03)
DX: I44.2 Atrioventricular block, complete (principal); I50.23 Acute on chronic systolic (congestive) heart failure; I42.8 Other cardiomyopathies; I5A Non-ischemic myocardial injury (non-traumatic); T82.120A Displacement of cardiac electrode, initial encounter; K52.1 Toxic gastroenteritis and colitis; J98.11 Atelectasis; I44.7 Left bundle-branch block, unspecified; I77.819 Aortic ectasia, unspecified site; I89.0 Lymphedema, not elsewhere classified; R73.9 Hyperglycemia, unspecified; R56.9 Unspecified convulsions; I25.10 Atherosclerotic heart disease of native coronary artery without angina pectoris; R06.89 Other abnormalities of breathing; R09.02 Hypoxemia; E87.6 Hypokalemia; Y83.8 Other surgical procedures as the cause of abnormal reaction of the patient, or of later complication, without mention of misadventure at the time of the procedure; D72.828 Other elevated white blood cell count; E78.5 Hyperlipidemia, unspecified; K59.00 Constipation, unspecified; I95.2 Hypotension due to drugs; T50.1X5A Adverse effect of loop [high-ceiling] diuretics, initial encounter; T47.3X5A Adverse effect of saline and osmotic laxatives, initial encounter; I11.0 Hypertensive heart disease with heart failure; F10.20 Alcohol dependence, uncomplicated; E66.09 Other obesity due to excess calories; Z68.32 Body mass index [BMI] 32.0-32.9, adult; Z91.148 Patient's other noncompliance with medication regimen for other reason; Z87.820 Personal history of traumatic brain injury; Z90.81 Acquired absence of spleen; Z11.52 Encounter for screening for COVID-19
CPT/HCPCS: 33208; 33216; 33235; 36600; 70450; 71045; 74018; 80048; 80053; 80069; 81003; 81015; 82077; 82805; 83036; 83690; 83735; 83880; 84100; 84145; 84443; 84484; 85025; 85027; 85610; 85730; 86803; 87040; 87070; 87205; 87449; 87811; 90677; 93005; 93306; 93458; 96361; 96374; 97116; 97163; 97167; 97530; 97535; 99291; C1769; C1785; C1887; C1892; C1894; C1898; G0009; Q9967

== ENCOUNTER → 2024-08-14 16:37 | Outpatient (REF) | payer MEDICARE, SELFPAY ==
[2024-08-14 18:11] LABS: Blood Urea Nitrogen 21 mg/dl (9-20); Calcium 9.3 mg/dl (8.4-10.2); Carbon Dioxide 21 mmol/L (22-30); Chloride 104 mmol/L (98-107); Glucose 95 mg/dl (70-99); Potassium 4.3 mmol/L (3.5-5.1); Sodium 141 mmol/L (135-145); eGFR > 60.00
== END ==
LOC: RAD 16:37
PROVIDERS: ATTENDING PHYSICIAN Hospitalist; REFERRING PHYSICIAN Nurse Practitioner
DX: M79.89 Other specified soft tissue disorders (principal); Z92.89 Personal history of other medical treatment; Z95.0 Presence of cardiac pacemaker
CPT/HCPCS: 36415; 71046; 80048; 93971

== ENCOUNTER 2024-09-30 07:55 | Day surgery (SDC) | payer MEDICARE, SELFPAY ==
[2024-09-30] VITALS (9 sets, daily range): BP systolic 85–121; BP diastolic 48–104; BMI 31.6
[2024-09-30 08:17] LABS: Hematocrit 30.6 % (39.0-52.0); Mean Corp Hgb Conc. 35.9 g/dL (33.0-37.0); Mean Corpuscular Hgb 31.7 pg (27.0-31.0); Mean Corpuscular Volume 88.2 fL (80.0-94.0); Mean Platelet Volume 10.4 fL (7.4-10.4); Platelet Count 192 10^3/uL (130-400); Red Blood Cell Count 3.47 10^6/uL (4.70-6.10); Red Cell Dist. Width 14.3 % (11.5-14.5); White Blood Cell Count 7.8 10^3/uL (4.8-10.8)
[2024-09-30 08:46] LABS: ALT (SGPT) 26 U/L (0-50); AST (SGOT) 22 U/L (17-59); Albumin 4.4 g/dl (3.5-5.0); Alkaline Phosphatase 59 U/L (38-126); Blood Urea Nitrogen 69 mg/dl (9-20); Calcium 9.8 mg/dl (8.4-10.2); Carbon Dioxide 15 mmol/L (22-30); Chloride 108 mmol/L (98-107); Estimated Creatinine Clearance 42 ml/min; Glucose 103 mg/dl (70-99); Potassium 5.2 mmol/L (3.5-5.1); Sodium 140 mmol/L (135-145); Total Bilirubin 1.5 mg/dl (0.2-1.3); Total Protein 8.1 g/dl (6.3-8.2); eGFR 35.24
--- NOTE | 2024-09-30 10:20 | ITS.CL.PACE ---
Load Mixer - Pacemaker Implant
Pacemaker Implant
Procedure Report:
Procedure Report:
PACEMAKER IMPLANT REPORT
Primary lead manufacturing engineering tech: Dr Eddi Kyle
Date of Procedure: 09/30/24
Procedure:
Revision of dislodged right atrial lead
Indication/Diagnosis:
Non-reversible symptomatic bradycardia due to third degree atrioventricular block
HISTORY:
Patient is a 68-year-old male with a past medical history significant for alcohol use disorder, hyperglycemia without diabetes, who presented with complete heart block following seizure activity/syncope at home. Patient noted on echocardiography
LVEF of 40% with wall motion abnormality. Patient underwent left heart catheterization which demonstrated nonobstructive coronary artery disease. Due to symptomatic complete heart block, patient undergo implantation of dual-chamber pacemaker on
07/31/24 with use of Medtronic 3830 ventricular pacing lead for left bundle branch conduction system pacing. The right ventricular pacing lead dislodged requiring revision on August 03, 2024. Since that time he has demonstrated dislodgment of his
right atrial lead and presents today for attempted repositioning and potential replacement of his right atrial pacing lead
PROCEDURE:
After informed consent was obtained, 'time out' was called and confirmed, the patient was prepped and draped in a sterile fashion. Lidocaine with epi was used for local anesthesia. An incision was made along the left chest and a pre-pectoral
pocket was formed. The generator and leads were carefully dissected from the pocket.
The right atrial lead was from the pacemaker generator. Sutures at the right atrial lead suture sleeves were severed. Active-fixation on the right atrial lead was withdrawn. A curved stylette was placed within the right atrial lead.
Several different locations were attempted until ultimately an adequate location at the right atrial appendage area was found. Active-fixation was used to adhere the lead tip to the right atrial wall. The lead was secured via it suture sleeve to
the pectoral fascia. The lead and was placed back within the pacemaker header and the pin was secured. The pocket was irrigated with antibiotic solution. An antibiotic sleeve was used and the device and leads were placed back in the pocket.
Suture was used to affix the generator to the pectoral fascia. Fluoroscopy demonstrated stable positions of both the right ventricular and right atrial leads. The pocket was closed in the typical fashion.
RETAINED:
Medtronic [id number], SN: [id number], Left Pectoral
RA: Medtronic 5076-45, SN: [id number], RAA (repositioned to a different right atrial appendage location)
Medtronic 3830 serial # [id number], Interventricular septum at LBB
DEVICE TESTING:
Sensing: RA 1 mV, RV 8 mV
Capture: RA 1 V@0.4ms, RV 1 V@0.4ms
Ohms: RA 323, RV 513 (bipolar)
FINAL PROGRAMMING
Yoseph Pacing: DDDR 60-130 ppm
COMPLICATIONS:
None
CONCLUSIONS:
Repositioning of right atrial lead.
RECOMMENDATIONS:
1. Post-op care (tele, CXR, IV abx)
2. In-Office wound check in 5-7 days
Copy to:
Dr Eddi Kyle
[2024-09-30] MEDS: TYLENOL 650 MG PO (13:26)
--- NOTE | 2024-09-30 14:53 | PTCARENOTE ---
Pt reports incissional pain 6/10, no change with Tylenol 650 PO. Angelia CABLE INSTALLATION TECHNICIAN evaluated site and took some pressure off the pressure dressing. Mild immediate relief but pt s still rating pain 6/10. Dressing noted with old dry blood. the two areas were
demarcated by CABLE INSTALLATION TECHNICIAN. No change in appearance. No redness or swelling in the surrounding areas. Dr. Denzel Awad also informed of pain.
--- NOTE | 2024-09-30 14:57 | PTCARENOTE ---
Addendum. MD is presently in a case. Will follow with up him when available.
[2024-09-30] MEDS: ANCEF 5 IV (15:00)
== END 2024-09-30 15:38 | disposition home or self-care (01) ==
LOC: CATH 07:55
PROVIDERS: ATTENDING PHYSICIAN Internal Medicine Cardiovascular Disease; FAMILY PHYSICIAN Hospitalist; OTHER PHYSICIAN Nuclear Medicine Nuclear Cardiology
DX: T82.120A Displacement of cardiac electrode, initial encounter (principal); Y83.1 Surgical operation with implant of artificial internal device as the cause of abnormal reaction of the patient, or of later complication, without mention of misadventure at the time of the procedure; R00.1 Bradycardia, unspecified; I44.2 Atrioventricular block, complete; F10.10 Alcohol abuse, uncomplicated; I25.10 Atherosclerotic heart disease of native coronary artery without angina pectoris; R73.9 Hyperglycemia, unspecified; R55 Syncope and collapse
CPT/HCPCS: 33215; 80053; 85027; 93005

== ENCOUNTER → 2024-10-10 09:35 | Outpatient (REF) | payer MEDICARE, SELFPAY | LOC: RAD 09:35 | PROVIDERS: ATTENDING PHYSICIAN Internal Medicine Cardiovascular Disease; FAMILY PHYSICIAN Hospitalist | DX: T82.110A Breakdown (mechanical) of cardiac electrode, initial encounter (principal) | CPT/HCPCS: 71045 ==

== ENCOUNTER 2024-10-19 10:24 | Day surgery (SDC) | payer MEDICARE, SELFPAY ==
--- NOTE | 2024-10-14 10:18 | HP.FOC2 ---
Focused History & Physical
Chief Complaint
HPI:
Chief Complaint: RA lead dislodgement
HPI / Indication for Planned Procedure:
69 yo WM with CHB post PPM 07/31 with RA lead dislodgement and revision 08/03, dislodgement again 09/17 with revision 09/30, at incision check appointment RA lead dislodged 10/07. He presents today for Lead revision.
Relevant Past Medical History: Coronary Artery Disease, Hypertension and Other (HLD, anal mass, diverticulosis, LBBB, lymphedema, CHB, NICMP)
Relevant Social History: ETOH (history of Alcohol use disorder)
Relevant Family History: Negative
Relevant Past Surgical History: Positive for (anal mass resection, orthopedic sx, PPM with 3 revisions)
Review of Systems
Review of Pertinent Systems: All Systems Negative
Medication
See Medication form for detailed medications: Yes
Medication List (including Herbals & OTC):
dapagliflozin propanediol 10 mg tablet 10 mg PO DAILY #30 tabs 08/09/24
folic acid 1 mg tablet 1 mg PO DAILY #14 tabs 08/09/24
miconazole nitrate 2 % topical powder (Miconazorb AF) 1 applic topical BID #85 grams 08/09/24
polyethylene glycol 3350 17 gram oral powder packet (HealthyLax) 17 g PO DAILY #30 ea 08/09/24
thiamine HCl (vitamin B1) 100 mg tablet 100 mg PO DAILY #14 tabs 08/09/24
triamcinolone acetonide 0.1 % topical ointment 1 applic topical TID #15 grams 08/09/24
carvedilol 3.125 mg tablet 3.125 mg PO BID 09/30/24
furosemide 40 mg tablet 20 mg PO DAILY 09/30/24
lisinopril 10 mg tablet 5 mg PO DAILY 09/30/24
spironolactone 25 mg tablet 12.5 mg PO DAILY 09/30/24
Medications Reviewed: Yes
Allergies and Reactions
Patient has Allergies: No
Noted Allergies and Reactions:
Allergy/AdvReac Type Severity Reaction Status Date / Time
No Known Allergies Allergy Verified 09/30/24 09:03
Pertinent Physical Exam
All Other Systems: Negative
Head/Neck: Normal
Lungs: Normal
Heart: Normal
Abdomen: Normal
Extremities: Normal
Neurological: Normal
Diagnosis / Assessment
CHB with PPM placement 07/31 with RA lead dislodgement x3 presents today for RA lead revision.
Plan / Procedure
RA lead revision today, Admit o/n post for observation and CXR, Abx.
Continue GDMT for HF
Anesthesia/Sedation to be done by Anesthesia Provider: Yes
[2024-10-19] VITALS (18 sets, daily range): BP systolic 90–136; BP diastolic 40–93
--- NOTE | 2024-10-19 12:59 | ITS.CL.PACE ---
[facility] - Pacemaker Implant
Pacemaker Implant
Procedure Report:
PACEMAKER IMPLANT REPORT
Primary zigzag appliquer: Dr Eddi Kyle
Date of Procedure: 10/19/24
Procedure:
Extraction of failed right atrial pacing lead
Implantation of new right atrial pacing lead
Indication/Diagnosis:
Non-reversible symptomatic bradycardia due to third degree atrioventricular block
HISTORY:
Patient is a 68-year-old male with a past medical history significant for alcohol use disorder, hyperglycemia without diabetes, who presented with complete heart block following seizure activity/syncope at home. Patient noted on echocardiography
LVEF of 40% with wall motion abnormality. Patient underwent left heart catheterization which demonstrated nonobstructive coronary artery disease. Due to symptomatic complete heart block, patient undergo implantation of dual-chamber pacemaker on
07/31/24 with use of Medtronic 3830 ventricular pacing lead for left bundle branch conduction system pacing. The right ventricular pacing lead dislodged requiring revision on August 03, 2024. Since that time he has demonstrated dislodgment of his
right atrial lead which was repositioned on October 03, 2024. The right atrial lead has again dislodged and he presents today for extraction of the failed right atrial lead and implantation of a new right atrial lead.
PROCEDURE:
After informed consent was obtained, 'time out' was called and confirmed, the patient was prepped and draped in a sterile fashion. Lidocaine with epi was used for local anesthesia. An incision was made along the left chest and a pre-pectoral
pocket was formed. The generator and leads were carefully dissected from the pocket.
The right atrial lead was from the pacemaker generator. Sutures at the right atrial lead suture sleeves were severed. Active-fixation on the right atrial lead was withdrawn. A straight stylette was placed within the right atrial lead.
Using a micropuncture access kit the outer insulation was breached allowing placement of the micropuncture wire. The lead and wire were then advanced into the central venous system where the wire was then from the lead. The lead was
removed. The wire was retained allowing Seldinger technique for placement of a 7 Czech sheath. Through this sheath the new right atrial pacing lead was placed. A preformed J right atrial lead is utilized. Tip location at the right atrial
appendage provides adequate pacing and sensing thresholds and stable lead impedance.
The lead was secured via it suture sleeve to the pectoral fascia. The lead and was placed back within the pacemaker header and the pin was secured. The pocket was irrigated with antibiotic solution. An antibiotic sleeve was used and the device
and leads were placed back in the pocket. Suture was used to affix the generator to the pectoral fascia. Fluoroscopy demonstrated stable positions of both the right ventricular and right atrial leads. The pocket was closed in the typical fashion.
EXTRACTED:
RA: Medtronic 5076-45, SN: [id number]
IMPLANTED:
RA: Medtronic 4574, 53 cm length serial number [id number]
RETAINED:
Medtronic [id number], SN: [id number], Left Pectoral
Medtronic 3830 serial # [id number], Interventricular septum at LBB
DEVICE TESTING:
Sensing: RA 1.1 mV, RV 15 mV
Capture: RA 0.375 V@0.4ms, RV 1.25 V@0.4ms
Ohms: RA 775, RV 550 (bipolar)
FINAL PROGRAMMING
Yoseph Pacing: DDDR 60-130 ppm
COMPLICATIONS:
None
CONCLUSIONS:
- Extraction of failed right atrial pacing lead
- Implantation of new right atrial pacing lead
RECOMMENDATIONS:
Observation and consideration for discharge to home later today
In-Office wound check in 7 days
Copy to:
Dr Eddi Kyle
[2024-10-19] MEDS: ANCEF 5 IV (16:54)
== END 2024-10-19 17:15 | disposition home or self-care (01) ==
LOC: CATH 10:24
PROVIDERS: ATTENDING PHYSICIAN Internal Medicine Cardiovascular Disease; FAMILY PHYSICIAN Hospitalist; OTHER PHYSICIAN Nuclear Medicine Nuclear Cardiology
DX: T82.110D Breakdown (mechanical) of cardiac electrode, subsequent encounter (principal); I44.2 Atrioventricular block, complete; I25.10 Atherosclerotic heart disease of native coronary artery without angina pectoris; I10 Essential (primary) hypertension; E78.5 Hyperlipidemia, unspecified
CPT/HCPCS: 33235; 33216; C1892; 93005; C1898

== ENCOUNTER → 2024-11-20 09:13 | Outpatient (REF) | payer MEDICARE, SELFPAY ==
[2024-11-20 10:52] LABS: ALT (SGPT) 16 U/L (0-50); AST (SGOT) 20 U/L (17-59); Albumin 3.8 g/dl (3.5-5.0); Alkaline Phosphatase 63 U/L (38-126); Blood Urea Nitrogen 32 mg/dl (9-20); Calcium 9.4 mg/dl (8.4-10.2); Carbon Dioxide 25 mmol/L (22-30); Chloride 106 mmol/L (98-107); Glucose 98 mg/dl (70-99); HDL Cholesterol 43 mg/dl; Iron 104 ug/dl (49-181); LDL Cholesterol, Calculated 95 mg/dl; Potassium 4.9 mmol/L (3.5-5.1); Sodium 138 mmol/L (135-145); Total Bilirubin 0.7 mg/dl (0.2-1.3); Total Cholesterol 158 mg/dl (50-199); Total Protein 7.2 g/dl (6.3-8.2); Triglyceride 103 mg/dl (10-149); Very Low Density Lipoprotein 20 mg/dl (0-30); eGFR 54.07
[2024-11-20 11:01] LABS: Percent Saturation 45 % (20-50); Total Iron Binding Capacity 231 ug/dl (261-462)
[2024-11-20 11:44] LABS: % Basophils 0.3 % (0-2); % Eosinophils 4.4 % (0-6); % Immature Granulocytes 0.5 % (0-0.5); % Lymphocytes 23.8 % (20.5-51.1); % Monocytes 5.8 % (1.7-9.3); % Neutrophils 65.2 % (42.2-75.2); Absolute Eosinophils 0.4 10^3/uL (0-0.7); Absolute Lymphocytes 2.1 10^3/uL (1.2-3.4); Absolute Monocytes 0.5 10^3/uL (0.1-0.6); Absolute Neutrophils 5.7 10^3/uL (1.4-6.5); Hematocrit 29.7 % (39.0-52.0); Hemoglobin 10.2 g/dL (13.0-18.0); Mean Corp Hgb Conc. 34.3 g/dL (33.0-37.0); Mean Corpuscular Hgb 31.2 pg (27.0-31.0); Mean Corpuscular Volume 90.8 fL (80.0-94.0); Mean Platelet Volume 10.4 fL (7.4-10.4); Nucleated Red Blood Cells % 0 % (-); Platelet Count 256 10^3/uL (130-400); Red Blood Cell Count 3.27 10^6/uL (4.70-6.10); Red Cell Dist. Width 15.3 % (11.5-14.5); White Blood Cell Count 8.7 10^3/uL (4.8-10.8)
[2024-11-20 12:01] LABS: Folate > 20.0 ng/ml (2.76-20); Vitamin B12 306 pg/ml (239-931)
== END ==
LOC: RCS 09:13
PROVIDERS: ATTENDING PHYSICIAN Nuclear Medicine Nuclear Cardiology; FAMILY PHYSICIAN Hospitalist
DX: I42.8 Other cardiomyopathies (principal); I44.2 Atrioventricular block, complete; D64.9 Anemia, unspecified; R79.89 Other specified abnormal findings of blood chemistry
CPT/HCPCS: 36415; 80053; 80061; 82607; 82728; 82746; 83540; 83550; 85025; 93306

== ENCOUNTER → 2025-01-11 16:33 | Outpatient (REF) | payer OTHER, SELFPAY ==
[2025-01-11 17:32] LABS: % Basophils 0.6 % (0-2); % Eosinophils 5.3 % (0-6); % Immature Granulocytes 0.4 % (0-0.5); % Lymphocytes 24.6 % (20.5-51.1); % Monocytes 8.3 % (1.7-9.3); % Neutrophils 60.8 % (42.2-75.2); Absolute Basophils 0.1 10^3/uL (0-0.2); Absolute Eosinophils 0.4 10^3/uL (0-0.7); Absolute Monocytes 0.7 10^3/uL (0.1-0.6); Absolute Neutrophils 4.8 10^3/uL (1.4-6.5); Hematocrit 38.2 % (39.0-52.0); Hemoglobin 13.4 g/dL (13.0-18.0); Mean Corp Hgb Conc. 35.1 g/dL (33.0-37.0); Mean Corpuscular Hgb 32.6 pg (27.0-31.0); Mean Corpuscular Volume 92.9 fL (80.0-94.0); Nucleated Red Blood Cells % 0 % (-); Platelet Count 226 10^3/uL (130-400); Red Blood Cell Count 4.11 10^6/uL (4.70-6.10); Red Cell Dist. Width 16.3 % (11.5-14.5); White Blood Cell Count 7.9 10^3/uL (4.8-10.8)
[2025-01-11 17:45] LABS: ALT (SGPT) 14 U/L (0-50); AST (SGOT) 21 U/L (17-59); Albumin 3.9 g/dl (3.5-5.0); Alkaline Phosphatase 76 U/L (38-126); Blood Urea Nitrogen 15 mg/dl (9-20); Calcium 9.1 mg/dl (8.4-10.2); Carbon Dioxide 28 mmol/L (22-30); Chloride 101 mmol/L (98-107); Glucose 99 mg/dl (70-99); Iron 179 ug/dl (49-181); Potassium 4.3 mmol/L (3.5-5.1); Sodium 136 mmol/L (135-145); Total Bilirubin 1.1 mg/dl (0.2-1.3); Total Protein 7.4 g/dl (6.3-8.2); eGFR > 60.00
[2025-01-11 17:54] LABS: Percent Saturation 76 % (20-50); Total Iron Binding Capacity 234 ug/dl (261-462)
[2025-01-13 15:50] LABS: Transferrin 195 mg/dL (200-360)
== END ==
LOC: REG 16:33
PROVIDERS: ATTENDING PHYSICIAN Hospitalist
DX: R79.89 Other specified abnormal findings of blood chemistry (principal)
CPT/HCPCS: 36415; 80053; 82728; 83540; 83550; 84466; 85025

== ENCOUNTER 2025-05-25 10:13 | Day surgery (SDC) | payer OTHER, SELFPAY ==
--- NOTE | 2025-05-25 11:37 | ITS.CL.CARDI ---
[facility] - Cardioversion
Cardioversion
Procedure Report:
Procedure: Direct current electrical cardioversion
Pre-operative diagnosis: Persistent atrial fibrillation
Post-operative diagnosis: Persistent atrial fibrillation status post DC cardioversion to sinus rhythm
Anesthesia: MAC
Attending Physician: Manohar Hennessy MD
Procedure Description: The patient was brought to the electrophysiology laboratory in the fasting state. Adherence to anticoagulation regimen was confirmed. Informed consent was obtained from the patient prior to the start of the procedure.
Electrodes were placed on the patient and connected to an external defibrillator. Monitoring of blood pressure, ECG tracings, and pulse oximetry was initiated. The pads were applied to the patient in the anterior and posterior positions. The patient
was sedated by the anesthesiologist. A 200 joule biphasic synchronized shock was delivered to the patient under MAC anesthesia. Sinus rhythm was successfully restored. The patient recovered uneventfully from MAC anesthesia. There were no immediate
post-procedure complications. The patient left the lab in good condition. The attending physician was present throughout the entire procedure.
Impression: Successful direct current cardioversion with jainism of sinus rhythm after one 200 joule biphasic synchronized shock.
[2025-05-25 12:02] VITALS: BMI 32.4
== END 2025-05-25 12:30 | disposition home or self-care (01) ==
LOC: CATH 10:13
PROVIDERS: ATTENDING PHYSICIAN Internal Medicine Cardiovascular Disease; FAMILY PHYSICIAN Hospitalist; REFERRING PHYSICIAN Nuclear Medicine Nuclear Cardiology
DX: I48.19 Other persistent atrial fibrillation (principal); I10 Essential (primary) hypertension; E78.2 Mixed hyperlipidemia; I42.8 Other cardiomyopathies; I44.2 Atrioventricular block, complete; I44.7 Left bundle-branch block, unspecified; Z79.01 Long term (current) use of anticoagulants
CPT/HCPCS: 92960; 93005

== ENCOUNTER → 2025-08-07 08:49 | Outpatient (REF) | payer OTHER, SELFPAY ==
[2025-08-07 10:22] LABS: Blood Urea Nitrogen 22 mg/dl (9-20); Calcium 9.5 mg/dl (8.4-10.2); Carbon Dioxide 28 mmol/L (22-30); Chloride 106 mmol/L (98-107); Glucose 94 mg/dl (70-99); Potassium 4.7 mmol/L (3.5-5.1); Sodium 140 mmol/L (135-145); eGFR > 60.00
== END ==
LOC: REG 08:49
PROVIDERS: ATTENDING PHYSICIAN Nuclear Medicine Nuclear Cardiology; FAMILY PHYSICIAN Hospitalist
DX: I10 Essential (primary) hypertension (principal); I89.0 Lymphedema, not elsewhere classified; E78.2 Mixed hyperlipidemia
CPT/HCPCS: 36415; 80048